=== PATIENT | male | born 1960 | race Caucasian/White ===

== ENCOUNTER → 2016-09-07 | Outpatient (CLI) | payer SELFPAY ==
--- NOTE | 2016-09-07 13:31 | REP ---
Clinical: Shortness of breath. Technique: PA and lateral. Comparison: 05/16/2015. Findings: Mediastinum and cardiac silhouette are stable - mild cardiomegaly again suggested. Lung monsalve demonstrate prominent pulmonary vasculature suggesting the possibility of pulmonary venous congestion versus bronchitis. No focal consolidation, effusion, or pneumothorax. Impression: Increased markings noted bilaterally similar to prior examination. Differential diagnosis would include bronchitis/reactive airway disease as well as mild pulmonary venous congestion. Signed by Charbel Celestin MD 09/07/2016 01:22 P
== END ==
LOC: M WUC 12:48
PROVIDERS: ATTEND Physician Assistant
DX: J20.9 Acute bronchitis, unspecified (principal); R06.02 Shortness of breath; Z72.0 Tobacco use

== ENCOUNTER 2017-07-13 17:06 | Inpatient (IN) | payer SELFPAY ==
[2017-07-13] MEDS: IPRATROPIUM 0.5MG/ALBUTEROL 2.5MG INH SOL UD 3ML (DUONEB)(J7620) NEB ×2 (17:56→19:34)
[2017-07-13 17:59] LABS: ABG BASE EXCESS 12.8 (-2.0-2.0); ABG HCO3 45.9 MEQ/L (22.0-26.0); ABG O2 SATURATION 84.2 % (95.0-99.0); ABG PARTIAL PRESSURE O2 50.2 mmHg (75.0-100.0); ABG STANDARD HCO3 36.2 MEQ/L (22.0-26.0); ABG TOTAL CO2 48.8 MEQ/L (22.0-29.0); ABG pH (ARTERIAL) 7.304 UNITS (7.350-7.450)
[2017-07-13 18:00] LABS: ABG PARTIAL PRESSURE CO2 94.5 mmHg (35.0-45.0)
[2017-07-13] MEDS: methylPREDNISolone INJ 125 MG/2 ML VIAL (J2930) IV (18:09)
[2017-07-13 18:18] LABS: BASO # 0.1 10^3/uL (0.0-0.2); BASO % 0.7 % (0.0-1.0); EOS # 0.1 10^3/uL (0.0-0.50); EOS % 1.2 % (0.0-3.0); HEMATOCRIT 60.3 % (42.0-52.0); HEMOGLOBIN 18.7 g/dl (14.0-18.0); IMMATURE GRANULOCYTE % 0.5 % (0-0); LYMPH # 1.1 10^3/uL (1.5-4.5); MEAN CORPUSCULAR HEMOGLOBIN 29.4 pg (27.0-33.0); MEAN CORPUSCULAR VOLUME 94.8 fl (80.0-96.0); MONO # 0.9 10^3/uL (0.0-0.8); MONO % 10.4 % (0.0-5.0); NEUTROPHILS % 73.2 % (36.0-66.0); PLATELET COUNT, AUTOMATED 116 10^3/uL (150-450); RED BLOOD COUNT 6.36 10^6/uL (4.30-6.10); RED CELL DISTRIBUTION WIDTH 16.9 % (11.5-14.5); WHITE BLOOD COUNT 8.2 10^3/uL (4.0-10.0)
[2017-07-13 18:21] LABS: SUSPECT SAMPLE POS FLAG
[2017-07-13 18:34] LABS: ANION GAP 2 MEQ/L (8-16); BLOOD UREA NITROGEN 64 MG/DL (7-18); CARBON DIOXIDE LEVEL 43 MEQ/L (21-32); CHLORIDE LEVEL 98 MEQ/L (98-107); CREATININE FOR GFR 1.43 MG/DL (0.70-1.30); GLOMERULAR FILTRATION RATE 54.5 (>56); GLUCOSE, FASTING 126 MG/DL (70-105); POTASSIUM SERUM 4.5 MEQ/L (3.5-5.1); SODIUM LEVEL 143 MEQ/L (136-145)
[2017-07-13 18:38] LABS: ALBUMIN 3.1 GM/DL (3.2-5.2); ALBUMIN/GLOBULIN RATIO 1.11 (1.00-1.93); ALKALINE PHOSPHATASE 65 U/L (45-117); ALT/SGPT 25 U/L (12-78); AST/SGOT 17 U/L (7-37); BILIRUBIN,DIRECT 0.1 MG/DL (0.0-0.2); BILIRUBIN,TOTAL 0.5 MG/DL (0.2-1.0); NT-PRO BNP 2943 PG/ML (<125); TOTAL PROTEIN 5.9 GM/DL (6.4-8.2)
[2017-07-13] MEDS ORDERED: ISOVUE-370 76% 100ML VIAL (Q9967) As Ordered (18:40)
[2017-07-13] MEDS: FUROSEMIDE 40 MG/4 ML VIAL (J1940) IV (19:07)
[2017-07-13] MEDS: dexameTHASONE 20 MG/5 ML VIAL (J1100) IV (19:35)
[2017-07-13 21:34] LABS: ABG BASE EXCESS 6.3 (-2.0-2.0); ABG HCO3 38.2 MEQ/L (22.0-26.0); ABG O2 SATURATION 91.9 % (95.0-99.0); ABG PARTIAL PRESSURE O2 64.8 mmHg (75.0-100.0); ABG TOTAL CO2 40.7 MEQ/L (22.0-29.0)
[2017-07-13 21:37] LABS: ABG PARTIAL PRESSURE CO2 83.1 mmHg (35.0-45.0)
[2017-07-13] MEDS ORDERED: GLUCAGON FOR INJ 1 MG VIAL (J1610) SC (23:45)
[2017-07-13] MEDS ORDERED: GLUCOSE 4 GM CHEW TABLET PO (23:45)
[2017-07-13] MEDS ORDERED: DEXTROSE 50% 50 ML SYRINGE IV (23:45)
[2017-07-14] MEDS: IPRATROPIUM 0.5MG/ALBUTEROL 2.5MG INH SOL UD 3ML (DUONEB)(J7620) NEB ×8 (01:50→23:19)
[2017-07-14 05:47] LABS: ALBUMIN 3.5 GM/DL (3.2-5.2); ALKALINE PHOSPHATASE 76 U/L (45-117); ALT/SGPT 28 U/L (12-78); ANION GAP 3 MEQ/L (8-16); AST/SGOT 17 U/L (7-37); BILIRUBIN,TOTAL 0.6 MG/DL (0.2-1.0); BLOOD UREA NITROGEN 55 MG/DL (7-18); CALCIUM LEVEL 7.9 MG/DL (8.5-10.1); CARBON DIOXIDE LEVEL 43 MEQ/L (21-32); CHLORIDE LEVEL 96 MEQ/L (98-107); CREATININE FOR GFR 1.45 MG/DL (0.70-1.30); GLOMERULAR FILTRATION RATE 53.6 (>56); GLUCOSE, FASTING 300 MG/DL (70-105); POTASSIUM SERUM 4.9 MEQ/L (3.5-5.1); SODIUM LEVEL 142 MEQ/L (136-145)
[2017-07-14] MEDS: predniSONE 20 MG TAB PO (08:07)
[2017-07-14] MEDS: PANTOPRAZOLE 40MG TAB (PROTONIX) PO (08:08)
[2017-07-14] MEDS: AZITHROMYCIN 250 MG TAB PO (08:08)
[2017-07-14] MEDS: LISINOPRIL 20 MG TAB PO (08:08)
[2017-07-14] MEDS: hydroCHLOROthiazide 12.5 MG CAPSULE PO (08:08)
[2017-07-14] MEDS: ASPIRIN 81 MG ENTERIC TAB PO (08:08)
[2017-07-14] MEDS: FUROSEMIDE 80 MG TAB PO (08:08)
[2017-07-14] MEDS: HumaLOG INSULIN (NovoLOG) PER UNIT SC ×4 (08:09→21:00)
[2017-07-14 08:19] LABS: ABG BASE EXCESS 12.2 (-2.0-2.0); ABG HCO3 47.3 MEQ/L (22.0-26.0); ABG O2 SATURATION 91.3 % (95.0-99.0); ABG PARTIAL PRESSURE O2 66.9 mmHg (75.0-100.0); ABG STANDARD HCO3 35.9 MEQ/L (22.0-26.0); ABG TOTAL CO2 50.7 MEQ/L (22.0-29.0)
[2017-07-14 08:25] LABS: ABG pH (ARTERIAL) 7.246 UNITS (7.350-7.450)
[2017-07-14 08:26] LABS: ABG PARTIAL PRESSURE CO2 111.4 mmHg (35.0-45.0)
[2017-07-14] MEDS: FUROSEMIDE 100 MG/10 ML VIAL (J1940) IV ×2 (10:41→12:00)
[2017-07-14 11:22] LABS: ABG BASE EXCESS 10.4 (-2.0-2.0); ABG HCO3 44.1 MEQ/L (22.0-26.0); ABG O2 SATURATION 96.2 % (95.0-99.0); ABG PARTIAL PRESSURE O2 88.3 mmHg (75.0-100.0); ABG STANDARD HCO3 34.3 MEQ/L (22.0-26.0); ABG TOTAL CO2 47.1 MEQ/L (22.0-29.0); ABG pH (ARTERIAL) 7.268 UNITS (7.350-7.450)
[2017-07-14 11:24] LABS: ABG PARTIAL PRESSURE CO2 98.6 mmHg (35.0-45.0)
[2017-07-14 12:14] LABS: BEDSIDE GLUCOSE 174 MG/DL (70-105)
[2017-07-14] MEDS: HEPARIN SOD (PORCINE) 5000 UNITS/ML VIAL SC ×2 (14:00→22:10)
[2017-07-14 17:02] LABS: BEDSIDE GLUCOSE 163 MG/DL (70-105)
[2017-07-14 17:07] LABS: BLOOD UREA NITROGEN 49 MG/DL (7-18); CALCIUM LEVEL 8.4 MG/DL (8.5-10.1); CHLORIDE LEVEL 98 MEQ/L (98-107); CREATININE FOR GFR 1.14 MG/DL (0.70-1.30); GLOMERULAR FILTRATION RATE > 60.0 (>56); GLUCOSE, FASTING 180 MG/DL (70-105); POTASSIUM SERUM 4.7 MEQ/L (3.5-5.1); SODIUM LEVEL 144 MEQ/L (136-145)
[2017-07-14 17:24] LABS: ANION GAP 1 MEQ/L (8-16); CARBON DIOXIDE LEVEL 45 MEQ/L (21-32)
[2017-07-14 22:13] LABS: BEDSIDE GLUCOSE 152 MG/DL (70-105)
[2017-07-15] MEDS: IPRATROPIUM 0.5MG/ALBUTEROL 2.5MG INH SOL UD 3ML (DUONEB)(J7620) NEB ×6 (03:24→23:19)
[2017-07-15 05:15] LABS: ALBUMIN 3.1 GM/DL (3.2-5.2); ALBUMIN/GLOBULIN RATIO 1.19 (1.00-1.93); ALKALINE PHOSPHATASE 64 U/L (45-117); ALT/SGPT 24 U/L (12-78); ANION GAP 3 MEQ/L (8-16); AST/SGOT 15 U/L (7-37); BILIRUBIN,TOTAL 0.6 MG/DL (0.2-1.0); BLOOD UREA NITROGEN 39 MG/DL (7-18); CALCIUM LEVEL 8.2 MG/DL (8.5-10.1); CARBON DIOXIDE LEVEL 43 MEQ/L (21-32); CHLORIDE LEVEL 98 MEQ/L (98-107); CREATININE FOR GFR 0.92 MG/DL (0.70-1.30); GLOMERULAR FILTRATION RATE > 60.0 (>56); GLUCOSE, FASTING 157 MG/DL (70-105); POTASSIUM SERUM 4.1 MEQ/L (3.5-5.1); SODIUM LEVEL 144 MEQ/L (136-145); TOTAL PROTEIN 5.7 GM/DL (6.4-8.2)
[2017-07-15] MEDS: HEPARIN SOD (PORCINE) 5000 UNITS/ML VIAL SC ×3 (05:56→21:01)
[2017-07-15 06:27] LABS: ABG BASE EXCESS 14.2 (-2.0-2.0); ABG HCO3 45.2 MEQ/L (22.0-26.0); ABG O2 SATURATION 96.3 % (95.0-99.0); ABG PARTIAL PRESSURE O2 83.1 mmHg (75.0-100.0); ABG STANDARD HCO3 38.3 MEQ/L (22.0-26.0); ABG TOTAL CO2 47.6 MEQ/L (22.0-29.0); ABG pH (ARTERIAL) 7.381 UNITS (7.350-7.450)
[2017-07-15] MEDS: HumaLOG INSULIN (NovoLOG) PER UNIT SC ×4 (07:21→21:00)
[2017-07-15 08:45] LABS: BASO % 0.2 % (0.0-1.0); EOS % 0.3 % (0.0-3.0); IMMATURE GRANULOCYTE # 0.1 10^3/uL (0-0); IMMATURE GRANULOCYTE % 0.6 % (0-0); LYMPH # 1.3 10^3/uL (1.5-4.5); LYMPH % 13.2 % (24.0-44.0); MEAN CORPUSCULAR HEMOGLOBIN 29.2 pg (27.0-33.0); MEAN CORPUSCULAR HGB CONC 30.6 g/dl (32.0-36.5); MEAN CORPUSCULAR VOLUME 95.2 fl (80.0-96.0); MONO # 0.7 10^3/uL (0.0-0.8); NEUTROPHILS % 78.7 % (36.0-66.0); RED BLOOD COUNT 6.51 10^6/uL (4.30-6.10); RED CELL DISTRIBUTION WIDTH 16.9 % (11.5-14.5); WHITE BLOOD COUNT 10.1 10^3/uL (4.0-10.0)
[2017-07-15 08:50] LABS: SUSPECT SAMPLE POS FLAG
[2017-07-15 08:51] LABS: PLATELET COUNT, AUTOMATED 100 10^3/uL (150-450)
[2017-07-15] MEDS: predniSONE 20 MG TAB PO (09:18)
[2017-07-15] MEDS: LISINOPRIL 20 MG TAB PO (09:18)
[2017-07-15] MEDS: PANTOPRAZOLE 40MG TAB (PROTONIX) PO (09:18)
[2017-07-15] MEDS: AZITHROMYCIN 250 MG TAB PO (09:19)
[2017-07-15] MEDS: ASPIRIN 81 MG ENTERIC TAB PO (09:19)
[2017-07-15] MEDS: BUDESONIDE 0.5 MG/2 ML INHALATION SUSPENSION INH ×2 (11:09→19:36)
[2017-07-15 12:15] LABS: BEDSIDE GLUCOSE 228 MG/DL (70-105)
[2017-07-15] MEDS: FUROSEMIDE 100 MG/10 ML VIAL (J1940) IV ×3 (12:41→18:46)
[2017-07-15] MEDS: NICOTINE 14 MG/24 HR TRANSDERMAL TD (12:41)
[2017-07-15 17:22] LABS: BEDSIDE GLUCOSE 189 MG/DL (70-105)
[2017-07-15 18:11] LABS: ALBUMIN 3.3 GM/DL (3.2-5.2); BLOOD UREA NITROGEN 40 MG/DL (7-18); CALCIUM LEVEL 8.7 MG/DL (8.5-10.1); CHLORIDE LEVEL 96 MEQ/L (98-107); CREATININE FOR GFR 1.08 MG/DL (0.70-1.30); GLOMERULAR FILTRATION RATE > 60.0 (>56); GLUCOSE, FASTING 201 MG/DL (70-105); PHOSPHORUS LEVEL 3.6 MG/DL (2.5-4.9); POTASSIUM SERUM 4.6 MEQ/L (3.5-5.1); SODIUM LEVEL 144 MEQ/L (136-145)
[2017-07-15 18:35] LABS: ANION GAP 2 MEQ/L (8-16)
[2017-07-15 21:02] LABS: BEDSIDE GLUCOSE 129 MG/DL (70-105)
[2017-07-16] MEDS: IPRATROPIUM 0.5MG/ALBUTEROL 2.5MG INH SOL UD 3ML (DUONEB)(J7620) NEB ×6 (03:00→23:04)
[2017-07-16 05:13] LABS: HEMATOCRIT 59.9 % (42.0-52.0); HEMOGLOBIN 18.3 g/dl (14.0-18.0); MEAN CORPUSCULAR HEMOGLOBIN 28.5 pg (27.0-33.0); MEAN CORPUSCULAR HGB CONC 30.6 g/dl (32.0-36.5); MEAN CORPUSCULAR VOLUME 93.4 fl (80.0-96.0); PLATELET COUNT, AUTOMATED 103 10^3/uL (150-450); RED BLOOD COUNT 6.41 10^6/uL (4.30-6.10); RED CELL DISTRIBUTION WIDTH 15.8 % (11.5-14.5); WHITE BLOOD COUNT 8.9 10^3/uL (4.0-10.0)
[2017-07-16 05:15] LABS: SUSPECT SAMPLE POS FLAG
[2017-07-16 05:23] LABS: BLOOD UREA NITROGEN 30 MG/DL (7-18); CALCIUM LEVEL 8.2 MG/DL (8.5-10.1); CHLORIDE LEVEL 95 MEQ/L (98-107); CREATININE FOR GFR 0.89 MG/DL (0.70-1.30); GLUCOSE, FASTING 157 MG/DL (70-105); POTASSIUM SERUM 4.1 MEQ/L (3.5-5.1); SODIUM LEVEL 142 MEQ/L (136-145)
[2017-07-16 05:32] LABS: ANION GAP 2 MEQ/L (8-16); CARBON DIOXIDE LEVEL 45 MEQ/L (21-32)
[2017-07-16] MEDS: HEPARIN SOD (PORCINE) 5000 UNITS/ML VIAL SC ×3 (06:33→21:09)
[2017-07-16] MEDS: HumaLOG INSULIN (NovoLOG) PER UNIT SC ×4 (07:40→21:00)
[2017-07-16] MEDS: BUDESONIDE 0.5 MG/2 ML INHALATION SUSPENSION INH ×2 (08:35→23:04)
[2017-07-16] MEDS: AZITHROMYCIN 250 MG TAB PO (08:50)
[2017-07-16] MEDS: NICOTINE 14 MG/24 HR TRANSDERMAL TD (08:50)
[2017-07-16] MEDS: PANTOPRAZOLE 40MG TAB (PROTONIX) PO (08:50)
[2017-07-16] MEDS: ASPIRIN 81 MG ENTERIC TAB PO (08:50)
[2017-07-16] MEDS: predniSONE 20 MG TAB PO (08:50)
[2017-07-16] MEDS: LISINOPRIL 20 MG TAB PO (08:52)
[2017-07-16 11:48] LABS: BEDSIDE GLUCOSE 135 MG/DL (70-105)
[2017-07-16] MEDS: FUROSEMIDE 100 MG/10 ML VIAL (J1940) IV ×2 (12:00→12:43)
[2017-07-16] MEDS: SENOKOT S TAB PO ×2 (12:43→21:09)
[2017-07-16 14:39] LABS: BEDSIDE GLUCOSE 209 MG/DL (70-105)
[2017-07-16 17:38] LABS: BEDSIDE GLUCOSE 247 MG/DL (70-105)
[2017-07-16] MEDS: predniSONE 10 MG TAB PO (21:09)
[2017-07-16 21:11] LABS: BEDSIDE GLUCOSE 149 MG/DL (70-105)
[2017-07-17] MEDS: IPRATROPIUM 0.5MG/ALBUTEROL 2.5MG INH SOL UD 3ML (DUONEB)(J7620) NEB ×6 (03:50→23:40)
[2017-07-17 04:32] LABS: HEMATOCRIT 60.8 % (42.0-52.0); HEMOGLOBIN 18.7 g/dl (14.0-18.0); MEAN CORPUSCULAR HEMOGLOBIN 28.8 pg (27.0-33.0); MEAN CORPUSCULAR HGB CONC 30.8 g/dl (32.0-36.5); MEAN CORPUSCULAR VOLUME 93.7 fl (80.0-96.0); RED BLOOD COUNT 6.49 10^6/uL (4.30-6.10); RED CELL DISTRIBUTION WIDTH 15.2 % (11.5-14.5)
[2017-07-17 04:44] LABS: ANION GAP 2 MEQ/L (8-16); BLOOD UREA NITROGEN 28 MG/DL (7-18); CALCIUM LEVEL 8.4 MG/DL (8.5-10.1); CARBON DIOXIDE LEVEL 42 MEQ/L (21-32); CHLORIDE LEVEL 99 MEQ/L (98-107); CREATININE FOR GFR 0.76 MG/DL (0.70-1.30); GLOMERULAR FILTRATION RATE > 60.0 (>56); GLUCOSE, FASTING 133 MG/DL (70-105); POTASSIUM SERUM 4.7 MEQ/L (3.5-5.1); SODIUM LEVEL 143 MEQ/L (136-145)
[2017-07-17 04:49] LABS: PLATELET COUNT, AUTOMATED 112 10^3/uL (150-450); PLT CLUMPS? POS FLAG; POS COUNT POS FLAG; SUSPECT SAMPLE POS FLAG
[2017-07-17 04:56] LABS: CHOLESTEROL LEVEL 138 MG/DL (<200); CHOLESTEROL RISK RATIO 3.285 (<5); HDL CHOLESTEROL 42 MG/DL (>40); LDL CHOLESTEROL 80.4 MG/DL (<100); NON-HDL-C 96 MG/DL; TRIGLYCERIDES LEVEL 78 MG/DL (<150)
[2017-07-17 05:28] LABS: ABG BASE EXCESS 13.8 (-2.0-2.0); ABG HCO3 45.1 MEQ/L (22.0-26.0); ABG O2 SATURATION 94.3 % (95.0-99.0); ABG PARTIAL PRESSURE O2 73.2 mmHg (75.0-100.0); ABG STANDARD HCO3 37.7 MEQ/L (22.0-26.0); ABG TOTAL CO2 47.6 MEQ/L (22.0-29.0); ABG pH (ARTERIAL) 7.369 UNITS (7.350-7.450)
[2017-07-17] MEDS: HEPARIN SOD (PORCINE) 5000 UNITS/ML VIAL SC ×3 (05:29→21:17)
[2017-07-17] MEDS: BUDESONIDE 0.5 MG/2 ML INHALATION SUSPENSION INH ×2 (07:43→19:33)
[2017-07-17] MEDS: HumaLOG INSULIN (NovoLOG) PER UNIT SC ×4 (08:12→21:00)
[2017-07-17] MEDS: PANTOPRAZOLE 40MG TAB (PROTONIX) PO (09:36)
[2017-07-17] MEDS: LISINOPRIL 20 MG TAB PO (09:37)
[2017-07-17] MEDS: ASPIRIN 81 MG ENTERIC TAB PO (09:37)
[2017-07-17] MEDS: SENOKOT S TAB PO ×2 (09:37→21:16)
[2017-07-17] MEDS: predniSONE 20 MG TAB PO (09:38)
[2017-07-17] MEDS: AZITHROMYCIN 250 MG TAB PO (09:38)
[2017-07-17] MEDS: NICOTINE 14 MG/24 HR TRANSDERMAL TD (09:39)
[2017-07-17 12:15] LABS: BEDSIDE GLUCOSE 168 MG/DL (70-105)
[2017-07-17] MEDS: FUROSEMIDE 100 MG/10 ML VIAL (J1940) IV ×2 (13:13)
[2017-07-17 17:34] LABS: BEDSIDE GLUCOSE 201 MG/DL (70-105)
[2017-07-17 21:06] LABS: BEDSIDE GLUCOSE 212 MG/DL (70-105)
[2017-07-17] MEDS: CARVedilol 3.125 MG TAB PO (21:17)
[2017-07-18] MEDS: FUROSEMIDE 100 MG/10 ML VIAL (J1940) IV
[2017-07-18] MEDS: IPRATROPIUM 0.5MG/ALBUTEROL 2.5MG INH SOL UD 3ML (DUONEB)(J7620) NEB ×6 (04:15→23:19)
[2017-07-18 04:27] LABS: HEMATOCRIT 60.9 % (42.0-52.0); HEMOGLOBIN 18.7 g/dl (14.0-18.0); MEAN CORPUSCULAR HEMOGLOBIN 28.5 pg (27.0-33.0); MEAN CORPUSCULAR HGB CONC 30.7 g/dl (32.0-36.5); MEAN CORPUSCULAR VOLUME 92.8 fl (80.0-96.0); PLATELET COUNT, AUTOMATED 102 10^3/uL (150-450); RED BLOOD COUNT 6.56 10^6/uL (4.30-6.10); RED CELL DISTRIBUTION WIDTH 15.9 % (11.5-14.5); WHITE BLOOD COUNT 8.7 10^3/uL (4.0-10.0)
[2017-07-18 04:43] LABS: ANION GAP 3 MEQ/L (8-16); BLOOD UREA NITROGEN 34 MG/DL (7-18); CALCIUM LEVEL 8.2 MG/DL (8.5-10.1); CARBON DIOXIDE LEVEL 41 MEQ/L (21-32); CHLORIDE LEVEL 101 MEQ/L (98-107); CREATININE FOR GFR 0.74 MG/DL (0.70-1.30); GLOMERULAR FILTRATION RATE > 60.0 (>56); GLUCOSE, FASTING 122 MG/DL (70-105); POTASSIUM SERUM 4.2 MEQ/L (3.5-5.1); SODIUM LEVEL 145 MEQ/L (136-145)
[2017-07-18] MEDS: HEPARIN SOD (PORCINE) 5000 UNITS/ML VIAL SC ×3 (05:49→21:30)
[2017-07-18] MEDS: BUDESONIDE 0.5 MG/2 ML INHALATION SUSPENSION INH ×2 (08:04→20:16)
[2017-07-18] MEDS: NICOTINE 14 MG/24 HR TRANSDERMAL TD (08:27)
[2017-07-18] MEDS: predniSONE 10 MG TAB PO (08:27)
[2017-07-18] MEDS: HumaLOG INSULIN (NovoLOG) PER UNIT SC ×4 (08:27→20:59)
[2017-07-18] MEDS: LISINOPRIL 10 MG TAB PO (08:28)
[2017-07-18] MEDS: PANTOPRAZOLE 40MG TAB (PROTONIX) PO (08:28)
[2017-07-18] MEDS: CARVedilol 3.125 MG TAB PO (08:28)
[2017-07-18] MEDS: ASPIRIN 81 MG ENTERIC TAB PO (08:28)
[2017-07-18] MEDS: SENOKOT S TAB PO ×2 (08:29→21:30)
[2017-07-18 12:01] LABS: BEDSIDE GLUCOSE 203 MG/DL (70-105)
[2017-07-18] MEDS: FUROSEMIDE 40 MG/4 ML VIAL (J1940) IV (14:30)
[2017-07-18 17:13] LABS: BEDSIDE GLUCOSE 150 MG/DL (70-105)
[2017-07-18] MEDS: TORSEMIDE 20 MG TAB PO (17:35)
[2017-07-18 20:48] LABS: BEDSIDE GLUCOSE 160 MG/DL (70-105)
[2017-07-19] MEDS: IPRATROPIUM 0.5MG/ALBUTEROL 2.5MG INH SOL UD 3ML (DUONEB)(J7620) NEB ×6 (03:53→23:32)
[2017-07-19 05:00] LABS: HEMOGLOBIN 18.9 g/dl (14.0-18.0); MEAN CORPUSCULAR HEMOGLOBIN 28.5 pg (27.0-33.0); MEAN CORPUSCULAR HGB CONC 30.5 g/dl (32.0-36.5); MEAN CORPUSCULAR VOLUME 93.5 fl (80.0-96.0); RED BLOOD COUNT 6.63 10^6/uL (4.30-6.10); RED CELL DISTRIBUTION WIDTH 15.9 % (11.5-14.5); WHITE BLOOD COUNT 8.6 10^3/uL (4.0-10.0)
[2017-07-19 05:14] LABS: ANION GAP 5 MEQ/L (8-16); BLOOD UREA NITROGEN 41 MG/DL (7-18); CALCIUM LEVEL 8.3 MG/DL (8.5-10.1); CARBON DIOXIDE LEVEL 41 MEQ/L (21-32); CHLORIDE LEVEL 99 MEQ/L (98-107); CREATININE FOR GFR 0.87 MG/DL (0.70-1.30); GLOMERULAR FILTRATION RATE > 60.0 (>56); GLUCOSE, FASTING 114 MG/DL (70-105); POTASSIUM SERUM 4.1 MEQ/L (3.5-5.1); SODIUM LEVEL 145 MEQ/L (136-145)
[2017-07-19 05:52] LABS: PLATELET COUNT, AUTOMATED 92 10^3/uL (150-450)
[2017-07-19 05:53] LABS: IMMATURE PLATELET FRACTION % 8.5 % (0.0-10.9)
[2017-07-19] MEDS: HEPARIN SOD (PORCINE) 5000 UNITS/ML VIAL SC (06:22)
[2017-07-19] MEDS: BUDESONIDE 0.5 MG/2 ML INHALATION SUSPENSION INH ×2 (08:10→19:58)
[2017-07-19] MEDS: NICOTINE 14 MG/24 HR TRANSDERMAL TD (08:49)
[2017-07-19] MEDS: TORSEMIDE 20 MG TAB PO (08:50)
[2017-07-19] MEDS: LISINOPRIL 10 MG TAB PO (08:50)
[2017-07-19] MEDS: SENOKOT S TAB PO ×2 (08:50→20:41)
[2017-07-19] MEDS: ASPIRIN 81 MG ENTERIC TAB PO (08:50)
[2017-07-19] MEDS: HumaLOG INSULIN (NovoLOG) PER UNIT SC ×4 (08:50→20:41)
[2017-07-19] MEDS: predniSONE 10 MG TAB PO (08:50)
[2017-07-19] MEDS: PANTOPRAZOLE 40MG TAB (PROTONIX) PO (08:50)
[2017-07-19] MEDS: FUROSEMIDE 100 MG/10 ML VIAL (J1940) IV (09:29)
[2017-07-19 09:54] LABS: ABG BASE EXCESS 6.7 (-2.0-2.0); ABG HCO3 33.7 MEQ/L (22.0-26.0); ABG O2 SATURATION 84.3 % (95.0-99.0); ABG PARTIAL PRESSURE CO2 53.7 mmHg (35.0-45.0); ABG STANDARD HCO3 30.1 MEQ/L (22.0-26.0); ABG TOTAL CO2 35.3 MEQ/L (22.0-29.0); ABG pH (ARTERIAL) 7.415 UNITS (7.350-7.450)
[2017-07-19 09:56] LABS: ABG PARTIAL PRESSURE O2 46.3 mmHg (75.0-100.0)
[2017-07-19 10:41] LABS: ABG BASE EXCESS 5.8 (-2.0-2.0); ABG HCO3 33.3 MEQ/L (22.0-26.0); ABG O2 SATURATION 84.2 % (95.0-99.0); ABG PARTIAL PRESSURE CO2 56.4 mmHg (35.0-45.0); ABG STANDARD HCO3 29.2 MEQ/L (22.0-26.0); ABG pH (ARTERIAL) 7.389 UNITS (7.350-7.450)
[2017-07-19 10:43] LABS: ABG PARTIAL PRESSURE O2 47.8 mmHg (75.0-100.0)
[2017-07-19 12:04] LABS: BEDSIDE GLUCOSE 232 MG/DL (70-105)
[2017-07-19 17:51] LABS: BEDSIDE GLUCOSE 169 MG/DL (70-105)
[2017-07-19 20:55] LABS: BEDSIDE GLUCOSE 110 MG/DL (70-105)
[2017-07-20] MEDS: IPRATROPIUM 0.5MG/ALBUTEROL 2.5MG INH SOL UD 3ML (DUONEB)(J7620) NEB ×6 (04:27→23:45)
[2017-07-20 04:40] LABS: HEMATOCRIT 61.2 % (42.0-52.0); HEMOGLOBIN 18.7 g/dl (14.0-18.0); MEAN CORPUSCULAR HEMOGLOBIN 28.2 pg (27.0-33.0); MEAN CORPUSCULAR HGB CONC 30.6 g/dl (32.0-36.5); MEAN CORPUSCULAR VOLUME 92.2 fl (80.0-96.0); RED BLOOD COUNT 6.64 10^6/uL (4.30-6.10); RED CELL DISTRIBUTION WIDTH 15.4 % (11.5-14.5)
[2017-07-20 04:59] LABS: ANION GAP 3 MEQ/L (8-16); BLOOD UREA NITROGEN 52 MG/DL (7-18); CALCIUM LEVEL 8.6 MG/DL (8.5-10.1); CARBON DIOXIDE LEVEL 39 MEQ/L (21-32); CHLORIDE LEVEL 102 MEQ/L (98-107); CREATININE FOR GFR 0.86 MG/DL (0.70-1.30); GLOMERULAR FILTRATION RATE > 60.0 (>56); GLUCOSE, FASTING 126 MG/DL (70-105); POTASSIUM SERUM 3.8 MEQ/L (3.5-5.1); SODIUM LEVEL 144 MEQ/L (136-145)
[2017-07-20 05:12] LABS: PLATELET COUNT, AUTOMATED 96 10^3/uL (150-450)
[2017-07-20 05:52] LABS: CPK CREATINE PHOSPHOKINASE 34 U/L (39-308); MAGNESIUM LEVEL 2.3 MG/DL (1.8-2.4)
[2017-07-20] MEDS: POTASSIUM CHLORIDE 10 MEQ SR TABLET PO (05:58)
[2017-07-20 06:08] LABS: CK-MB VALUE MASS 1.9 NG/ML (0.0-3.6); MB/CK RELATIVE INDEX 5.58 (< OR =4); TROPONIN I 0.03 NG/ML (< 0.10)
[2017-07-20] MEDS: BUDESONIDE 0.5 MG/2 ML INHALATION SUSPENSION INH ×2 (07:22→19:30)
[2017-07-20] MEDS: HumaLOG INSULIN (NovoLOG) PER UNIT SC ×4 (07:30→21:00)
[2017-07-20] MEDS: ASPIRIN 81 MG ENTERIC TAB PO (08:55)
[2017-07-20] MEDS: NICOTINE 14 MG/24 HR TRANSDERMAL TD (08:55)
[2017-07-20] MEDS: PANTOPRAZOLE 40MG TAB (PROTONIX) PO (08:56)
[2017-07-20] MEDS: SENOKOT S TAB PO ×2 (08:56→21:33)
[2017-07-20] MEDS: TORSEMIDE 20 MG TAB PO (08:56)
[2017-07-20] MEDS: LISINOPRIL 10 MG TAB PO (08:56)
[2017-07-20] MEDS: SPIRONOLACTONE 12.5MG PER 1/2 TABLET PO (09:34)
[2017-07-20 11:41] LABS: BEDSIDE GLUCOSE 251 MG/DL (70-105)
[2017-07-20 17:15] LABS: BEDSIDE GLUCOSE 138 MG/DL (70-105)
[2017-07-21] MEDS: IPRATROPIUM 0.5MG/ALBUTEROL 2.5MG INH SOL UD 3ML (DUONEB)(J7620) NEB ×6 (03:13→23:10)
[2017-07-21 04:19] LABS: BEDSIDE GLUCOSE 211 MG/DL (70-105)
[2017-07-21] MEDS: FUROSEMIDE 40 MG/4 ML VIAL (J1940) IV (04:52)
[2017-07-21 06:06] LABS: HEMATOCRIT 62.5 % (42.0-52.0); HEMOGLOBIN 18.7 g/dl (14.0-18.0); MEAN CORPUSCULAR HEMOGLOBIN 28.2 pg (27.0-33.0); MEAN CORPUSCULAR HGB CONC 29.9 g/dl (32.0-36.5); MEAN CORPUSCULAR VOLUME 94.4 fl (80.0-96.0); RED BLOOD COUNT 6.62 10^6/uL (4.30-6.10); RED CELL DISTRIBUTION WIDTH 15.7 % (11.5-14.5); WHITE BLOOD COUNT 8.5 10^3/uL (4.0-10.0)
[2017-07-21 06:09] LABS: PLATELET COUNT, AUTOMATED 88 10^3/uL (150-450); SUSPECT SAMPLE POS FLAG
[2017-07-21 06:10] LABS: IMMATURE PLATELET FRACTION % 10.1 % (0.0-10.9)
[2017-07-21 06:25] LABS: ANION GAP 3 MEQ/L (8-16); BLOOD UREA NITROGEN 41 MG/DL (7-18); CALCIUM LEVEL 8.2 MG/DL (8.5-10.1); CARBON DIOXIDE LEVEL 40 MEQ/L (21-32); CHLORIDE LEVEL 103 MEQ/L (98-107); CREATININE FOR GFR 0.83 MG/DL (0.70-1.30); GLOMERULAR FILTRATION RATE > 60.0 (>56); GLUCOSE, FASTING 111 MG/DL (70-105); MAGNESIUM LEVEL 2.4 MG/DL (1.8-2.4); POTASSIUM SERUM 4.5 MEQ/L (3.5-5.1); SODIUM LEVEL 146 MEQ/L (136-145)
[2017-07-21] MEDS: BUDESONIDE 0.5 MG/2 ML INHALATION SUSPENSION INH ×2 (07:30→20:02)
[2017-07-21] MEDS: SENOKOT S TAB PO ×3 (08:11→21:00)
[2017-07-21] MEDS: SPIRONOLACTONE 12.5MG PER 1/2 TABLET PO (08:11)
[2017-07-21] MEDS: PANTOPRAZOLE 40MG TAB (PROTONIX) PO (08:11)
[2017-07-21] MEDS: TORSEMIDE 20 MG TAB PO (08:11)
[2017-07-21] MEDS: HumaLOG INSULIN (NovoLOG) PER UNIT SC ×4 (08:11→21:00)
[2017-07-21] MEDS: NICOTINE 14 MG/24 HR TRANSDERMAL TD (08:12)
[2017-07-21] MEDS: ASPIRIN 81 MG ENTERIC TAB PO (08:12)
[2017-07-21] MEDS: LISINOPRIL 10 MG TAB PO (08:12)
[2017-07-21] MEDS: HEPARIN SOD (PORCINE) 5000 UNITS/ML VIAL SQ ×3 (09:55→21:22)
[2017-07-21 10:17] LABS: FERRITIN 369 NG/ML (26-388)
[2017-07-21 12:00] LABS: BEDSIDE GLUCOSE 143 MG/DL (70-105)
[2017-07-21 18:24] LABS: BEDSIDE GLUCOSE 137 MG/DL (70-105)
[2017-07-21 22:30] LABS: BEDSIDE GLUCOSE 213 MG/DL (70-105)
[2017-07-22] MEDS: IPRATROPIUM 0.5MG/ALBUTEROL 2.5MG INH SOL UD 3ML (DUONEB)(J7620) NEB ×6 (03:15→23:58)
[2017-07-22 04:26] LABS: HEMATOCRIT 60.2 % (42.0-52.0); HEMOGLOBIN 18.4 g/dl (14.0-18.0); MEAN CORPUSCULAR HEMOGLOBIN 28.7 pg (27.0-33.0); MEAN CORPUSCULAR HGB CONC 30.6 g/dl (32.0-36.5); MEAN CORPUSCULAR VOLUME 93.8 fl (80.0-96.0); RED BLOOD COUNT 6.42 10^6/uL (4.30-6.10); RED CELL DISTRIBUTION WIDTH 15.8 % (11.5-14.5); WHITE BLOOD COUNT 8.8 10^3/uL (4.0-10.0)
[2017-07-22 04:31] LABS: PLATELET COUNT, AUTOMATED 86 10^3/uL (150-450)
[2017-07-22 04:41] LABS: ANION GAP 5 MEQ/L (8-16); BLOOD UREA NITROGEN 50 MG/DL (7-18); CALCIUM LEVEL 8.4 MG/DL (8.5-10.1); CARBON DIOXIDE LEVEL 38 MEQ/L (21-32); CHLORIDE LEVEL 103 MEQ/L (98-107); CREATININE FOR GFR 0.93 MG/DL (0.70-1.30); GLOMERULAR FILTRATION RATE > 60.0 (>56); GLUCOSE, FASTING 140 MG/DL (70-105); MAGNESIUM LEVEL 2.3 MG/DL (1.8-2.4); POTASSIUM SERUM 4.6 MEQ/L (3.5-5.1); SODIUM LEVEL 146 MEQ/L (136-145)
[2017-07-22] MEDS: HEPARIN SOD (PORCINE) 5000 UNITS/ML VIAL SQ ×3 (05:08→20:38)
[2017-07-22] MEDS: BUDESONIDE 0.5 MG/2 ML INHALATION SUSPENSION INH ×2 (07:47→19:45)
[2017-07-22] MEDS: HumaLOG INSULIN (NovoLOG) PER UNIT SC ×4 (07:52→20:39)
[2017-07-22 07:55] LABS: BEDSIDE GLUCOSE 133 MG/DL (70-105)
[2017-07-22] MEDS: PANTOPRAZOLE 40MG TAB (PROTONIX) PO (08:36)
[2017-07-22] MEDS: TORSEMIDE 20 MG TAB PO (08:36)
[2017-07-22] MEDS: NICOTINE 14 MG/24 HR TRANSDERMAL TD (08:36)
[2017-07-22] MEDS: ASPIRIN 81 MG ENTERIC TAB PO (08:36)
[2017-07-22] MEDS: LISINOPRIL 10 MG TAB PO (08:37)
[2017-07-22] MEDS: SPIRONOLACTONE 12.5MG PER 1/2 TABLET PO (08:37)
[2017-07-22] MEDS: SENOKOT S TAB PO ×4 (08:37→20:44)
[2017-07-22 11:41] LABS: BEDSIDE GLUCOSE 188 MG/DL (70-105)
[2017-07-22 17:24] LABS: BEDSIDE GLUCOSE 137 MG/DL (70-105)
[2017-07-22 20:41] LABS: BEDSIDE GLUCOSE 199 MG/DL (70-105)
[2017-07-23] MEDS: IPRATROPIUM 0.5MG/ALBUTEROL 2.5MG INH SOL UD 3ML (DUONEB)(J7620) NEB ×4 (03:14→15:04)
[2017-07-23 05:31] LABS: ANION GAP 3 MEQ/L (8-16); BLOOD UREA NITROGEN 49 MG/DL (7-18); CALCIUM LEVEL 8.9 MG/DL (8.5-10.1); CARBON DIOXIDE LEVEL 41 MEQ/L (21-32); CHLORIDE LEVEL 99 MEQ/L (98-107); CREATININE FOR GFR 0.96 MG/DL (0.70-1.30); GLOMERULAR FILTRATION RATE > 60.0 (>56); GLUCOSE, FASTING 127 MG/DL (70-105); MAGNESIUM LEVEL 2.5 MG/DL (1.8-2.4); POTASSIUM SERUM 4.4 MEQ/L (3.5-5.1); SODIUM LEVEL 143 MEQ/L (136-145)
[2017-07-23] MEDS: HEPARIN SOD (PORCINE) 5000 UNITS/ML VIAL SQ ×2 (06:24→14:02)
[2017-07-23] MEDS: HumaLOG INSULIN (NovoLOG) PER UNIT SC ×3 (07:19→17:19)
[2017-07-23] MEDS: BUDESONIDE 0.5 MG/2 ML INHALATION SUSPENSION INH (07:48)
[2017-07-23] MEDS: NICOTINE 14 MG/24 HR TRANSDERMAL TD (08:00)
[2017-07-23] MEDS: ASPIRIN 81 MG ENTERIC TAB PO (08:00)
[2017-07-23] MEDS: SENOKOT S TAB PO ×2 (08:01→08:07)
[2017-07-23] MEDS: SPIRONOLACTONE 12.5MG PER 1/2 TABLET PO (08:01)
[2017-07-23] MEDS: LISINOPRIL 10 MG TAB PO (08:01)
[2017-07-23] MEDS: TORSEMIDE 20 MG TAB PO (08:01)
[2017-07-23 14:40] LABS: BEDSIDE GLUCOSE 159 MG/DL (70-105)
[2017-07-23 17:22] LABS: BEDSIDE GLUCOSE 120 MG/DL (70-105)
[2017-07-23 19:58] LABS: BEDSIDE GLUCOSE 223 MG/DL (70-105)
== END 2017-07-23 19:51 | disposition home or self-care (01) | DRG 140 ==
LOC: M PCU 07-14 00:58 → M ED 17:06 → M ICU 07-14 09:29 → M ED INP 23:00
DX: J44.1 Chronic obstructive pulmonary disease with (acute) exacerbation (principal); J96.21 Acute and chronic respiratory failure with hypoxia; I50.43 Acute on chronic combined systolic (congestive) and diastolic (congestive) heart failure; I27.81 Cor pulmonale (chronic); N17.9 Acute kidney failure, unspecified; D69.6 Thrombocytopenia, unspecified; E87.2 Acidosis; E66.2 Morbid (severe) obesity with alveolar hypoventilation; J96.22 Acute and chronic respiratory failure with hypercapnia; I50.810 Right heart failure, unspecified; I11.0 Hypertensive heart disease with heart failure; D75.1 Secondary polycythemia; E11.9 Type 2 diabetes mellitus without complications; R94.31 Abnormal electrocardiogram [ECG] [EKG]; F17.200 Nicotine dependence, unspecified, uncomplicated; R00.0 Tachycardia, unspecified; Z79.84 Long term (current) use of oral hypoglycemic drugs; Z79.82 Long term (current) use of aspirin; Z79.899 Other long term (current) drug therapy

== ENCOUNTER → 2017-07-23 | Outpatient (CLI) | payer MEDICAID, SELFPAY | LOC: M SLEEP 19:58 | DX: G47.33 Obstructive sleep apnea (adult) (pediatric) (principal) | CPT/HCPCS: 95811 ==

== ENCOUNTER 2017-08-05 13:41 | Inpatient (IN) | payer MEDICAID, OTHER ==
[2017-08-05 14:21] LABS: BASO # 0.1 10^3/uL (0.0-0.2); BASO % 0.5 % (0.0-1.0); EOS # 0.3 10^3/uL (0.0-0.50); EOS % 2.7 % (0.0-3.0); HEMATOCRIT 48.8 % (42.0-52.0); HEMOGLOBIN 16.1 g/dl (14.0-18.0); IMMATURE GRANULOCYTE # 0.1 10^3/uL (0-0); IMMATURE GRANULOCYTE % 0.5 % (0-0); LYMPH # 0.9 10^3/uL (1.5-4.5); LYMPH % 8.1 % (24.0-44.0); MEAN CORPUSCULAR HEMOGLOBIN 28.5 pg (27.0-33.0); MEAN CORPUSCULAR VOLUME 86.4 fl (80.0-96.0); MONO % 8.9 % (0.0-5.0); NEUTROPHILS # 9.2 10^3/uL (1.8-7.7); NEUTROPHILS % 79.3 % (36.0-66.0); PLATELET COUNT, AUTOMATED 209 10^3/uL (150-450); RED BLOOD COUNT 5.65 10^6/uL (4.30-6.10); RED CELL DISTRIBUTION WIDTH 14.7 % (11.5-14.5); WHITE BLOOD COUNT 11.6 10^3/uL (4.0-10.0)
[2017-08-05 14:33] LABS: INR 1.04; PROTHROMBIN TIME 13.7 SECONDS (12.4-14.5)
[2017-08-05 14:34] LABS: PARTIAL THROMBOPLASTIN TIME 29.4 SECONDS (26.8-37.9)
[2017-08-05 14:39] LABS: ALBUMIN 2.8 GM/DL (3.2-5.2); ALKALINE PHOSPHATASE 81 U/L (45-117); ALT/SGPT 26 U/L (12-78); ANION GAP 4 MEQ/L (8-16); AST/SGOT 15 U/L (7-37); BILIRUBIN,DIRECT 0.2 MG/DL (0.0-0.2); BILIRUBIN,TOTAL 0.5 MG/DL (0.2-1.0); BLOOD UREA NITROGEN 38 MG/DL (7-18); CALCIUM LEVEL 8.4 MG/DL (8.5-10.1); CARBON DIOXIDE LEVEL 39 MEQ/L (21-32); CHLORIDE LEVEL 95 MEQ/L (98-107); CPK CREATINE PHOSPHOKINASE 41 U/L (39-308); CREATININE FOR GFR 1.25 MG/DL (0.70-1.30); GLOMERULAR FILTRATION RATE > 60.0 (>56); GLUCOSE, FASTING 249 MG/DL (70-105); LIPASE 133 U/L (73-393); MB/CK RELATIVE INDEX 2.43 (< OR =4); POTASSIUM SERUM 3.9 MEQ/L (3.5-5.1); SODIUM LEVEL 138 MEQ/L (136-145); TOTAL PROTEIN 6.3 GM/DL (6.4-8.2); TROPONIN I < 0.02 NG/ML (< 0.10)
[2017-08-05] MEDS ORDERED: ISOVUE-370 76% 100ML VIAL (Q9967) As Ordered (14:49)
[2017-08-05 15:02] LABS: LACTIC ACID SEPSIS PROTOCOL 1.4 MMOL/L (0.4-2.0)
[2017-08-05] MEDS: NS 500 ML IV (15:12)
[2017-08-05] MEDS: ASPIRIN 81 MG CHEW TABLET PO (15:38)
[2017-08-05] MEDS: VANCOMYCIN HCL 1,000 MG, VIAL MATE ADAPTER 1 EACH in D5W 250 ML IV ×3 (15:55→23:00)
[2017-08-05 16:50] LABS: ABG BASE EXCESS 3.9 (-2.0-2.0); ABG HCO3 30.4 MEQ/L (22.0-26.0); ABG O2 SATURATION 90.9 % (95.0-99.0); ABG PARTIAL PRESSURE CO2 51.6 mmHg (35.0-45.0); ABG PARTIAL PRESSURE O2 63.2 mmHg (75.0-100.0); ABG STANDARD HCO3 27.8 MEQ/L (22.0-26.0); ABG pH (ARTERIAL) 7.388 UNITS (7.350-7.450)
[2017-08-05] MEDS: PIPERACILLIN/TAZOBACTAM SOD 3.375 GM in APPROPRIATE DILUENT 1 EA IV (17:11)
[2017-08-05] MEDS ORDERED: ONDANSETRON 4MG/2ML VIAL (J2405) IV (17:30)
[2017-08-05] MEDS ORDERED: SENOKOT S TAB PO (17:30)
[2017-08-05] MEDS ORDERED: GLUCAGON FOR INJ 1 MG VIAL (J1610) SC (17:30)
[2017-08-05] MEDS: HumaLOG INSULIN (NovoLOG) PER UNIT SC ×2 (17:30→21:00)
[2017-08-05] MEDS ORDERED: GLUCOSE 4 GM CHEW TABLET PO (17:30)
[2017-08-05] MEDS ORDERED: DEXTROSE 50% 50 ML SYRINGE IV (17:30)
[2017-08-05 18:02] LABS: CPK CREATINE PHOSPHOKINASE 45 U/L (39-308); MB/CK RELATIVE INDEX 2.22 (< OR =4); TROPONIN I < 0.02 NG/ML (< 0.10)
[2017-08-05 18:41] LABS: BEDSIDE GLUCOSE 122 MG/DL (70-105)
[2017-08-05] MEDS: ACETAMINOPHEN TAB 650MG DOSE (2X325MG) PO (19:41)
[2017-08-05] MEDS: AZITHROMYCIN INJ 500 MG, VIAL MATE ADAPTER 1 EACH in D5W 250 ML IV (20:00)
[2017-08-05 20:35] LABS: NT-PRO BNP 1066 PG/ML (<125)
[2017-08-05] MEDS: CEFEPIME HCL 2 GM in APPROPRIATE DILUENT 1 EA IV (21:00)
[2017-08-05] MEDS: HEPARIN SOD (PORCINE) 5000 UNITS/ML VIAL SC (22:00)
[2017-08-05 22:33] LABS: BEDSIDE GLUCOSE 277 MG/DL (70-105)
[2017-08-05] MEDS: BUDESONIDE 0.5 MG/2 ML INHALATION SUSPENSION INH (22:45)
[2017-08-05] MEDS: MORPHINE 2 MG/ML 1ML SYRINGE IV (23:07)
[2017-08-05 23:27] LABS: CK-MB VALUE MASS 1.3 NG/ML (0.0-3.6); CPK CREATINE PHOSPHOKINASE 117 U/L (39-308); MB/CK RELATIVE INDEX 1.11 (< OR =4); TROPONIN I < 0.02 NG/ML (< 0.10)
[2017-08-06] MEDS: GASTROGRAFIN SOLUTION 30ML (Q9963) PO ×2 (00:43)
[2017-08-06] MEDS: PERCOCET 5MG/325MG TAB PO ×3 (00:55→17:32)
[2017-08-06] MEDS: HEPARIN SOD (PORCINE) 5000 UNITS/ML VIAL SC ×3 (05:57→22:20)
[2017-08-06 06:20] LABS: BEDSIDE GLUCOSE 155 MG/DL (70-105)
[2017-08-06] MEDS: MORPHINE 2 MG/ML 1ML SYRINGE IV ×2 (06:42→11:57)
[2017-08-06] MEDS: HumaLOG INSULIN (NovoLOG) PER UNIT SC ×4 (06:43→21:50)
[2017-08-06] MEDS: IPRATROPIUM 0.5MG/ALBUTEROL 2.5MG INH SOL UD 3ML (DUONEB)(J7620) NEB ×5 (06:52→23:41)
[2017-08-06 07:15] LABS: BASO # 0.1 10^3/uL (0.0-0.2); BASO % 0.4 % (0.0-1.0); EOS # 0.4 10^3/uL (0.0-0.50); EOS % 2.9 % (0.0-3.0); HEMOGLOBIN 17.3 g/dl (14.0-18.0); IMMATURE GRANULOCYTE # 0.1 10^3/uL (0-0); IMMATURE GRANULOCYTE % 0.8 % (0-0); LYMPH # 0.4 10^3/uL (1.5-4.5); LYMPH % 3.5 % (24.0-44.0); MEAN CORPUSCULAR HEMOGLOBIN 28.5 pg (27.0-33.0); MEAN CORPUSCULAR VOLUME 88.8 fl (80.0-96.0); MONO % 7.9 % (0.0-5.0); NEUTROPHILS # 10.3 10^3/uL (1.8-7.7); NEUTROPHILS % 84.5 % (36.0-66.0); PLATELET COUNT, AUTOMATED 191 10^3/uL (150-450); RED BLOOD COUNT 6.08 10^6/uL (4.30-6.10); WHITE BLOOD COUNT 12.2 10^3/uL (4.0-10.0)
[2017-08-06] MEDS: BUDESONIDE 0.5 MG/2 ML INHALATION SUSPENSION INH ×2 (07:38→20:43)
[2017-08-06 07:44] LABS: ALBUMIN/GLOBULIN RATIO 0.73 (1.00-1.93); ALKALINE PHOSPHATASE 86 U/L (45-117); ALT/SGPT 31 U/L (12-78); ANION GAP 2 MEQ/L (8-16); AST/SGOT 18 U/L (7-37); BILIRUBIN,TOTAL 0.5 MG/DL (0.2-1.0); BLOOD UREA NITROGEN 28 MG/DL (7-18); CALCIUM LEVEL 8.9 MG/DL (8.5-10.1); CARBON DIOXIDE LEVEL 37 MEQ/L (21-32); CHLORIDE LEVEL 98 MEQ/L (98-107); GLOMERULAR FILTRATION RATE > 60.0 (>56); GLUCOSE, FASTING 156 MG/DL (70-105); POTASSIUM SERUM 5.1 MEQ/L (3.5-5.1); SODIUM LEVEL 137 MEQ/L (136-145); TOTAL PROTEIN 7.1 GM/DL (6.4-8.2)
[2017-08-06] MEDS: VANCOMYCIN HCL 1,000 MG, VIAL MATE ADAPTER 1 EACH in D5W 250 ML IV ×2 (08:13→15:32)
[2017-08-06] MEDS: CEFEPIME HCL 2 GM in APPROPRIATE DILUENT 1 EA IV ×2 (08:55→21:58)
[2017-08-06] MEDS: TORSEMIDE 20 MG TAB PO (08:56)
[2017-08-06] MEDS: SPIRONOLACTONE 12.5MG PER 1/2 TABLET PO (08:56)
[2017-08-06] MEDS: LISINOPRIL 10 MG TAB PO (08:56)
[2017-08-06] MEDS: ASPIRIN 81 MG ENTERIC TAB PO (08:56)
[2017-08-06 12:00] LABS: BEDSIDE GLUCOSE 228 MG/DL (70-105)
[2017-08-06] MEDS ORDERED: ISOVUE-370 76% 100ML VIAL (Q9967) As Ordered (14:51)
[2017-08-06] MEDS: KETOROLAC 30 MG/ML VIAL (J1885) IV (15:39)
[2017-08-06 17:41] LABS: BEDSIDE GLUCOSE 176 MG/DL (70-105)
[2017-08-06] MEDS: AZITHROMYCIN INJ 500 MG, VIAL MATE ADAPTER 1 EACH in D5W 250 ML IV (19:44)
[2017-08-06] MEDS: SODIUM CHLORIDE 0.9% 1000 ML IV ×3 (20:43→23:45)
[2017-08-06 21:46] LABS: BASO # 0.1 10^3/uL (0.0-0.2); BASO % 0.8 % (0.0-1.0); EOS # 0.6 10^3/uL (0.0-0.50); HEMATOCRIT 48.6 % (42.0-52.0); HEMOGLOBIN 15.6 g/dl (14.0-18.0); IMMATURE GRANULOCYTE # 0.1 10^3/uL (0-0); IMMATURE GRANULOCYTE % 0.8 % (0-0); LYMPH % 8.4 % (24.0-44.0); MEAN CORPUSCULAR HEMOGLOBIN 28.7 pg (27.0-33.0); MEAN CORPUSCULAR HGB CONC 32.1 g/dl (32.0-36.5); MEAN CORPUSCULAR VOLUME 89.3 fl (80.0-96.0); MONO # 1.4 10^3/uL (0.0-0.8); NEUTROPHILS # 8.7 10^3/uL (1.8-7.7); PLATELET COUNT, AUTOMATED 189 10^3/uL (150-450); RED BLOOD COUNT 5.44 10^6/uL (4.30-6.10); RED CELL DISTRIBUTION WIDTH 14.9 % (11.5-14.5); WHITE BLOOD COUNT 11.9 10^3/uL (4.0-10.0)
[2017-08-06 21:54] LABS: BEDSIDE GLUCOSE 160 MG/DL (70-105)
[2017-08-06 22:06] LABS: ANION GAP 4 MEQ/L (8-16); BLOOD UREA NITROGEN 39 MG/DL (7-18); CALCIUM LEVEL 8.5 MG/DL (8.5-10.1); CARBON DIOXIDE LEVEL 36 MEQ/L (21-32); CHLORIDE LEVEL 97 MEQ/L (98-107); CREATININE FOR GFR 1.84 MG/DL (0.70-1.30); GLOMERULAR FILTRATION RATE 40.7 (>56); GLUCOSE, FASTING 191 MG/DL (70-105); POTASSIUM SERUM 4.6 MEQ/L (3.5-5.1); SODIUM LEVEL 137 MEQ/L (136-145)
[2017-08-06 22:09] LABS: LACTIC ACID SEPSIS PROTOCOL 1.1 MMOL/L (0.4-2.0)
[2017-08-06] MEDS: methylPREDNISolone INJ 125 MG/2 ML VIAL (J2930) IV (22:20)
[2017-08-06] MEDS: FAMOTIDINE IV BAG 20 MG in APPROPRIATE DILUENT 1 EA IV (22:32)
[2017-08-06] MEDS: diphenhydrAMINE INJ 50MG/ML VIAL (J1200) IV (22:32)
[2017-08-06 22:45] LABS: ABG BASE EXCESS 3.1 (-2.0-2.0); ABG HCO3 31.5 MEQ/L (22.0-26.0); ABG O2 SATURATION 90.9 % (95.0-99.0); ABG PARTIAL PRESSURE O2 61.3 mmHg (75.0-100.0); ABG STANDARD HCO3 27.1 MEQ/L (22.0-26.0); ABG TOTAL CO2 33.5 MEQ/L (22.0-29.0); ABG pH (ARTERIAL) 7.312 UNITS (7.350-7.450)
[2017-08-06 22:46] LABS: ABG PARTIAL PRESSURE CO2 63.7 mmHg (35.0-45.0)
[2017-08-07] MEDS: IPRATROPIUM 0.5MG/ALBUTEROL 2.5MG INH SOL UD 3ML (DUONEB)(J7620) NEB ×4 (01:25→20:00)
[2017-08-07 06:01] LABS: BASO % 0.3 % (0.0-1.0); EOS % 0.4 % (0.0-3.0); HEMATOCRIT 48.6 % (42.0-52.0); HEMOGLOBIN 15.6 g/dl (14.0-18.0); IMMATURE GRANULOCYTE # 0.1 10^3/uL (0-0); IMMATURE GRANULOCYTE % 0.9 % (0-0); LYMPH # 0.3 10^3/uL (1.5-4.5); LYMPH % 2.3 % (24.0-44.0); MEAN CORPUSCULAR HEMOGLOBIN 28.2 pg (27.0-33.0); MEAN CORPUSCULAR HGB CONC 32.1 g/dl (32.0-36.5); MEAN CORPUSCULAR VOLUME 87.7 fl (80.0-96.0); MONO # 0.2 10^3/uL (0.0-0.8); MONO % 1.7 % (0.0-5.0); NEUTROPHILS # 10.4 10^3/uL (1.8-7.7); NEUTROPHILS % 94.4 % (36.0-66.0); PLATELET COUNT, AUTOMATED 208 10^3/uL (150-450); RED BLOOD COUNT 5.54 10^6/uL (4.30-6.10)
[2017-08-07 06:06] LABS: POSITIVE DIFF POS FLAG
[2017-08-07 06:20] LABS: ALBUMIN 2.6 GM/DL (3.2-5.2); ALBUMIN/GLOBULIN RATIO 0.63 (1.00-1.93); ALKALINE PHOSPHATASE 80 U/L (45-117); ALT/SGPT 29 U/L (12-78); ANION GAP 5 MEQ/L (8-16); AST/SGOT 16 U/L (7-37); BILIRUBIN,TOTAL 0.3 MG/DL (0.2-1.0); BLOOD UREA NITROGEN 36 MG/DL (7-18); CALCIUM LEVEL 9.1 MG/DL (8.5-10.1); CARBON DIOXIDE LEVEL 33 MEQ/L (21-32); CHLORIDE LEVEL 98 MEQ/L (98-107); CREATININE FOR GFR 1.57 MG/DL (0.70-1.30); GLOMERULAR FILTRATION RATE 48.9 (>56); GLUCOSE, FASTING 397 MG/DL (70-105); SODIUM LEVEL 136 MEQ/L (136-145); TOTAL PROTEIN 6.7 GM/DL (6.4-8.2)
[2017-08-07 06:28] LABS: POTASSIUM SERUM 5.2 MEQ/L (3.5-5.1)
[2017-08-07] MEDS: HEPARIN SOD (PORCINE) 5000 UNITS/ML VIAL SC ×3 (06:32→21:03)
[2017-08-07] MEDS: BUDESONIDE 0.5 MG/2 ML INHALATION SUSPENSION INH ×2 (07:23→20:39)
[2017-08-07] MEDS: HumaLOG INSULIN (NovoLOG) PER UNIT SC ×4 (07:30→21:03)
[2017-08-07] MEDS: ASPIRIN 81 MG ENTERIC TAB PO (08:53)
[2017-08-07] MEDS: KETOROLAC 30 MG/ML VIAL (J1885) IV (08:53)
[2017-08-07 09:06] LABS: ALBUMIN 2.9 GM/DL (3.2-5.2); ANION GAP 6 MEQ/L (8-16); BLOOD UREA NITROGEN 34 MG/DL (7-18); CALCIUM LEVEL 8.6 MG/DL (8.5-10.1); CARBON DIOXIDE LEVEL 33 MEQ/L (21-32); CHLORIDE LEVEL 99 MEQ/L (98-107); CREATININE FOR GFR 1.39 MG/DL (0.70-1.30); GLOMERULAR FILTRATION RATE 56.3 (>56); GLUCOSE, FASTING 334 MG/DL (70-105); PHOSPHORUS LEVEL 3.2 MG/DL (2.5-4.9); POTASSIUM SERUM 4.9 MEQ/L (3.5-5.1); SODIUM LEVEL 138 MEQ/L (136-145)
[2017-08-07 09:07] LABS: BEDSIDE GLUCOSE 375 MG/DL (70-105)
[2017-08-07 11:49] LABS: BEDSIDE GLUCOSE 420 MG/DL (70-105)
[2017-08-07] MEDS: LevoFLOXacin IV 750 MG in APPROPRIATE DILUENT 1 EA IV (12:15)
[2017-08-07 16:58] LABS: BEDSIDE GLUCOSE 274 MG/DL (70-105)
[2017-08-07] MEDS: AZITHROMYCIN INJ 500 MG, VIAL MATE ADAPTER 1 EACH in D5W 250 ML IV (20:48)
[2017-08-07] MEDS: PERCOCET 5MG/325MG TAB PO (21:11)
[2017-08-07 21:22] LABS: BEDSIDE GLUCOSE 254 MG/DL (70-105)
[2017-08-08] MEDS: IPRATROPIUM 0.5MG/ALBUTEROL 2.5MG INH SOL UD 3ML (DUONEB)(J7620) NEB ×4 (01:04→20:00)
[2017-08-08 04:34] LABS: BASO # 0.1 10^3/uL (0.0-0.2); BASO % 0.3 % (0.0-1.0); EOS # 0.1 10^3/uL (0.0-0.50); EOS % 0.4 % (0.0-3.0); IMMATURE GRANULOCYTE # 0.2 10^3/uL (0-0); IMMATURE GRANULOCYTE % 1.2 % (0-0); LYMPH # 0.8 10^3/uL (1.5-4.5); MEAN CORPUSCULAR HEMOGLOBIN 28.4 pg (27.0-33.0); MEAN CORPUSCULAR HGB CONC 31.9 g/dl (32.0-36.5); MEAN CORPUSCULAR VOLUME 88.8 fl (80.0-96.0); MONO # 1.2 10^3/uL (0.0-0.8); NEUTROPHILS # 14.4 10^3/uL (1.8-7.7); NEUTROPHILS % 86.1 % (36.0-66.0); PLATELET COUNT, AUTOMATED 208 10^3/uL (150-450); RED BLOOD COUNT 5.29 10^6/uL (4.30-6.10); RED CELL DISTRIBUTION WIDTH 14.2 % (11.5-14.5); WHITE BLOOD COUNT 16.8 10^3/uL (4.0-10.0)
[2017-08-08 04:54] LABS: ALBUMIN 2.5 GM/DL (3.2-5.2); ALBUMIN/GLOBULIN RATIO 0.66 (1.00-1.93); ALKALINE PHOSPHATASE 76 U/L (45-117); ALT/SGPT 29 U/L (12-78); ANION GAP 4 MEQ/L (8-16); AST/SGOT 16 U/L (7-37); BILIRUBIN,TOTAL 0.2 MG/DL (0.2-1.0); BLOOD UREA NITROGEN 43 MG/DL (7-18); C REACTIVE PROTEIN QUANTITATIV 8.48 MG/DL (0.00-0.30); CALCIUM LEVEL 8.7 MG/DL (8.5-10.1); CARBON DIOXIDE LEVEL 33 MEQ/L (21-32); CHLORIDE LEVEL 101 MEQ/L (98-107); CREATININE FOR GFR 1.15 MG/DL (0.70-1.30); GLOMERULAR FILTRATION RATE > 60.0 (>56); GLUCOSE, FASTING 266 MG/DL (70-105); POTASSIUM SERUM 4.9 MEQ/L (3.5-5.1); SODIUM LEVEL 138 MEQ/L (136-145); TOTAL PROTEIN 6.3 GM/DL (6.4-8.2)
[2017-08-08] MEDS: HEPARIN SOD (PORCINE) 5000 UNITS/ML VIAL SC ×3 (05:30→21:50)
[2017-08-08] MEDS: methylPREDNISolone INJ 125 MG/2 ML VIAL (J2930) IV ×2 (05:30→17:53)
[2017-08-08 07:13] LABS: BEDSIDE GLUCOSE 201 MG/DL (70-105)
[2017-08-08] MEDS: GASTROGRAFIN SOLUTION 30ML PO (07:35)
[2017-08-08] MEDS: ASPIRIN 81 MG ENTERIC TAB PO (07:35)
[2017-08-08] MEDS: PERCOCET 5MG/325MG TAB PO ×2 (07:36→14:35)
[2017-08-08] MEDS: GASTROGRAFIN SOLUTION 30ML (Q9963) PO (08:13)
[2017-08-08] MEDS ORDERED: ISOVUE-370 76% 100ML VIAL (Q9967) As Ordered (08:48)
[2017-08-08] MEDS: HumaLOG INSULIN (NovoLOG) PER UNIT SC ×4 (09:47→21:49)
[2017-08-08 12:10] LABS: BEDSIDE GLUCOSE 304 MG/DL (70-105)
[2017-08-08] MEDS: LevoFLOXacin IV 750 MG in APPROPRIATE DILUENT 1 EA IV (12:25)
[2017-08-08] MEDS: BUDESONIDE 0.5 MG/2 ML INHALATION SUSPENSION INH ×2 (13:43→20:39)
[2017-08-08] MEDS: KETOROLAC 30 MG/ML VIAL (J1885) IV (17:52)
[2017-08-08 17:56] LABS: BEDSIDE GLUCOSE 327 MG/DL (70-105)
[2017-08-08] MEDS: guaiFENesin ER 600 MG TAB PO (21:49)
[2017-08-08 21:50] LABS: BEDSIDE GLUCOSE 334 MG/DL (70-105)
[2017-08-09] MEDS: IPRATROPIUM 0.5MG/ALBUTEROL 2.5MG INH SOL UD 3ML (DUONEB)(J7620) NEB ×4 (02:49→20:49)
[2017-08-09 04:49] LABS: APPEARANCE, URINE CLEAR (CLEAR); BACTERIA, URINE AUTO NEGATIVE (NEGATIVE); BILIRUBIN, URINE AUTO NEGATIVE (NEGATIVE); BLOOD, URINE BLOOD NEGATIVE (NEGATIVE); COLOR, URINE YELLOW (YELLOW); GLUCOSE, URINE (UA) AUTO 3+ mg/dL (NEGATIVE); KETONE, URINE AUTO NEGATIVE (NEGATIVE); LEUKOCYTE ESTERASE, URINE AUTO NEGATIVE (NEGATIVE); MUCUS, URINE SMALL (NEGATIVE); NITRITE, URINE AUTO NEGATIVE (NEGATIVE); PROTEIN, URINE AUTO NEGATIVE (NEGATIVE); RBC, URINE AUTO 0 /HPF (0-3); SPECIFIC GRAVITY URINE AUTO 1.018 (1.002-1.035); SQUAMOUS EPITHELIAL CELL UR AU 0 /HPF (0-6); UROBILINOGEN, URINE AUTO 0.2 mg/dL (0.0-2.0); WBC, URINE AUTO 0 /HPF (0-3)
[2017-08-09 05:28] LABS: BASO % 0.3 % (0.0-1.0); EOS % 0.1 % (0.0-3.0); HEMATOCRIT 47.6 % (42.0-52.0); HEMOGLOBIN 15.3 g/dl (14.0-18.0); IMMATURE GRANULOCYTE # 0.2 10^3/uL (0-0); IMMATURE GRANULOCYTE % 1.6 % (0-0); LYMPH # 0.7 10^3/uL (1.5-4.5); MEAN CORPUSCULAR HEMOGLOBIN 28.2 pg (27.0-33.0); MEAN CORPUSCULAR HGB CONC 32.1 g/dl (32.0-36.5); MEAN CORPUSCULAR VOLUME 87.7 fl (80.0-96.0); MONO # 0.7 10^3/uL (0.0-0.8); MONO % 4.6 % (0.0-5.0); NEUTROPHILS # 13.1 10^3/uL (1.8-7.7); NEUTROPHILS % 88.4 % (36.0-66.0); PLATELET COUNT, AUTOMATED 197 10^3/uL (150-450); RED BLOOD COUNT 5.43 10^6/uL (4.30-6.10); RED CELL DISTRIBUTION WIDTH 14.1 % (11.5-14.5); WHITE BLOOD COUNT 14.8 10^3/uL (4.0-10.0)
[2017-08-09] MEDS: HEPARIN SOD (PORCINE) 5000 UNITS/ML VIAL SC ×3 (05:35→21:32)
[2017-08-09] MEDS: methylPREDNISolone INJ 125 MG/2 ML VIAL (J2930) IV ×2 (05:35→17:06)
[2017-08-09 05:48] LABS: ALBUMIN 2.6 GM/DL (3.2-5.2); ALBUMIN/GLOBULIN RATIO 0.74 (1.00-1.93); ALKALINE PHOSPHATASE 69 U/L (45-117); ALT/SGPT 27 U/L (12-78); ANION GAP 4 MEQ/L (8-16); AST/SGOT 9 U/L (7-37); BILIRUBIN,TOTAL 0.3 MG/DL (0.2-1.0); BLOOD UREA NITROGEN 42 MG/DL (7-18); C REACTIVE PROTEIN QUANTITATIV 4.12 MG/DL (0.00-0.30); CALCIUM LEVEL 9.1 MG/DL (8.5-10.1); CARBON DIOXIDE LEVEL 33 MEQ/L (21-32); CHLORIDE LEVEL 100 MEQ/L (98-107); CREATININE FOR GFR 0.98 MG/DL (0.70-1.30); GLOMERULAR FILTRATION RATE > 60.0 (>56); GLUCOSE, FASTING 288 MG/DL (70-105); SODIUM LEVEL 137 MEQ/L (136-145); TOTAL PROTEIN 6.1 GM/DL (6.4-8.2)
[2017-08-09 05:49] LABS: POTASSIUM SERUM 5.2 MEQ/L (3.5-5.1)
[2017-08-09] MEDS: BUDESONIDE 0.5 MG/2 ML INHALATION SUSPENSION INH ×2 (07:32→20:49)
[2017-08-09] MEDS: ASPIRIN 81 MG ENTERIC TAB PO (08:17)
[2017-08-09] MEDS: guaiFENesin ER 600 MG TAB PO ×2 (08:17→21:31)
[2017-08-09] MEDS: HumaLOG INSULIN (NovoLOG) PER UNIT SC ×5 (08:18→21:33)
[2017-08-09] MEDS: PERCOCET 5MG/325MG TAB PO ×2 (08:19→17:55)
[2017-08-09] MEDS: KETOROLAC 30 MG/ML VIAL (J1885) IV ×2 (09:17→18:40)
[2017-08-09 12:05] LABS: BEDSIDE GLUCOSE 329 MG/DL (70-105)
[2017-08-09] MEDS: LevoFLOXacin IV 750 MG in APPROPRIATE DILUENT 1 EA IV (12:54)
[2017-08-09] MEDS: SOD POLYSTYRENE SULFONATE SUSP 15 GM/60 ML UD PO (13:36)
[2017-08-09] MEDS: TORSEMIDE 20 MG TAB PO (13:36)
[2017-08-09 17:39] LABS: BEDSIDE GLUCOSE 395 MG/DL (70-105)
[2017-08-09 20:15] LABS: BEDSIDE GLUCOSE 319 MG/DL (70-105)
[2017-08-10] MEDS: IPRATROPIUM 0.5MG/ALBUTEROL 2.5MG INH SOL UD 3ML (DUONEB)(J7620) NEB ×4 (00:17→20:00)
[2017-08-10] MEDS: PERCOCET 5MG/325MG TAB PO ×2 (00:20→08:28)
[2017-08-10 05:33] LABS: BASO % 0.3 % (0.0-1.0); HEMATOCRIT 48.1 % (42.0-52.0); HEMOGLOBIN 15.8 g/dl (14.0-18.0); IMMATURE GRANULOCYTE # 0.2 10^3/uL (0-0); IMMATURE GRANULOCYTE % 1.8 % (0-0); LYMPH # 0.9 10^3/uL (1.5-4.5); LYMPH % 7.4 % (24.0-44.0); MEAN CORPUSCULAR HEMOGLOBIN 28.4 pg (27.0-33.0); MEAN CORPUSCULAR HGB CONC 32.8 g/dl (32.0-36.5); MEAN CORPUSCULAR VOLUME 86.5 fl (80.0-96.0); MONO # 0.5 10^3/uL (0.0-0.8); MONO % 4.5 % (0.0-5.0); NEUTROPHILS # 9.8 10^3/uL (1.8-7.7); PLATELET COUNT, AUTOMATED 176 10^3/uL (150-450); RED BLOOD COUNT 5.56 10^6/uL (4.30-6.10); WHITE BLOOD COUNT 11.5 10^3/uL (4.0-10.0)
[2017-08-10] MEDS: KETOROLAC 30 MG/ML VIAL (J1885) IV (05:38)
[2017-08-10] MEDS: LevoFLOXacin 750 MG TABLET PO (05:38)
[2017-08-10] MEDS: HEPARIN SOD (PORCINE) 5000 UNITS/ML VIAL SC ×3 (05:39→21:40)
[2017-08-10] MEDS: methylPREDNISolone INJ 125 MG/2 ML VIAL (J2930) IV ×2 (05:39→17:18)
[2017-08-10 05:56] LABS: ALBUMIN 2.7 GM/DL (3.2-5.2); ALBUMIN/GLOBULIN RATIO 0.82 (1.00-1.93); ALKALINE PHOSPHATASE 67 U/L (45-117); ALT/SGPT 31 U/L (12-78); ANION GAP 6 MEQ/L (8-16); AST/SGOT 11 U/L (7-37); BILIRUBIN,TOTAL 0.2 MG/DL (0.2-1.0); BLOOD UREA NITROGEN 51 MG/DL (7-18); C REACTIVE PROTEIN QUANTITATIV 2.35 MG/DL (0.00-0.30); CARBON DIOXIDE LEVEL 33 MEQ/L (21-32); CHLORIDE LEVEL 96 MEQ/L (98-107); CREATININE FOR GFR 1.11 MG/DL (0.70-1.30); GLOMERULAR FILTRATION RATE > 60.0 (>56); GLUCOSE, FASTING 387 MG/DL (70-105); POTASSIUM SERUM 4.6 MEQ/L (3.5-5.1); SODIUM LEVEL 135 MEQ/L (136-145)
[2017-08-10] MEDS: BUDESONIDE 0.5 MG/2 ML INHALATION SUSPENSION INH ×2 (07:50→20:00)
[2017-08-10] MEDS: HumaLOG INSULIN (NovoLOG) PER UNIT SC ×4 (08:27→21:38)
[2017-08-10] MEDS: SPIRONOLACTONE 12.5MG PER 1/2 TABLET PO (08:27)
[2017-08-10] MEDS: ASPIRIN 81 MG ENTERIC TAB PO (08:28)
[2017-08-10] MEDS: guaiFENesin ER 600 MG TAB PO ×2 (08:28→21:36)
[2017-08-10] MEDS: TORSEMIDE 20 MG TAB PO (08:28)
[2017-08-10 09:33] LABS: ERYTHROCYTE SEDIMENTATION RATE 8 mm/hr (0-20)
[2017-08-10] MEDS: SODIUM CHLORIDE NASAL 0.65% SPRAY BTL (OCEAN) ×3 (10:45→21:40)
[2017-08-10 11:27] LABS: BEDSIDE GLUCOSE 390 MG/DL (70-105)
[2017-08-10] MEDS: INFLUENZA QUADRIVALENT PF VACCINE 0.5ML SYRINGE (90686) IM (11:47)
[2017-08-10] MEDS: LEVEMIR (INSULIN DETEMIR) 1 UNITS/0.01ML SC ×2 (11:47→21:39)
[2017-08-10] MEDS: PNEUMOCOCCAL VACCINE 0.5ML SYRINGE(90732) PNEUMOVAX 23 IM (11:48)
[2017-08-10 16:44] LABS: BEDSIDE GLUCOSE 391 MG/DL (70-105)
[2017-08-10 20:18] LABS: BEDSIDE GLUCOSE 397 MG/DL (70-105)
[2017-08-11] MEDS: IPRATROPIUM 0.5MG/ALBUTEROL 2.5MG INH SOL UD 3ML (DUONEB)(J7620) NEB ×4 (02:48→20:27)
[2017-08-11] MEDS: LevoFLOXacin 750 MG TABLET PO (05:52)
[2017-08-11] MEDS: HEPARIN SOD (PORCINE) 5000 UNITS/ML VIAL SC ×3 (05:52→22:33)
[2017-08-11] MEDS: methylPREDNISolone INJ 125 MG/2 ML VIAL (J2930) IV ×2 (05:52→17:46)
[2017-08-11 06:33] LABS: BASO % 0.2 % (0.0-1.0); EOS % 0.1 % (0.0-3.0); HEMATOCRIT 49.8 % (42.0-52.0); HEMOGLOBIN 16.3 g/dl (14.0-18.0); IMMATURE GRANULOCYTE # 0.3 10^3/uL (0-0); IMMATURE GRANULOCYTE % 2.4 % (0-0); LYMPH # 1.1 10^3/uL (1.5-4.5); MEAN CORPUSCULAR HGB CONC 32.7 g/dl (32.0-36.5); MEAN CORPUSCULAR VOLUME 85.4 fl (80.0-96.0); MONO # 0.7 10^3/uL (0.0-0.8); MONO % 5.8 % (0.0-5.0); NEUTROPHILS # 10.3 10^3/uL (1.8-7.7); NEUTROPHILS % 82.5 % (36.0-66.0); PLATELET COUNT, AUTOMATED 184 10^3/uL (150-450); RED BLOOD COUNT 5.83 10^6/uL (4.30-6.10); WHITE BLOOD COUNT 12.5 10^3/uL (4.0-10.0)
[2017-08-11 06:56] LABS: ALBUMIN 2.7 GM/DL (3.2-5.2); ALBUMIN/GLOBULIN RATIO 0.82 (1.00-1.93); ALKALINE PHOSPHATASE 66 U/L (45-117); ALT/SGPT 31 U/L (12-78); ANION GAP 6 MEQ/L (8-16); AST/SGOT 14 U/L (7-37); BILIRUBIN,TOTAL 0.4 MG/DL (0.2-1.0); BLOOD UREA NITROGEN 48 MG/DL (7-18); C REACTIVE PROTEIN QUANTITATIV 1.46 MG/DL (0.00-0.30); CALCIUM LEVEL 9.1 MG/DL (8.5-10.1); CARBON DIOXIDE LEVEL 36 MEQ/L (21-32); CHLORIDE LEVEL 97 MEQ/L (98-107); CREATININE FOR GFR 0.97 MG/DL (0.70-1.30); GLOMERULAR FILTRATION RATE > 60.0 (>56); GLUCOSE, FASTING 272 MG/DL (70-100); POTASSIUM SERUM 4.6 MEQ/L (3.5-5.1); SODIUM LEVEL 139 MEQ/L (136-145)
[2017-08-11] MEDS: BUDESONIDE 0.5 MG/2 ML INHALATION SUSPENSION INH ×2 (07:09→20:27)
[2017-08-11] MEDS: SPIRONOLACTONE 12.5MG PER 1/2 TABLET PO (08:43)
[2017-08-11] MEDS: guaiFENesin ER 600 MG TAB PO ×2 (08:44→22:30)
[2017-08-11] MEDS: ASPIRIN 81 MG ENTERIC TAB PO (08:44)
[2017-08-11] MEDS: HumaLOG INSULIN (NovoLOG) PER UNIT SC ×4 (08:44→22:34)
[2017-08-11] MEDS: TORSEMIDE 20 MG TAB PO (08:44)
[2017-08-11] MEDS: LEVEMIR (INSULIN DETEMIR) 1 UNITS/0.01ML SC ×2 (08:45→22:31)
[2017-08-11] MEDS: SODIUM CHLORIDE NASAL 0.65% SPRAY BTL (OCEAN) ×3 (08:45→22:32)
[2017-08-11 13:23] LABS: BEDSIDE GLUCOSE 448 MG/DL (70-105)
[2017-08-11 17:40] LABS: BEDSIDE GLUCOSE 365 MG/DL (70-105)
[2017-08-11 20:42] LABS: BEDSIDE GLUCOSE 356 MG/DL (70-105)
[2017-08-12] MEDS: PERCOCET 5MG/325MG TAB PO (00:36)
[2017-08-12] MEDS: IPRATROPIUM 0.5MG/ALBUTEROL 2.5MG INH SOL UD 3ML (DUONEB)(J7620) NEB ×2 (03:03→07:22)
[2017-08-12] MEDS: LevoFLOXacin 750 MG TABLET PO (05:17)
[2017-08-12] MEDS: HEPARIN SOD (PORCINE) 5000 UNITS/ML VIAL SC (05:17)
[2017-08-12] MEDS: methylPREDNISolone INJ 125 MG/2 ML VIAL (J2930) IV (05:18)
[2017-08-12 06:33] LABS: BASO % 0.3 % (0.0-1.0); EOS % 0.1 % (0.0-3.0); HEMATOCRIT 51.8 % (42.0-52.0); HEMOGLOBIN 16.9 g/dl (14.0-18.0); IMMATURE GRANULOCYTE # 0.4 10^3/uL (0-0); IMMATURE GRANULOCYTE % 2.9 % (0-0); LYMPH % 8.3 % (24.0-44.0); MEAN CORPUSCULAR HEMOGLOBIN 27.9 pg (27.0-33.0); MEAN CORPUSCULAR HGB CONC 32.6 g/dl (32.0-36.5); MEAN CORPUSCULAR VOLUME 85.6 fl (80.0-96.0); MONO # 0.6 10^3/uL (0.0-0.8); MONO % 4.8 % (0.0-5.0); NEUTROPHILS # 9.9 10^3/uL (1.8-7.7); NEUTROPHILS % 83.6 % (36.0-66.0); PLATELET COUNT, AUTOMATED 170 10^3/uL (150-450); RED BLOOD COUNT 6.05 10^6/uL (4.30-6.10); WHITE BLOOD COUNT 11.9 10^3/uL (4.0-10.0)
[2017-08-12 06:52] LABS: ANION GAP 4 MEQ/L (8-16); BLOOD UREA NITROGEN 50 MG/DL (7-18); CARBON DIOXIDE LEVEL 39 MEQ/L (21-32); CHLORIDE LEVEL 94 MEQ/L (98-107); CREATININE FOR GFR 1.09 MG/DL (0.70-1.30); GLOMERULAR FILTRATION RATE > 60.0 (>56); GLUCOSE, FASTING 297 MG/DL (70-100); POTASSIUM SERUM 4.4 MEQ/L (3.5-5.1); SODIUM LEVEL 137 MEQ/L (136-145)
[2017-08-12 06:53] LABS: ALBUMIN 2.9 GM/DL (3.2-5.2); ALBUMIN/GLOBULIN RATIO 0.88 (1.00-1.93); ALKALINE PHOSPHATASE 66 U/L (45-117); ALT/SGPT 35 U/L (12-78); AST/SGOT 13 U/L (7-37); BILIRUBIN,TOTAL 0.3 MG/DL (0.2-1.0); CALCIUM LEVEL 9.1 MG/DL (8.5-10.1); TOTAL PROTEIN 6.2 GM/DL (6.4-8.2)
[2017-08-12] MEDS: BUDESONIDE 0.5 MG/2 ML INHALATION SUSPENSION INH (07:22)
[2017-08-12] MEDS: HumaLOG INSULIN (NovoLOG) PER UNIT SC ×2 (08:00→12:25)
[2017-08-12] MEDS: guaiFENesin ER 600 MG TAB PO (08:00)
[2017-08-12] MEDS: SPIRONOLACTONE 12.5MG PER 1/2 TABLET PO (08:00)
[2017-08-12] MEDS: SODIUM CHLORIDE NASAL 0.65% SPRAY BTL (OCEAN) (08:01)
[2017-08-12] MEDS: LEVEMIR (INSULIN DETEMIR) 1 UNITS/0.01ML SC (08:01)
[2017-08-12] MEDS: ASPIRIN 81 MG ENTERIC TAB PO (08:01)
[2017-08-12] MEDS: TORSEMIDE 20 MG TAB PO (08:01)
[2017-08-12 08:51] LABS: ESTIMATED AVERAGE GLUCOSE 180 MG/DL (60-110); HEMOGLOBIN A1c 7.9 %
[2017-08-12 11:55] LABS: BEDSIDE GLUCOSE 395 MG/DL (70-105)
[2017-08-12] MEDS ORDERED: predniSONE 20 MG TAB PO (21:00)
== END 2017-08-12 13:18 | disposition home or self-care (01) | DRG 139 ==
LOC: M PCU 08-07 00:13 → M MSPAV 08-10 19:08 → M ED 13:41 → M ED INP 18:54
DX: J18.9 Pneumonia, unspecified organism (principal); J96.21 Acute and chronic respiratory failure with hypoxia; I50.43 Acute on chronic combined systolic (congestive) and diastolic (congestive) heart failure; N17.9 Acute kidney failure, unspecified; J96.22 Acute and chronic respiratory failure with hypercapnia; I11.0 Hypertensive heart disease with heart failure; J44.9 Chronic obstructive pulmonary disease, unspecified; E11.9 Type 2 diabetes mellitus without complications; Z87.891 Personal history of nicotine dependence; Z79.82 Long term (current) use of aspirin; Z79.84 Long term (current) use of oral hypoglycemic drugs; Y95 Nosocomial condition; Z79.899 Other long term (current) drug therapy

== ENCOUNTER → 2017-08-18 | Outpatient (REF) | payer OTHER ==
[2017-08-18 14:38] LABS: ESTIMATED AVERAGE GLUCOSE 209 MG/DL (60-110); HEMOGLOBIN A1c 8.9 %
== END ==
LOC: M SFHCPLAZ 10:41
DX: E11.9 Type 2 diabetes mellitus without complications (principal)
CPT/HCPCS: 83036

== ENCOUNTER → 2017-10-20 | Outpatient (REF) | payer OTHER ==
[2017-10-20 16:12] LABS: CREATININE, URINE < 13.0 MG/DL; MALB URINE SIEMENS < 5.0 MG/L
== END ==
LOC: M SFHCPLAZ 15:21
DX: E11.9 Type 2 diabetes mellitus without complications (principal)
CPT/HCPCS: 82043

== ENCOUNTER → 2018-01-18 | Outpatient (CLI) | payer OTHER ==
[2018-01-18 14:42] LABS: ESTIMATED AVERAGE GLUCOSE 148 MG/DL (60-110); HEMOGLOBIN A1c 6.8 %
[2018-01-18 14:58] LABS: CHOLESTEROL LEVEL 156 MG/DL (<200); CHOLESTEROL RISK RATIO 4.105 (<5); HDL CHOLESTEROL 38 MG/DL (>40); LDL CHOLESTEROL 80.8 MG/DL (<100); NON-HDL-C 118 MG/DL; TRIGLYCERIDES LEVEL 186 MG/DL (<150)
[2018-01-18 15:06] LABS: VITAMIN B12 LEVEL 624 PG/ML (247-911)
== END ==
LOC: M LAB 13:45
DX: E11.9 Type 2 diabetes mellitus without complications (principal); Z13.220 Encounter for screening for lipoid disorders
CPT/HCPCS: 82607

== ENCOUNTER → 2018-01-18 | Outpatient (CLI) | payer OTHER ==
[2018-01-18 14:22] LABS: BASO # 0.1 10^3/uL (0.0-0.2); BASO % 0.7 % (0.0-1.0); EOS # 0.2 10^3/uL (0.0-0.50); EOS % 2.6 % (0.0-3.0); HEMATOCRIT 44.7 % (42.0-52.0); HEMOGLOBIN 15.8 g/dl (13.5-17.5); IMMATURE GRANULOCYTE % 0.7 % (0-3.0); LYMPH # 1.3 10^3/uL (1.5-4.5); LYMPH % 17.3 % (24.0-44.0); MEAN CORPUSCULAR HEMOGLOBIN 32.1 pg (27.0-33.0); MEAN CORPUSCULAR HGB CONC 35.3 g/dl (32.0-36.5); MEAN CORPUSCULAR VOLUME 90.9 fl (80.0-96.0); MONO # 0.6 10^3/uL (0.0-0.8); MONO % 8.2 % (0.0-5.0); NEUTROPHILS # 5.3 10^3/uL (1.8-7.7); NEUTROPHILS % 70.5 % (36.0-66.0); PLATELET COUNT, AUTOMATED 121 10^3/uL (150-450); RED BLOOD COUNT 4.92 10^6/uL (4.30-6.10); RED CELL DISTRIBUTION WIDTH 12.7 % (11.5-14.5); WHITE BLOOD COUNT 7.6 10^3/uL (4.0-10.0)
[2018-01-18 14:57] LABS: ANION GAP 8 MEQ/L (8-16); BLOOD UREA NITROGEN 15 MG/DL (7-18); CALCIUM LEVEL 8.6 MG/DL (8.5-10.1); CARBON DIOXIDE LEVEL 30 MEQ/L (21-32); CHLORIDE LEVEL 105 MEQ/L (98-107); CREATININE FOR GFR 0.97 MG/DL (0.70-1.30); GLOMERULAR FILTRATION RATE > 60.0 (>56); GLUCOSE, FASTING 145 MG/DL (70-100); SODIUM LEVEL 143 MEQ/L (136-145)
== END ==
LOC: M LAB 13:42
DX: I42.9 Cardiomyopathy, unspecified (principal)
CPT/HCPCS: 80048

== ENCOUNTER 2018-02-01 13:38 | Outpatient (RCR) | payer OTHER | END 2018-02-16 | LOC: M PT 13:38 | DX: Z51.89 Encounter for other specified aftercare (principal); S39.012A Strain of muscle, fascia and tendon of lower back, initial encounter | CPT/HCPCS: 97110 ==

== ENCOUNTER → 2018-02-02 | Outpatient (CLI) | payer OTHER | LOC: M CARPUL 13:05 | DX: G47.33 Obstructive sleep apnea (adult) (pediatric) (principal) | CPT/HCPCS: 94060 ==

== ENCOUNTER 2018-02-17 11:31 | Outpatient (RCR) | payer OTHER | END 2018-03-19 | LOC: M PT 02-24 11:15 | DX: Z51.89 Encounter for other specified aftercare (principal); S39.012A Strain of muscle, fascia and tendon of lower back, initial encounter | CPT/HCPCS: 97010 ==

== ENCOUNTER → 2018-03-02 | Outpatient (CLI) | payer OTHER ==
[2018-03-02 10:30] LABS: BASO # 0.1 10^3/uL (0.0-0.2); BASO % 0.9 % (0.0-1.0); EOS # 0.3 10^3/uL (0.0-0.50); EOS % 2.7 % (0.0-3.0); HEMATOCRIT 44.4 % (42.0-52.0); HEMOGLOBIN 15.6 g/dl (13.5-17.5); IMMATURE GRANULOCYTE % 0.6 % (0-3.0); LYMPH # 1.7 10^3/uL (1.5-4.5); MEAN CORPUSCULAR HGB CONC 35.1 g/dl (32.0-36.5); MONO % 9.2 % (0.0-5.0); NEUTROPHILS # 7.4 10^3/uL (1.8-7.7); NEUTROPHILS % 70.6 % (36.0-66.0); PLATELET COUNT, AUTOMATED 142 10^3/uL (150-450); RED BLOOD COUNT 4.88 10^6/uL (4.30-6.10); RED CELL DISTRIBUTION WIDTH 13.3 % (11.5-14.5); WHITE BLOOD COUNT 10.5 10^3/uL (4.0-10.0)
[2018-03-02 10:53] LABS: ANION GAP 6 MEQ/L (8-16); BLOOD UREA NITROGEN 26 MG/DL (7-18); CARBON DIOXIDE LEVEL 33 MEQ/L (21-32); CHLORIDE LEVEL 101 MEQ/L (98-107); CREATININE FOR GFR 1.39 MG/DL (0.70-1.30); GLOMERULAR FILTRATION RATE 56.3 (>56); GLUCOSE, FASTING 162 MG/DL (70-100); POTASSIUM SERUM 4.5 MEQ/L (3.5-5.1); SODIUM LEVEL 140 MEQ/L (136-145)
== END ==
LOC: M LAB 10:06
DX: I42.9 Cardiomyopathy, unspecified (principal)
CPT/HCPCS: 80048

== ENCOUNTER 2018-03-24 10:35 | Outpatient (RCR) | payer OTHER | END 2018-04-18 | LOC: M PT 10:35 | DX: S39.012D Strain of muscle, fascia and tendon of lower back, subsequent encounter (principal) | CPT/HCPCS: 97010 ==

== ENCOUNTER → 2018-04-07 | Outpatient (CLI) | payer OTHER ==
[2018-04-07 15:55] LABS: ESTIMATED AVERAGE GLUCOSE 143 MG/DL (60-110); HEMOGLOBIN A1c 6.6 %
== END ==
LOC: M LAB 14:59
DX: E11.9 Type 2 diabetes mellitus without complications (principal)
CPT/HCPCS: 83036

== ENCOUNTER 2018-04-28 11:17 | Outpatient (RCR) | payer OTHER | END 2018-05-19 | LOC: M PT 11:17 | DX: S39.012A Strain of muscle, fascia and tendon of lower back, initial encounter (principal) | CPT/HCPCS: 97010 ==

== ENCOUNTER 2018-10-28 11:31 | Emergency (ER) | payer OTHER ==
[~2018-10-28] VITALS: Ht 185.4 cm; Wt 136.4 kg
[~2018-10-28 11:31] MED LIST: ALBU83IN INH; ALDA25TA2 PO; ASPI81TA26 PO; ASPI81TAEC PO; BUDE0.5S6 INH; DEMA20TA6 PO; FURO80TA2 PO; IPRA0.00 INH; IPRA0.00 NEB; LEVA750T7 PO; LISI-542 PO; LISI10TA4 PO; LISI20TA; LISI20TA PO; METF-839 PO; METF10004 PO; METF500T4 PO; MUCI600T37 PO; PRED10TA2 PO; PROAAER10 INH; SENN-50 PO; SENN1TAB40 PO; SPIR-10 PO; TORS20TA2 PO; VENTAER IN
[2018-10-28] MEDS ORDERED: ENTR1TAB PO (11:39)
[2018-10-28] MEDS ORDERED: INCR1INH (11:39)
[2018-10-28] MEDS ORDERED: FLUT1INH3 (11:39)
[2018-10-28] MEDS ORDERED: ATOR1TAB21 (11:39)
[2018-10-28] MEDS ORDERED: VITA500045 (11:39)
[2018-10-28] MEDS ORDERED: MONT10TA2 (11:39)
[2018-10-28] MEDS ORDERED: CARV3.12 (11:39)
[2018-10-28] MEDS ORDERED: MORPHINE 4 MG/ML 1ML VIAL/SYRINGE (J2270) IV ONE (12:45)
--- NOTE | 2018-10-28 13:34 | REP ---
Left foot four views: There are no comparisons. There is a fracture at the base of the fifth digit proximal phalange laterally, age indeterminate. This should be correlated with clinical point tenderness. The joint spaces are unremarkable. There are no calcifications or foreign bodies. There are calcaneal plantar and Achilles spurs. Impression: Age indeterminate fracture at the base of the fifth digit proximal phalange. Calcaneal spurs. Electronically Signed by Brandon Cedillo MD 10/28/2018 01:26 P
--- NOTE | 2018-10-28 13:36 | REP ---
PA and lateral chest: Comparison is the portable chest dated 08/06/2017. There has been placement of a triple lead biventricular pacemaker. The previous cardiomegaly is no longer identified. The previous left lung infiltrate has resolved. Lung monsalve are clear. Cardiac size is normal. The karla, mediastinum, and skeletal structures are unremarkable. Impression: There are no acute cardiopulmonary findings. There is a triple lead biventricular pacemaker. Electronically Signed by Brandon Cedillo MD 10/28/2018 01:27 P
[2018-10-28 13:54] LABS: BASO # 0.1 10^3/uL (0.0-0.2); BASO % 0.5 % (0.0-1.0); EOS # 0.2 10^3/uL (0.0-0.50); EOS % 1.6 % (0.0-3.0); HEMATOCRIT 43.1 % (42.0-52.0); LYMPH # 1.3 10^3/uL (1.5-4.5); LYMPH % 9.5 % (24.0-44.0); MEAN CORPUSCULAR HGB CONC 34.8 g/dl (32.0-36.5); MEAN CORPUSCULAR VOLUME 91.9 fl (80.0-96.0); MONO % 7.1 % (0.0-5.0); NEUTROPHILS # 11.1 10^3/uL (1.8-7.7); NEUTROPHILS % 80.7 % (36.0-66.0); PLATELET COUNT, AUTOMATED 145 10^3/uL (150-450); RED BLOOD COUNT 4.69 10^6/uL (4.30-6.10); WHITE BLOOD COUNT 13.7 10^3/uL (4.0-10.0)
[2018-10-28 14:25] LABS: BLOOD UREA NITROGEN 16 MG/DL (7-18); CARBON DIOXIDE LEVEL 31 MEQ/L (21-32); CHLORIDE LEVEL 99 MEQ/L (98-107); CPK CREATINE PHOSPHOKINASE 92 U/L (39-308); CREATININE FOR GFR 1.19 MG/DL (0.70-1.30); GLOMERULAR FILTRATION RATE > 60.0 (>56); GLUCOSE, FASTING 209 MG/DL (70-100); POTASSIUM SERUM 3.7 MEQ/L (3.5-5.1); SODIUM LEVEL 137 MEQ/L (136-145)
[2018-10-28 14:26] LABS: NT-PRO BNP 201 PG/ML (<125); TROPONIN I < 0.02 NG/ML (< 0.10); URIC ACID 10.2 MG/DL (3.5-7.2)
[2018-10-28] MEDS ORDERED: NORCO, ANEXSIA 5/325MG TABLET (HYDROcodone/ACETAMINOPHEN) PO ONE (14:45)
[2018-10-28] MEDS ORDERED: COLC1TAB13 PO (14:46)
[2018-10-28] MEDS ORDERED: NORC1TAB7 PO (14:47)
[2018-10-28] MEDS ORDERED: COLCHICINE 0.6 MG TAB PO ONE (15:00)
[2018-10-28 15:15] VITALS: BP 110/54
--- NOTE | 2018-10-28 16:00 | ECGEPIP ---
Stationary ECG Study [facility] - ED Test Date: 2018-10-28 Pat Name: MELE BANKS Department: Room: - Gender: M Market Research Assistant: annita : 1960 Requested By: YASSINE BECERRA Order Number: [id number] Reading MD: Yassine Sin Measurements Intervals [place] Rate: 99 P: 51 AL: 177 QRS: -28 QRSD: 138 T: 76 QT: 375 QTc: 481 Interpretive Statements ELECTRONIC VENTRICULAR PACEMAKER ABNORMAL RHYTHM ECG Electronically Signed On 10-28-2018 16:00:12 EDT by Yassine Sin
--- NOTE | 2018-10-29 07:28 | REP ---
Left lower extremity deep vein duplex ultrasound: The deep veins demonstrate normal compression, normal Doppler color flow and normal Doppler waveforms with respiration and augmentation from the popliteal vein to the common femoral vein. Impression: There is no left lower extremity deep vein thrombus. Electronically Signed by Brandon Cedillo MD 10/28/2018 01:47 P
== END 2018-10-28 15:35 | disposition home or self-care (01) ==
LOC: M ED 11:31
DX: M10.9 Gout, unspecified (principal); J44.9 Chronic obstructive pulmonary disease, unspecified; E11.9 Type 2 diabetes mellitus without complications; I50.20 Unspecified systolic (congestive) heart failure; F17.210 Nicotine dependence, cigarettes, uncomplicated; I10 Essential (primary) hypertension; M54.9 Dorsalgia, unspecified; Z79.82 Long term (current) use of aspirin; Z79.84 Long term (current) use of oral hypoglycemic drugs; Z79.899 Other long term (current) drug therapy
CPT/HCPCS: 36415; 71046; 73630; 80048; 82550; 82553; 83880; 84550; 85025; 93005; 93971; 96374; 99284; J2270

== ENCOUNTER → 2018-11-15 | Outpatient (CLI) | payer OTHER ==
[~2018-11-15] MED LIST changes: +ATOR1TAB21; +CARV3.12; +COLC1TAB13 PO; +ENTR1TAB PO; +FLUT1INH3; +INCR1INH; +MONT10TA2; +NORC1TAB7 PO; +VITA500045
[2018-11-15 16:49] LABS: BLOOD UREA NITROGEN 25 MG/DL (7-18); CREATININE FOR GFR 1.25 MG/DL (0.70-1.30); GLOMERULAR FILTRATION RATE > 60.0 (>56)
== END ==
LOC: M LAB 15:55
PROVIDERS: ATTEND Internal Medicine Pulmonary Disease
DX: Z01.812 Encounter for preprocedural laboratory examination (principal); R91.8 Other nonspecific abnormal finding of lung field

== ENCOUNTER → 2018-11-24 | Outpatient (CLI) | payer OTHER ==
[~2018-11-24] MED LIST changes: +ISOVUE-370 76% 100ML VIAL (Q9967) As Ordered ONE
--- NOTE | 2018-11-26 07:42 | REP ---
Clinical: Follow up abnormal lung findings. Technique: Axial contrast enhanced images from the thoracic inlet to the upper abdomen with coronal and sagittal re-formations using 100 ml Isovue 370 intravenous contrast material. Comparison: 08/05/2017. Findings: The bilateral lung monsalve are relatively well aerated. Minimal scattered chronic-appearing interstitial changes are identified including trace right medial apical of and left basilar scarring. No consolidation, significant nodule, or mass lesion. Previously noted scattered infiltrates have resolved. No effusion. No pneumothorax. Tracheobronchial tree is patent. The mediastinum demonstrates normal thoracic aorta, pulmonary vasculature and heart/pericardium. Pacemaker identified. Musculoskeletal structures demonstrate age-related degenerative change without focal osseous abnormality. Impression: Minimal scattered chronic changes. No acute mediastinal or pleuroparenchymal process. Previously identified adenopathy and infiltrates have resolved. Electronically Signed by Charbel Celestin MD 11/26/2018 07:34 A
== END ==
LOC: M RAD 14:41
PROVIDERS: ATTEND Physician Assistant
DX: R91.8 Other nonspecific abnormal finding of lung field (principal)
CPT/HCPCS: 71260; Q9967

== ENCOUNTER → 2018-12-24 | Outpatient (CLI) | payer OTHER ==
[~2018-12-24] MED LIST changes: -ISOVUE-370 76% 100ML VIAL (Q9967) As Ordered ONE
--- NOTE | 2018-12-27 22:27 | SLEEPCENT ---
DATE OF PROCEDURE: 12/24/2018 ORDERED BY: Dr. Banuelos Nocturnal polysomnography was performed for titration of pressure therapy in this patient with severe obstructive sleep apnea syndrome. For testing a ResMed Quattro full face mask of large size was used. An initial bilevel pressure of 18 inspiratory, 14 expiratory was applied to the circuit and the lights were extinguished. 6 hours and 34 minutes of data were reviewed. There were 330.5 minutes of sleep identified. Sleep latency was mildly prolonged at 17 minutes. Rapid eye movement (REM) latency mildly prolonged at 123 minutes. Sleep architecture was fairly good. There were three REM cycles noted. Overall sleep efficiency was 85.8%. The patient's electrocardiogram showed a sinus rhythm with premature ventricular contractions (PVCs), small complexes, average heart rate 80 beats per minute. EEG showed reasonably normal waveforms for awake and sleep. Respiratory events were fully palliated with bilevel pressure therapy inspiratory 19 over expiratory 15. Some limb activity was also appreciated. However, limb movement arousal index was only 6.3. IMPRESSION: Obstructive sleep apnea syndrome (G47.33). RECOMMENDATIONS: Nightly use of bilevel pressure therapy inspiratory 19 over expiratory 15.
== END ==
LOC: M SLEEP 20:00
PROVIDERS: ATTEND Physician Assistant
DX: G47.33 Obstructive sleep apnea (adult) (pediatric) (principal)

== ENCOUNTER → 2019-01-12 | Outpatient (CLI) | payer OTHER ==
[2019-01-12 14:24] LABS: HEMOGLOBIN A1c 7.3 %
[2019-01-12 14:38] LABS: ALBUMIN 3.9 GM/DL (3.2-5.2); BILIRUBIN,DIRECT 0.2 MG/DL (0.0-0.2); BILIRUBIN,TOTAL 0.7 MG/DL (0.2-1.0); CALCIUM LEVEL 8.9 MG/DL (8.5-10.1); CHOLESTEROL RISK RATIO 3.906 (<5); CREATININE FOR GFR 1.52 MG/DL (0.70-1.30); GLOMERULAR FILTRATION RATE 50.6 (>56); POTASSIUM SERUM 3.6 MEQ/L (3.5-5.1); TOTAL PROTEIN 6.6 GM/DL (6.4-8.2)
[2019-01-12 14:44] LABS: TOTAL 25(OH) VITAMIN D 48.8 NG/ML (30.0-100.0)
== END ==
LOC: M LAB 13:41
PROVIDERS: ATTEND Obstetrics & Gynecology
DX: I10 Essential (primary) hypertension (principal); E11.9 Type 2 diabetes mellitus without complications; E55.9 Vitamin D deficiency, unspecified; K76.89 Other specified diseases of liver; E78.5 Hyperlipidemia, unspecified

== ENCOUNTER → 2019-01-19 | Outpatient (CLI) | payer OTHER ==
--- NOTE | 2019-01-19 11:06 | REP ---
ABDOMINAL ULTRASOUND: Real-time sonographic evaluation of abdomen performed. Gallbladder demonstrates no evidence of intraluminal sludge or calculi, wall thickening, or pericholecystic fluid. There is no intrahepatic or extrahepatic biliary dilatation, common bile duct measuring 6 mm. Liver demonstrates increased echotexture diffusely, suggesting diffuse fibrofatty infiltration. There appears to be a cyst in the superior aspect of the right lobe of the liver 9 mm in diameter. Visualized pancreas is grossly unremarkable. Spleen is enlarged measuring 16.8 x 13.2 x 6.0 cm. No intrinsic abnormality is seen. Kidneys are normal in size and echotexture, right kidney measuring 11.5 x 6.3 x 5.3 cm and left kidney 11.4 x 6.0 x 6.2 cm. There is no hydronephrosis bilaterally. Right renal cyst laterally measures 1.1 cm in diameter. Suspected cortical lobulations are seen of the left kidney with an exophytic nodule 1.6 cm in diameter, which was previously shown to represent a hyperdense cyst on the CT of 08/08/2017. Diameter at that time was 2 cm. Abdominal aorta could not be visualized due to overlying bowel gas. No ascites is seen. Please note the study is very limited due to patient body habitus and bowel gas. IMPRESSION: Diffuse fibrofatty infiltration of the liver. 9 mm cyst right lobe of liver superiorly. Moderate splenomegaly. Right renal cyst. Left kidney demonstrates cortical lobulations with an exophytic hypoechoic nodule 1.6 cm in diameter, previously shown to represent a hyperdense cyst on the CT of 08/08/2017. No gross new renal abnormalities, although the study is quite limited due to patient body habitus and bowel gas. Electronically Signed by Brandon Zimmerman MD 01/19/2019 04:22 P
== END ==
LOC: M RAD 07:51
PROVIDERS: ATTEND Obstetrics & Gynecology
DX: K76.89 Other specified diseases of liver (principal); N28.89 Other specified disorders of kidney and ureter

== ENCOUNTER 2019-02-02 09:55 | Emergency (ER) | payer OTHER ==
[~2019-02-02] VITALS: Ht 185.4 cm; Wt 134.1 kg
[2019-02-02 11:14] LABS: C REACTIVE PROTEIN QUANTITATIV 7.78 MG/DL (0.00-0.30)
--- NOTE | 2019-02-02 11:30 | REP ---
LEFT FOOT: Four views. HISTORY: Left foot pain. History of gout. Comparison left foot radiographs are from October 28, 2018. FINDINGS: There is no established Achilles and plantar calcaneal spurring again noted. Old post-traumatic deformity is seen at the base of the proximal phalanx of the 5th toe. Overall mineralization pattern is normal. No soft tissue calcification or gas is seen. No acute erosive change is seen. IMPRESSION: No evidence of erosive arthropathy seen. Old post-traumatic deformity of the 5th proximal phalanx. Fairly prominent heel spurs. Electronically Signed by Duke Skelton MD 02/02/2019 11:48 A
[2019-02-02 11:46] VITALS: BP 134/56
[2019-02-02] MEDS ORDERED: PRED10TA2 PO (11:55)
== END 2019-02-02 12:32 | disposition home or self-care (01) ==
LOC: M ED 09:55
DX: M10.9 Gout, unspecified (principal); M77.32 Calcaneal spur, left foot; M79.672 Pain in left foot; I50.9 Heart failure, unspecified; E11.9 Type 2 diabetes mellitus without complications; I10 Essential (primary) hypertension; E78.5 Hyperlipidemia, unspecified; J44.9 Chronic obstructive pulmonary disease, unspecified; G89.29 Other chronic pain; M54.9 Dorsalgia, unspecified; G47.30 Sleep apnea, unspecified; Z95.0 Presence of cardiac pacemaker; Z72.0 Tobacco use; F12.10 Cannabis abuse, uncomplicated; Z87.81 Personal history of (healed) traumatic fracture; Z79.82 Long term (current) use of aspirin; Z79.84 Long term (current) use of oral hypoglycemic drugs; Z79.899 Other long term (current) drug therapy

== ENCOUNTER → 2019-02-28 | Outpatient (REF) | payer OTHER ==
[~2019-02-28] MED LIST changes: -LISI20TA; -LISI20TA PO; +LISI20TA18; +LISI20TA18 PO
== END ==
LOC: M SFHCPLAZ 10:35
DX: Z53.9 Procedure and treatment not carried out, unspecified reason (principal); E11.9 Type 2 diabetes mellitus without complications

== ENCOUNTER → 2019-03-26 | Outpatient (CLI) | payer OTHER ==
[~2019-03-26] MED LIST changes: -LISI20TA18; -LISI20TA18 PO; +LISI20TA19; +LISI20TA19 PO; +METF-791 PO; -METF500T4 PO
--- NOTE | 2019-03-26 17:58 | REP ---
Clinical: Contusion. Technique: AP, lateral, bilateral oblique views of the right third digit. Findings: Mild osteoarthritic degenerative changes at the proximal interphalangeal joint and distal interphalangeal joint noted without evidence for acute fracture or dislocation. Lateral view demonstrates significant focal swelling overlying the PIP joint. No subcutaneous emphysema or foreign body identified. Impression: Soft tissue swelling centered at the PIP joint. Electronically Signed by Charbel Celestin MD 03/26/2019 05:50 P
== END ==
LOC: M WUC 17:39
PROVIDERS: ATTEND Physician Assistant
DX: S60.031A Contusion of right middle finger without damage to nail, initial encounter (principal); M79.89 Other specified soft tissue disorders; X58.XXXA Exposure to other specified factors, initial encounter; Y92.9 Unspecified place or not applicable

== ENCOUNTER 2019-04-07 23:46 | Emergency (ER) | payer OTHER ==
[~2019-04-07] VITALS: Ht 185.4 cm; Wt 136.4 kg
[2019-04-08] MEDS: IPRATROPIUM 0.5MG/ALBUTEROL 2.5MG INH SOL UD 3ML (DUONEB)(J7620) NEB SCH ×2 (00:13→00:28)
[2019-04-08] MEDS ORDERED: FUROSEMIDE 100 MG/10 ML VIAL (J1940) IV ONE (00:15)
[2019-04-08] MEDS ORDERED: dexameTHASONE 20 MG/5 ML VIAL (J1100) IV ONE (00:15)
[2019-04-08 00:36] LABS: BASO # 0.1 10^3/uL (0.0-0.2); BASO % 0.5 % (0.0-1.0); EOS # 0.3 10^3/uL (0.0-0.5); EOS % 2.2 % (0.0-3.0); HEMATOCRIT 44.6 % (42.0-52.0); HEMOGLOBIN 15.2 g/dl (13.5-17.5); LYMPH # 1.8 10^3/uL (1.5-5.0); LYMPH % 11.5 % (24.0-44.0); MEAN CORPUSCULAR HEMOGLOBIN 32.1 pg (27.0-33.0); MEAN CORPUSCULAR HGB CONC 34.1 g/dl (32.0-36.5); MEAN CORPUSCULAR VOLUME 94.3 fl (80.0-96.0); MONO # 1.3 10^3/uL (0.0-0.8); MONO % 8.8 % (0.0-5.0); NEUTROPHILS # 11.6 10^3/uL (1.5-8.5); NEUTROPHILS % 76.4 % (36.0-66.0); PLATELET COUNT, AUTOMATED 141 10^3/uL (150-450); RED BLOOD COUNT 4.73 10^6/uL (4.30-6.10); WHITE BLOOD COUNT 15.2 10^3/uL (4.0-10.0)
[2019-04-08 01:00] VITALS: BP_DIAS 60
[2019-04-08 01:01] LABS: BLOOD UREA NITROGEN 33 MG/DL (7-18); CALCIUM LEVEL 8.9 MG/DL (8.5-10.1); CARBON DIOXIDE LEVEL 31 MEQ/L (21-32); CHLORIDE LEVEL 101 MEQ/L (98-107); CK-MB VALUE MASS 1.2 NG/ML (<3.6); CPK CREATINE PHOSPHOKINASE 75 U/L (39-308); CREATININE FOR GFR 1.16 MG/DL (0.70-1.30); GLOMERULAR FILTRATION RATE > 60.0 (>56); GLUCOSE, FASTING 174 MG/DL (70-100); NT-PRO BNP 33 PG/ML (<125); POTASSIUM SERUM 4.3 MEQ/L (3.5-5.1); SODIUM LEVEL 140 MEQ/L (136-145); TROPONIN I < 0.02 NG/ML (< 0.10)
--- NOTE | 2019-04-08 01:13 | REP ---
Clinical: Dyspnea. Technique: Single portable chest x-ray Comparison: 10/28/2018. Findings: Pacemaker in stable position. Cardiac silhouette is within normal limits and stable. Lung monsalve demonstrate chronic-appearing interstitial changes. No focal consolidation, obvious effusion, or pneumothorax. Skeletal structures intact. Impression: Chronic-appearing stable changes. Electronically Signed by Charbel Celestin MD 04/08/2019 01:04 A
[2019-04-08] MEDS ORDERED: PRED20TA PO (01:38)
[2019-04-08 01:55] VITALS: BP_SYST 139
--- NOTE | 2019-04-08 06:29 | ECGEPIP ---
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
== END 2019-04-08 01:56 | disposition home or self-care (01) ==
LOC: M ED 23:46
DX: J44.1 Chronic obstructive pulmonary disease with (acute) exacerbation (principal); E11.9 Type 2 diabetes mellitus without complications; F17.200 Nicotine dependence, unspecified, uncomplicated; I10 Essential (primary) hypertension; K21.9 Gastro-esophageal reflux disease without esophagitis; Z79.51 Long term (current) use of inhaled steroids; Z79.82 Long term (current) use of aspirin; Z79.899 Other long term (current) drug therapy; Z95.0 Presence of cardiac pacemaker; Z99.81 Dependence on supplemental oxygen
CPT/HCPCS: 71045; 80048; 82550; 82553; 83880; 85025; 87040; 93005; 94640; 96374; 96375; 99284; J1100; J1940

== ENCOUNTER → 2019-04-10 | Outpatient (CLI) | payer OTHER ==
[~2019-04-10] MED LIST changes: +PRED20TA PO
[2019-04-10 13:01] LABS: HEMOGLOBIN A1c 8.5 %
== END ==
LOC: M LAB 12:15
PROVIDERS: ATTEND Obstetrics & Gynecology
DX: E11.9 Type 2 diabetes mellitus without complications (principal)

== ENCOUNTER → 2019-04-11 | Outpatient (CLI) | payer OTHER ==
--- NOTE | 2019-04-11 15:47 | REP ---
PA and lateral chest three views including two PA and single lateral projections: Comparisons are 10/28/2018 and 04/08/2019. The lung monsalve are chronically hyperinflated, unchanged from the comparison studies. Lung monsalve otherwise clear. Cardiac size is normal. The karla, mediastinum, skeletal structures are unremarkable. There is a triple lead biventricular pacemaker, unchanged. Impression: There are no acute cardiopulmonary findings. Pacemaker as described. Electronically Signed by Brandon Cedillo MD 04/11/2019 03:38 P
== END ==
LOC: M WUC 14:45
PROVIDERS: ATTEND Obstetrics & Gynecology
DX: R50.9 Fever, unspecified (principal); Z95.0 Presence of cardiac pacemaker

== ENCOUNTER → 2019-05-29 | Outpatient (CLI) | payer OTHER ==
[~2019-05-29] MED LIST changes: +SENN-53 PO; -SENN1TAB40 PO
[2019-05-29 13:06] LABS: BLOOD UREA NITROGEN 13 MG/DL (7-18); CALCIUM LEVEL 8.6 MG/DL (8.5-10.1); CARBON DIOXIDE LEVEL 33 MEQ/L (21-32); CHLORIDE LEVEL 104 MEQ/L (98-107); CREATININE FOR GFR 1.13 MG/DL (0.70-1.30); GLOMERULAR FILTRATION RATE > 60.0 (>56); GLUCOSE, FASTING 221 MG/DL (70-100); POTASSIUM SERUM 3.6 MEQ/L (3.5-5.1); SODIUM LEVEL 143 MEQ/L (136-145)
[2019-05-29 13:17] LABS: CREATININE, URINE < 13.0 MG/DL; MALB URINE SIEMENS < 5.0 MG/L
== END ==
LOC: M LAB 12:02
PROVIDERS: ATTEND Obstetrics & Gynecology
DX: E11.9 Type 2 diabetes mellitus without complications (principal); I10 Essential (primary) hypertension

== ENCOUNTER → 2019-11-24 | Outpatient (CLI) | payer OTHER ==
[~2019-11-24] MED LIST changes: -METF-791 PO; +METF-838 PO; -MONT10TA2; +MONT10TA4
--- NOTE | 2019-11-25 06:00 | REP ---
Clinical: Lung screening. History smoking. Comparison: 11/24/2018, 08/05/2017 Technique: Axial low-dose noncontrast images from the thoracic inlet to the upper abdomen using lung screening technique. Findings: The lung monsalve are well-aerated. No consolidation, significant nodule or mass lesion is appreciated. No pleural effusion/reaction or pneumothorax. Tracheobronchial tree is patent. Mediastinum demonstrates mild atherosclerotic changes of the coronary arteries without cardiomegaly. Impression: Lung-RADS category I. No nodule or suspicious abnormality. Management recommendations include annual low-dose follow-up examination. Electronically Signed by Charbel Celestin MD 11/25/2019 05:51 A
== END ==
LOC: M RAD 13:43
PROVIDERS: ATTEND Physician Assistant
DX: Z87.891 Personal history of nicotine dependence (principal)

== ENCOUNTER → 2019-12-30 | Outpatient (REF) | payer OTHER ==
[2019-12-30 17:30] LABS: CALCIUM LEVEL 9.3 MG/DL (8.5-10.1); CHOLESTEROL RISK RATIO 4.696 (<5); CREATININE FOR GFR 1.32 MG/DL (0.70-1.30); GLOMERULAR FILTRATION RATE 59.3 (>56); POTASSIUM SERUM 4.4 MEQ/L (3.5-5.1); TOTAL 25(OH) VITAMIN D 17.6 NG/ML (30.0-100.0)
[2019-12-30 17:36] LABS: CREATININE, URINE 52.5 MG/DL; MALB URINE SIEMENS < 5.0 MG/L; MAU/CREAT RATIO 9.5 MCG/MG (0.0-30.0)
[2019-12-30 17:52] LABS: HEMOGLOBIN A1c 7.4 %
== END ==
LOC: M SFHCPLAZ 15:09
DX: E11.69 Type 2 diabetes mellitus with other specified complication (principal); I10 Essential (primary) hypertension; E78.5 Hyperlipidemia, unspecified; E55.9 Vitamin D deficiency, unspecified

== ENCOUNTER → 2020-02-13 | Outpatient (CLI) | payer OTHER ==
[~2020-02-13] MED LIST changes: -LISI20TA19; -LISI20TA19 PO; +LISI20TA35; +LISI20TA35 PO
--- NOTE | 2020-04-17 09:44 | REP ---
ABDOMINAL ULTRASOUND HISTORY: Right renal cyst, liver cyst. COMPARISON: 01/19/2019. TECHNIQUE: Real-time sonographic evaluation of abdomen performed. FINDINGS: Gallbladder no evidence of intraluminal sludge or calculi, wall thickening, or pericholecystic fluid. There is no intrahepatic or extrahepatic biliary dilatation. Common bile duct measuring 5 mm. Liver again demonstrates diffuse increased echotexture heterogeneously, consistent with diffuse fibrofatty infiltration. There is mild enlargement of the liver with a length of approximately 21 cm. No gross liver mass is seen. The previously noted cyst in the posterior right lobe of the liver is not visualized on todays exam. Pancreas is not well seen due to overlying bowel gas. Spleen is [id number] enlarged measuring 15.8 x 12.2 x 5.8 cm with a splenic index of 1118. Kidneys are of normal size and echotexture. Right kidney measuring 1.2 x 4.8 x 4.2 cm and left kidney 11.4 x 4.6 x 4.0 cm. No hydronephrosis is visualized. The previously noted hyperdense cyst of the left kidney is not seen on todays exam. Previously, it measured 1.6 cm and was shown to represent a hyperdense cyst on the CT of 08/08/2017. Abdominal aorta could not be visualized due to overlying bowel gas. There is no ascites. IMPRESSION: Limited examination due to patient body habitus and bowel gas. Diffuse fibrofatty infiltration of the liver with hepatomegaly and splenomegaly. Previously noted liver cyst and hyperdense left renal cyst are not visualized on todays exam. [facility]
== END ==
LOC: M RAD 08:00
PROVIDERS: ATTEND Obstetrics & Gynecology
DX: K76.89 Other specified diseases of liver (principal); N28.1 Cyst of kidney, acquired; K76.0 Fatty (change of) liver, not elsewhere classified; R16.2 Hepatomegaly with splenomegaly, not elsewhere classified

== ENCOUNTER → 2020-06-06 | Outpatient (REF) | payer OTHER | LOC: M SFHCPLAZ 11:25 | PROVIDERS: ATTEND Family Medicine | DX: E55.9 Vitamin D deficiency, unspecified (principal) ==

== ENCOUNTER → 2020-06-25 | Outpatient (CLI) | payer OTHER ==
[~2020-06-25] MED LIST changes: +COLC0.6T47 PO; -COLC1TAB13 PO; -MONT10TA4; +MONT5TAB2
== END ==
LOC: M LAB 15:02
PROVIDERS: ATTEND Student in an Organized Health Care Education/Training Program
DX: E55.9 Vitamin D deficiency, unspecified (principal)

== ENCOUNTER → 2020-08-13 | Outpatient (REF) | payer OTHER ==
[~2020-08-13] MED LIST changes: -LISI-542 PO; +LISI-898 PO; +LISI10TA22 PO; -LISI10TA4 PO; +MONT10TA10; -MONT5TAB2
[2020-08-13 15:46] LABS: HEMATOCRIT 53.1 % (42.0-52.0); HEMOGLOBIN 17.9 g/dl (13.5-17.5); MEAN CORPUSCULAR HEMOGLOBIN 30.9 pg (27.0-33.0); MEAN CORPUSCULAR HGB CONC 33.7 g/dl (32.0-36.5); MEAN CORPUSCULAR VOLUME 91.6 fl (80.0-96.0); PLATELET COUNT, AUTOMATED 164 10^3/uL (150-450); WHITE BLOOD COUNT 9.6 10^3/uL (4.0-10.0)
[2020-08-13 16:20] LABS: ALT/SGPT 44 U/L (12-78); BILIRUBIN,TOTAL 0.7 MG/DL (0.2-1.0); BLOOD UREA NITROGEN 28 MG/DL (7-18); CALCIUM LEVEL 9.4 MG/DL (8.5-10.1); CARBON DIOXIDE LEVEL 27 MEQ/L (21-32); CHLORIDE LEVEL 99 MEQ/L (98-107); FERRITIN 167 NG/ML (26-388); GLOMERULAR FILTRATION RATE > 60.0 (>56); GLUCOSE, FASTING 299 MG/DL (70-100); IRON (FE) 162 UG/DL (65-175); PERCENT SATURATION 41.3 % (19.7-50.0); POTASSIUM SERUM 4.4 MEQ/L (3.5-5.1); SODIUM LEVEL 134 MEQ/L (136-145); TOTAL IRON BINDING CAPACITY 392 UG/DL (250-450); TOTAL PROTEIN 6.6 GM/DL (6.4-8.2)
[2020-08-13 16:25] LABS: HEPATITIS B SURFACE ANTIBODY NEGATIVE (POSITIVE)
[2020-08-13 16:35] LABS: HEPATITIS B SURFACE ANTIGEN NEGATIVE (NEGATIVE)
[2020-08-13 17:03] LABS: HEPATITIS C VIRUS ABY INDEX < 0.0 INDEX (<0.8)
[2020-08-15 17:11] LABS: ALPHA 1 ANTITRYPSIN 129 mg/dL (101-187); ANTI DOUBLE STRAND-DNA AB <1 IU/mL (0-9); ANTI-SMOOTH MUSCLE ANTIBODY 6 Units (0-19); ANTINUCLEAR ANTIBODIES DIRECT Positive (Negative); HEPATITIS A IgG TOTAL Negative (Negative); HEPATITIS B CORE ANTIBODY IGG Negative (Negative); SJOGREN'S ANTI SS-A <0.2 AI (0.0-0.9); SJOGREN'S ANTI SS-B <0.2 AI (0.0-0.9); SMITH ANTIBODIES <0.2 AI (0.0-0.9)
== END ==
LOC: M SFHCPLAZ 13:30
PROVIDERS: ATTEND Family Medicine
DX: K76.0 Fatty (change of) liver, not elsewhere classified (principal)

== ENCOUNTER → 2020-08-27 | Outpatient (CLI) | payer OTHER ==
--- NOTE | 2020-08-27 14:50 | REP ---
INDICATION: NONALCOHOLIC FATTY LIVER DX/K76.0 COMPARISON: 02/13/2020 TECHNIQUE: Real time guzman scale ultrasound examination using curved array transducer. FINDINGS: Liver is enlarged measuring 21 cm in craniocaudal length and hyperechoic consistent with fatty infiltration. No focal hepatic lesion identified. Pancreas is incompletely evaluated due to interposed bowel gas. The gallbladder is normal and without gallstones, wall thickening, or pericholecystic fluid. No biliary ductal dilatation is appreciated and the common bile duct measures 5.8 mm diameter. Right kidney is normal in reniform shape without hydronephrosis and measures 11.0 x 6.1 x 4.4 cm. No ascites in the visualized right upper quadrant. IMPRESSION: Hepatomegaly and hepatosteatosis. <Electronically signed by Charbel Celestin > 08/27/20 [id number]
== END ==
LOC: M WHC 08:20
PROVIDERS: ATTEND Student in an Organized Health Care Education/Training Program
DX: K76.0 Fatty (change of) liver, not elsewhere classified (principal)

== ENCOUNTER → 2020-08-27 | Outpatient (REF) | payer OTHER ==
[2020-08-27 18:22] LABS: CALCIUM LEVEL 9.7 MG/DL (8.5-10.1); CREATININE FOR GFR 1.59 MG/DL (0.70-1.30); GLOMERULAR FILTRATION RATE 47.7 (>56); POTASSIUM SERUM 4.6 MEQ/L (3.5-5.1)
[2020-08-27 20:38] LABS: HEMOGLOBIN A1c 8.6 %
== END ==
LOC: M PLALAB 14:36
PROVIDERS: ATTEND Student in an Organized Health Care Education/Training Program
DX: E11.69 Type 2 diabetes mellitus with other specified complication (principal)

== ENCOUNTER → 2020-11-28 | Outpatient (CLI) | payer OTHER ==
[~2020-11-28] MED LIST changes: +ASPI-569 PO; -ASPI81TAEC PO
--- NOTE | 2020-11-29 04:31 | REP ---
INDICATION: LUNG SCREENING COMPARISON: 11/24/2019, 11/24/2018, 08/05/2017 TECHNIQUE: Axial noncontrast images from the thoracic inlet to the upper abdomen using low-dose lung screening technique (LDCT). FINDINGS: The lung monsalve again demonstrate mild chronic interstitial changes. There is a new small somewhat linear/triangular perifissural density at the superior aspect of the left major fissure (image 12) which represents a new finding but likely scarring. No acute consolidation, new suspicious nodule, or mass. No effusion. No pneumothorax. Tracheobronchial tree is patent. IMPRESSION: 1. Lung-RADS category 2. Relatively stable chronic changes. New small presumed chronic perifissural opacity at the apical margin of the left major fissure. 2. Management recommendations include annual low-dose CT surveillance. <Electronically signed by Charbel Celestin > 11/29/20 0427
== END ==
LOC: M RAD 11:15
PROVIDERS: ATTEND Physician Assistant
DX: Z12.2 Encounter for screening for malignant neoplasm of respiratory organs (principal); Z87.891 Personal history of nicotine dependence

== ENCOUNTER → 2020-12-13 | Outpatient (CLI) | payer OTHER ==
[2020-12-13 14:00] LABS: BLOOD UREA NITROGEN 28 MG/DL (7-18); CALCIUM LEVEL 9.2 MG/DL (8.5-10.1); CARBON DIOXIDE LEVEL 30 MEQ/L (21-32); CHLORIDE LEVEL 101 MEQ/L (98-107); CREATININE FOR GFR 1.22 MG/DL (0.70-1.30); GLOMERULAR FILTRATION RATE > 60.0 (>56); GLUCOSE, FASTING 260 MG/DL (70-100); POTASSIUM SERUM 5.1 MEQ/L (3.5-5.1); SODIUM LEVEL 135 MEQ/L (136-145)
[2020-12-13 14:04] LABS: HEMOGLOBIN A1c 10.8 %
== END ==
LOC: M LAB 12:26
PROVIDERS: ATTEND Student in an Organized Health Care Education/Training Program
DX: E11.9 Type 2 diabetes mellitus without complications (principal)

== ENCOUNTER → 2020-12-25 | Outpatient (REF) | payer OTHER | LOC: M SFHCPLAZ 14:49 | PROVIDERS: ATTEND Family Medicine | DX: E11.69 Type 2 diabetes mellitus with other specified complication (principal); E78.5 Hyperlipidemia, unspecified; Z53.9 Procedure and treatment not carried out, unspecified reason ==

== ENCOUNTER → 2021-02-04 | Outpatient (REF) | payer OTHER | LOC: M SFHCPLAZ 14:43 | PROVIDERS: ATTEND Family Medicine | DX: E11.69 Type 2 diabetes mellitus with other specified complication (principal) ==

== ENCOUNTER → 2021-04-10 | Outpatient (CLI) | payer OTHER ==
[2021-04-10 17:54] LABS: CHOLESTEROL RISK RATIO 4.1 (<5)
== END ==
LOC: M LAB 16:41
PROVIDERS: ATTEND Internal Medicine Cardiovascular Disease
DX: I42.9 Cardiomyopathy, unspecified (principal); E11.9 Type 2 diabetes mellitus without complications; E78.5 Hyperlipidemia, unspecified; I10 Essential (primary) hypertension

== ENCOUNTER → 2021-04-10 | Outpatient (CLI) | payer OTHER ==
[2021-04-10 17:54] LABS: ALBUMIN 3.9 GM/DL (3.2-5.2); ALT/SGPT 44 U/L (12-78); BILIRUBIN,TOTAL 0.6 MG/DL (0.2-1.0); BLOOD UREA NITROGEN 22 MG/DL (7-18); CALCIUM LEVEL 9.2 MG/DL (8.5-10.1); CARBON DIOXIDE LEVEL 31 MEQ/L (21-32); CHLORIDE LEVEL 100 MEQ/L (98-107); CREATININE FOR GFR 1.23 MG/DL (0.70-1.30); GLOMERULAR FILTRATION RATE > 60.0 (>56); GLUCOSE, FASTING 238 MG/DL (70-100); POTASSIUM SERUM 4.3 MEQ/L (3.5-5.1); SODIUM LEVEL 137 MEQ/L (136-145); TOTAL PROTEIN 6.7 GM/DL (6.4-8.2)
[2021-04-10 18:03] LABS: CREATININE, URINE 28.9 MG/DL; MALB URINE SIEMENS < 5.0 MG/L; MAU/CREAT RATIO 17.3 MCG/MG (0.0-30.0)
== END ==
LOC: M LAB 16:38
PROVIDERS: ATTEND Student in an Organized Health Care Education/Training Program
DX: E11.69 Type 2 diabetes mellitus with other specified complication (principal)

== ENCOUNTER → 2021-06-03 | Outpatient (REF) | payer OTHER ==
[2021-06-04 11:20] LABS: APPEARANCE, URINE CLEAR (CLEAR); BACTERIA, URINE AUTO NEGATIVE (NEGATIVE); BILIRUBIN, URINE AUTO NEGATIVE (NEGATIVE); BLOOD, URINE BLOOD NEGATIVE (NEGATIVE); COLOR, URINE STRAW (YELLOW); GLUCOSE, URINE (UA) AUTO 3+ mg/dL (NEGATIVE); KETONE, URINE AUTO NEGATIVE (NEGATIVE); LEUKOCYTE ESTERASE, URINE AUTO NEGATIVE (NEGATIVE); MUCUS, URINE SMALL (NEGATIVE); NITRITE, URINE AUTO NEGATIVE (NEGATIVE); PROTEIN, URINE AUTO NEGATIVE (NEGATIVE); RBC, URINE AUTO 0 /HPF (0-3); SPECIFIC GRAVITY URINE AUTO 1.015 (1.002-1.035); SQUAMOUS EPITHELIAL CELL UR AU 1 /HPF (0-6); UROBILINOGEN, URINE AUTO 0.2 mg/dL (0.0-2.0); WBC, URINE AUTO 0 /HPF (0-3)
[2021-06-04 12:11] LABS: GC DNA AMPLIFICATION NEGATIVE (NEGATIVE)
== END ==
LOC: M SFHCPLAZ 10:04
PROVIDERS: ATTEND Student in an Organized Health Care Education/Training Program
DX: N48.1 Balanitis (principal)

== ENCOUNTER 2021-06-22 02:21 | Inpatient (IN) | payer OTHER ==
[2021-06-22] VITALS (9 sets, daily range): BP systolic 115–143; BP diastolic 73–80; O2SAT 92–97
[~2021-06-22] VITALS: Ht 185.4 cm; Wt 125.3 kg
[~2021-06-22 02:21] MED LIST changes: -CARV3.12; +CARV3.12 PO; -FLUT1INH3; +FLUT1INH3 INH; -INCR1INH; +INCR1INH INH; -LISI-898 PO; +LISI5TAB11 PO; -MONT10TA10; +MONT10TA97 PO
[2021-06-22] MEDS ORDERED: LEVALBUTEROL 1.25 MG/0.5 ML CONCENTRATE NEB NEB ONE ×2 (02:35)
[2021-06-22] MEDS ORDERED: ACETAMINOPHEN 325 MG TAB PO ONE (02:45)
[2021-06-22] MEDS ORDERED: NS 1,000 ML IV ONE (02:45)
[2021-06-22 02:55] LABS: ABG BASE EXCESS 3.1 (-2.0-2.0); ABG HCO3 26.9 MEQ/L (22.0-26.0); ABG O2 SATURATION 96.2 % (95.0-99.0); ABG PARTIAL PRESSURE CO2 38.4 mmHg (35.0-45.0); ABG PARTIAL PRESSURE O2 76.4 mmHg (75.0-100.0); ABG STANDARD HCO3 27.2 MEQ/L (22.0-26.0); ABG TOTAL CO2 28.1 MEQ/L (23.0-31.0); ABG pH (ARTERIAL) 7.463 UNITS (7.350-7.450)
[2021-06-22 03:04] LABS: BASO % 0.4 % (0.0-1.0); HEMATOCRIT 49.8 % (42.0-52.0); LYMPH # 0.5 10^3/uL (1.5-5.0); LYMPH % 7.5 % (24.0-44.0); MEAN CORPUSCULAR HEMOGLOBIN 29.9 pg (27.0-33.0); MEAN CORPUSCULAR HGB CONC 34.1 g/dl (32.0-36.5); MEAN CORPUSCULAR VOLUME 87.7 fl (80.0-96.0); MONO # 0.5 10^3/uL (0.0-0.8); MONO % 7.6 % (2.0-8.0); NEUTROPHILS # 5.5 10^3/uL (1.5-8.5); PLATELET COUNT, AUTOMATED 101 10^3/uL (150-450); RED BLOOD COUNT 5.68 10^6/uL (4.30-6.10); WHITE BLOOD COUNT 6.7 10^3/uL (4.0-10.0)
[2021-06-22 03:22] LABS: ALBUMIN 3.3 GM/DL (3.2-5.2); BILIRUBIN,TOTAL 0.7 MG/DL (0.2-1.0); CALCIUM LEVEL 8.1 MG/DL (8.8-10.2); CREATININE FOR GFR 1.34 MG/DL (0.70-1.30); GLOMERULAR FILTRATION RATE 57.9 (>49); MAGNESIUM LEVEL 1.9 MG/DL (1.8-2.4); POTASSIUM SERUM 4.5 MEQ/L (3.5-5.1); TOTAL PROTEIN 6.5 GM/DL (6.4-8.2)
[2021-06-22 03:42] LABS: RSV AMPLIFICATION NEGATIVE (NEGATIVE)
[2021-06-22] MEDS ORDERED: AZITHROMYCIN INJ 500 MG, VIAL MATE ADAPTER 1 EACH in NS 250 ML IV ONE (04:30)
[2021-06-22] MEDS ORDERED: VANCOMYCIN HCL 1,000 MG, VIAL MATE ADAPTER 1 EACH in NS 250 ML IV ONE (04:30)
[2021-06-22] MEDS ORDERED: PIPERACILLIN/TAZOBACTAM SOD 4.5 GM in D5W MINI-BAG PLUS 50 ML IV ONE (04:30)
[2021-06-22] MEDS ORDERED: GLUCAGON INJ 1MG VIAL SC PRN (04:45)
[2021-06-22] MEDS ORDERED: NS 1,000 ML IV SCH (04:45)
[2021-06-22] MEDS ORDERED: guaiFENesin ER 600 MG TAB PO PRN (04:45)
[2021-06-22] MEDS ORDERED: DEXTROSE 50% 50 ML SYRINGE IV PRN (04:45)
[2021-06-22] MEDS ORDERED: GLUCOSE 4GM CHEW TABLET PO PRN (04:45)
[2021-06-22] MEDS ORDERED: ISOVUE-370 76% 100ML VIAL As Ordered ONE (04:47)
[2021-06-22] MEDS ORDERED: MITI1CAP PO (05:12)
[2021-06-22] MEDS ORDERED: ATOR40TA75 PO (05:12)
[2021-06-22] MEDS ORDERED: LISI2.5T9 PO (05:12)
[2021-06-22] MEDS ORDERED: COMBAER6 INH (05:12)
[2021-06-22] MEDS ORDERED: VITA200016 PO (05:12)
[2021-06-22] MEDS ORDERED: TORS10TA3 PO (05:12)
[2021-06-22] MEDS ORDERED: METF-877 PO (05:12)
[2021-06-22] MEDS ORDERED: LATA0.0015 OU (05:12)
[2021-06-22] MEDS ORDERED: STEG15TA PO (05:12)
[2021-06-22] MEDS ORDERED: NESI25TA PO (05:12)
[2021-06-22] MEDS ORDERED: PRED20TA PO (05:14)
[2021-06-22] MEDS ORDERED: DOXY-443 PO (05:16)
[2021-06-22] MEDS ORDERED: HOME MED LIST COMPLETE! XX SCH (05:20)
[2021-06-22] MEDS: HEPARIN SOD (PORCINE) 5000UNITS/ML 1ML VIAL/SYRINGE SC SCH ×3 (07:29→21:56)
[2021-06-22] MEDS: ACETAMINOPHEN TAB 650MG DOSE (2X325MG) PO PRN (07:29)
[2021-06-22] MEDS: methylPREDNISolone 40MG 1ML VIAL IV SCH ×2 (07:29→18:12)
[2021-06-22] MEDS: LEVALBUTEROL 1.25 MG/0.5 ML CONCENTRATE NEB NEB SCH ×4 (07:46→18:26)
[2021-06-22] MEDS: HumaLOG INSULIN (NovoLOG) PER UNIT SC SCH ×4 (07:47→21:55)
[2021-06-22] MEDS: IPRATROPIUM 0.02% SOLN 0.5MG 2.5ML NEB NEB SCH ×3 (08:00→18:25)
[2021-06-22] MEDS ORDERED: LEVALBUTEROL 1.25 MG/0.5 ML CONCENTRATE NEB NEB SCH (08:00)
[2021-06-22] MEDS ORDERED: BUDESONIDE 0.5 MG/2 ML INHALATION SUSPENSION INH SCH (08:00)
[2021-06-22] MEDS: LACTOBACILLUS ACIDOPHILUS CAP (BACID) PO SCH (09:00)
[2021-06-22] MEDS: FLUTICASONE PROP 0.05% NASAL SPRAY 16 GM (FLONASE) NARES SCH ×2 (09:00→21:00)
[2021-06-22] MEDS ORDERED: VANCOMYCIN HCL 1,000 MG, VIAL MATE ADAPTER 1 EACH in NS 250 ML IV SCH (10:00)
[2021-06-22] MEDS: PIPERACILLIN/TAZOBACTAM SOD 3.375 GM in D5W MINI-BAG PLUS 50 ML IV SCH ×2 (13:14→18:12)
[2021-06-22] MEDS: VANCOMYCIN HCL 1,000 MG, VIAL MATE ADAPTER 1 EACH in NS 250 ML IV SCH ×2 (14:46→21:54)
[2021-06-22] MEDS: SPIRONOLACTONE 12.5MG PER 1/2 TABLET PO SCH (18:28)
[2021-06-22] MEDS: LISINOPRIL *2.5 MG* TAB PO SCH (18:28)
[2021-06-22] MEDS: TORSEMIDE 10 MG TABLET PO SCH (18:29)
[2021-06-22] MEDS: ADVAIR HFA 230/21MCG INHALER INH SCH (20:00)
[2021-06-22] MEDS: CARVedilol 3.125 MG TAB PO SCH (21:55)
[2021-06-22] MEDS: LATANOPROST 0.005% OPHTH SOLN 2.5 ML OU SCH (21:56)
[2021-06-23] VITALS (9 sets, daily range): BP systolic 103–120; BP diastolic 61–80; O2SAT 90–94
[2021-06-23] MEDS: methylPREDNISolone 40MG 1ML VIAL IV SCH ×3 (00:08→21:11)
[2021-06-23] MEDS: PIPERACILLIN/TAZOBACTAM SOD 3.375 GM in D5W MINI-BAG PLUS 50 ML IV SCH ×4 (00:08→18:05)
[2021-06-23] MEDS: IPRATROPIUM 0.02% SOLN 0.5MG 2.5ML NEB NEB SCH ×4 (01:40→20:38)
[2021-06-23] MEDS: LEVALBUTEROL 1.25 MG/0.5 ML CONCENTRATE NEB NEB SCH ×6 (03:22→20:38)
[2021-06-23] MEDS: ACETAMINOPHEN TAB 650MG DOSE (2X325MG) PO PRN ×2 (03:35→10:22)
[2021-06-23] MEDS: HEPARIN SOD (PORCINE) 5000UNITS/ML 1ML VIAL/SYRINGE SC SCH ×3 (06:08→21:12)
[2021-06-23] MEDS: VANCOMYCIN HCL 1,000 MG, VIAL MATE ADAPTER 1 EACH in NS 250 ML IV SCH ×3 (06:08→21:13)
[2021-06-23 06:29] LABS: BASO % 0.1 % (0.0-1.0); HEMATOCRIT 46.7 % (42.0-52.0); HEMOGLOBIN 15.8 g/dl (13.5-17.5); LYMPH # 0.5 10^3/uL (1.5-5.0); LYMPH % 5.9 % (24.0-44.0); MEAN CORPUSCULAR HEMOGLOBIN 30.2 pg (27.0-33.0); MEAN CORPUSCULAR HGB CONC 33.8 g/dl (32.0-36.5); MEAN CORPUSCULAR VOLUME 89.1 fl (80.0-96.0); MONO # 0.4 10^3/uL (0.0-0.8); MONO % 4.2 % (2.0-8.0); NEUTROPHILS # 8.1 10^3/uL (1.5-8.5); NEUTROPHILS % 89.1 % (36.0-66.0); PLATELET COUNT, AUTOMATED 114 10^3/uL (150-450); RED BLOOD COUNT 5.24 10^6/uL (4.30-6.10)
[2021-06-23 06:56] LABS: CALCIUM LEVEL 8.3 MG/DL (8.8-10.2); CREATININE FOR GFR 1.32 MG/DL (0.70-1.30); GLOMERULAR FILTRATION RATE 58.9 (>49); POTASSIUM SERUM 4.3 MEQ/L (3.5-5.1)
[2021-06-23] MEDS ORDERED: CEFD300C41 PO (08:12)
[2021-06-23] MEDS ORDERED: DOXY-350 PO (08:12)
[2021-06-23] MEDS ORDERED: PRED10TA2 PO (08:12)
[2021-06-23] MEDS ORDERED: CARE1KIT XX (08:19)
[2021-06-23] MEDS ORDERED: [UNRECOGNIZED DRUG - CODE] XX (08:19)
[2021-06-23] MEDS ORDERED: QC A650T3 PO (08:24)
[2021-06-23] MEDS: ADVAIR HFA 230/21MCG INHALER INH SCH ×2 (09:16→20:38)
[2021-06-23] MEDS: HumaLOG INSULIN (NovoLOG) PER UNIT SC SCH ×4 (09:37→21:12)
[2021-06-23] MEDS: LACTOBACILLUS ACIDOPHILUS CAP (BACID) PO SCH (09:43)
[2021-06-23] MEDS: SPIRONOLACTONE 12.5MG PER 1/2 TABLET PO SCH (09:43)
[2021-06-23] MEDS: MONTELUKAST 10 MG TAB PO SCH (09:43)
[2021-06-23] MEDS: TORSEMIDE 10 MG TABLET PO SCH (09:44)
[2021-06-23] MEDS: ASPIRIN 81MG ENTERIC TABLET PO SCH (09:44)
[2021-06-23] MEDS: LISINOPRIL *2.5 MG* TAB PO SCH (09:44)
[2021-06-23] MEDS: CARVedilol 3.125 MG TAB PO SCH ×2 (09:45→21:11)
[2021-06-23] MEDS: ATORVASTATIN 20 MG TAB PO SCH (09:45)
[2021-06-23] MEDS: FLUTICASONE PROP 0.05% NASAL SPRAY 16 GM (FLONASE) NARES SCH ×2 (10:08→21:12)
[2021-06-23] MEDS ORDERED: IPRATROPIUM 0.5MG/ALBUTEROL 2.5MG INH SOL UD 3ML (DUONEB) NEB ONE (10:10)
[2021-06-23] MEDS: RAMELTEON 8 MG TAB (ROZEREM) PO SCH (21:11)
[2021-06-23] MEDS: LATANOPROST 0.005% OPHTH SOLN 2.5 ML OU SCH (21:12)
[2021-06-24] VITALS (18 sets, daily range): BP systolic 108–142; BP diastolic 62–87; O2SAT 88–95
[2021-06-24] MEDS: PIPERACILLIN/TAZOBACTAM SOD 3.375 GM in D5W MINI-BAG PLUS 50 ML IV SCH ×5 (00:21→23:23)
[2021-06-24] MEDS: IPRATROPIUM 0.02% SOLN 0.5MG 2.5ML NEB NEB SCH ×4 (00:34→19:48)
[2021-06-24] MEDS: LEVALBUTEROL 1.25 MG/0.5 ML CONCENTRATE NEB NEB SCH ×6 (00:34→19:48)
[2021-06-24 05:47] LABS: BASO % 0.2 % (0.0-1.0); HEMATOCRIT 47.5 % (42.0-52.0); LYMPH # 0.5 10^3/uL (1.5-5.0); LYMPH % 6.1 % (24.0-44.0); MEAN CORPUSCULAR HGB CONC 33.7 g/dl (32.0-36.5); MONO # 0.4 10^3/uL (0.0-0.8); MONO % 4.1 % (2.0-8.0); NEUTROPHILS # 7.8 10^3/uL (1.5-8.5); NEUTROPHILS % 88.5 % (36.0-66.0); PLATELET COUNT, AUTOMATED 117 10^3/uL (150-450); RED BLOOD COUNT 5.34 10^6/uL (4.30-6.10); WHITE BLOOD COUNT 8.8 10^3/uL (4.0-10.0)
[2021-06-24 06:09] LABS: BLOOD UREA NITROGEN 39 MG/DL (7-18); CALCIUM LEVEL 7.5 MG/DL (8.8-10.2); CARBON DIOXIDE LEVEL 28 MEQ/L (21-32); CHLORIDE LEVEL 94 MEQ/L (98-107); GLOMERULAR FILTRATION RATE > 60.0 (>49); GLUCOSE, FASTING 332 MG/DL (70-100); POTASSIUM SERUM 4.8 MEQ/L (3.5-5.1); SODIUM LEVEL 130 MEQ/L (136-145)
[2021-06-24] MEDS: HEPARIN SOD (PORCINE) 5000UNITS/ML 1ML VIAL/SYRINGE SC SCH ×3 (06:23→21:55)
[2021-06-24] MEDS: ADVAIR HFA 230/21MCG INHALER INH SCH ×2 (07:49→19:48)
[2021-06-24] MEDS: VANCOMYCIN HCL 1,000 MG, VIAL MATE ADAPTER 1 EACH in NS 250 ML IV SCH (08:14)
[2021-06-24] MEDS: SPIRONOLACTONE 12.5MG PER 1/2 TABLET PO SCH (08:51)
[2021-06-24] MEDS: ASPIRIN 81MG ENTERIC TABLET PO SCH (08:51)
[2021-06-24] MEDS: ATORVASTATIN 20 MG TAB PO SCH (08:52)
[2021-06-24] MEDS: MONTELUKAST 10 MG TAB PO SCH (08:52)
[2021-06-24] MEDS: LISINOPRIL *2.5 MG* TAB PO SCH (08:52)
[2021-06-24] MEDS: TORSEMIDE 10 MG TABLET PO SCH (08:52)
[2021-06-24] MEDS: LACTOBACILLUS ACIDOPHILUS CAP (BACID) PO SCH (08:53)
[2021-06-24] MEDS: HumaLOG INSULIN (NovoLOG) PER UNIT SC SCH ×4 (08:53→20:13)
[2021-06-24] MEDS: CARVedilol 3.125 MG TAB PO SCH ×2 (08:53→20:04)
[2021-06-24] MEDS: FLUTICASONE PROP 0.05% NASAL SPRAY 16 GM (FLONASE) NARES SCH ×2 (08:54→20:06)
[2021-06-24] MEDS ORDERED: LEVEMIR (INSULIN DETEMIR) 1 UNITS/0.01ML SC SCH (09:00)
[2021-06-24] MEDS: methylPREDNISolone 40MG 1ML VIAL IV SCH ×2 (10:16→20:03)
[2021-06-24 12:30] LABS: ABG BASE EXCESS 3.4 (-2.0-2.0); ABG HCO3 27.7 MEQ/L (22.0-26.0); ABG O2 SATURATION 92.5 % (95.0-99.0); ABG PARTIAL PRESSURE CO2 40.9 mmHg (35.0-45.0); ABG PARTIAL PRESSURE O2 59.8 mmHg (75.0-100.0); ABG STANDARD HCO3 27.3 MEQ/L (22.0-26.0); ABG TOTAL CO2 28.9 MEQ/L (23.0-31.0); ABG pH (ARTERIAL) 7.448 UNITS (7.350-7.450)
[2021-06-24] MEDS: FUROSEMIDE 40MG/4ML VIAL (J1940) IV SCH ×2 (13:14→20:03)
[2021-06-24 13:39] LABS: NT-PRO BNP 523 PG/ML (<125)
[2021-06-24] MEDS ORDERED: LEVEMIR (INSULIN DETEMIR) 1 UNITS/0.01ML SC ONE (15:50)
[2021-06-24] MEDS ORDERED: HumaLOG INSULIN (NovoLOG) PER UNIT SC ONE (15:50)
[2021-06-24] MEDS: RAMELTEON 8 MG TAB (ROZEREM) PO SCH (20:04)
[2021-06-24] MEDS: LATANOPROST 0.005% OPHTH SOLN 2.5 ML OU SCH (20:06)
[2021-06-25] VITALS (24 sets, daily range): BP systolic 104–124; BP diastolic 60–80; O2SAT 86–95
[2021-06-25] MEDS: IPRATROPIUM 0.02% SOLN 0.5MG 2.5ML NEB NEB SCH ×4 (00:29→20:00)
[2021-06-25] MEDS: LEVALBUTEROL 1.25 MG/0.5 ML CONCENTRATE NEB NEB SCH ×6 (00:29→20:00)
[2021-06-25] MEDS: FUROSEMIDE 40MG/4ML VIAL (J1940) IV SCH (04:48)
[2021-06-25] MEDS: PIPERACILLIN/TAZOBACTAM SOD 3.375 GM in D5W MINI-BAG PLUS 50 ML IV SCH ×3 (05:22→18:07)
[2021-06-25] MEDS: HEPARIN SOD (PORCINE) 5000UNITS/ML 1ML VIAL/SYRINGE SC SCH ×3 (05:22→20:44)
[2021-06-25 05:51] LABS: BASO % 0.1 % (0.0-1.0); HEMATOCRIT 49.2 % (42.0-52.0); LYMPH # 0.4 10^3/uL (1.5-5.0); LYMPH % 4.7 % (24.0-44.0); MEAN CORPUSCULAR HEMOGLOBIN 30.1 pg (27.0-33.0); MEAN CORPUSCULAR HGB CONC 34.6 g/dl (32.0-36.5); MEAN CORPUSCULAR VOLUME 87.2 fl (80.0-96.0); MONO # 0.4 10^3/uL (0.0-0.8); MONO % 5.1 % (2.0-8.0); NEUTROPHILS # 6.8 10^3/uL (1.5-8.5); NEUTROPHILS % 89.1 % (36.0-66.0); PLATELET COUNT, AUTOMATED 123 10^3/uL (150-450); RED BLOOD COUNT 5.64 10^6/uL (4.30-6.10); WHITE BLOOD COUNT 7.7 10^3/uL (4.0-10.0)
[2021-06-25 06:17] LABS: CALCIUM LEVEL 8.3 MG/DL (8.8-10.2); CREATININE FOR GFR 1.44 MG/DL (0.70-1.30); GLOMERULAR FILTRATION RATE 53.3 (>49); POTASSIUM SERUM 4.5 MEQ/L (3.5-5.1)
[2021-06-25] MEDS: ADVAIR HFA 230/21MCG INHALER INH SCH ×2 (08:05→20:10)
[2021-06-25] MEDS: HumaLOG INSULIN (NovoLOG) PER UNIT SC SCH ×4 (08:26→20:44)
[2021-06-25] MEDS: ASPIRIN 81MG ENTERIC TABLET PO SCH (08:27)
[2021-06-25] MEDS: methylPREDNISolone 40MG 1ML VIAL IV SCH (08:27)
[2021-06-25] MEDS ORDERED: ONDANSETRON 4MG/2ML VIAL IV PRN (08:35)
[2021-06-25] MEDS ORDERED: LEVEMIR (INSULIN DETEMIR) 1 UNITS/0.01ML SC SCH ×2 (09:00)
[2021-06-25] MEDS: ATORVASTATIN 20 MG TAB PO SCH (10:23)
[2021-06-25] MEDS: MONTELUKAST 10 MG TAB PO SCH (10:23)
[2021-06-25] MEDS: FLUTICASONE PROP 0.05% NASAL SPRAY 16 GM (FLONASE) NARES SCH ×2 (10:24→20:44)
[2021-06-25] MEDS: LACTOBACILLUS ACIDOPHILUS CAP (BACID) PO SCH (10:24)
[2021-06-25] MEDS: CARVedilol 3.125 MG TAB PO SCH ×2 (10:35→20:43)
[2021-06-25 11:15] LABS: CK-MB VALUE MASS < 1.0 NG/ML (<3.6); CPK CREATINE PHOSPHOKINASE 82 U/L (39-308); MB/CK RELATIVE INDEX 1.22 (< OR =4)
[2021-06-25] MEDS: ACETAMINOPHEN TAB 650MG DOSE (2X325MG) PO PRN (15:15)
[2021-06-25] MEDS ORDERED: HumaLOG INSULIN (NovoLOG) PER UNIT SC ONE (16:00)
[2021-06-25] MEDS: AZITHROMYCIN INJ 500 MG, VIAL MATE ADAPTER 1 EACH in NS 250 ML IV SCH (16:13)
[2021-06-25] MEDS: RAMELTEON 8 MG TAB (ROZEREM) PO SCH (20:43)
[2021-06-25] MEDS: LATANOPROST 0.005% OPHTH SOLN 2.5 ML OU SCH (20:44)
[2021-06-26] VITALS (18 sets, daily range): BP systolic 102–132; BP diastolic 66–76; O2SAT 81–92
[2021-06-26] MEDS: PIPERACILLIN/TAZOBACTAM SOD 3.375 GM in D5W MINI-BAG PLUS 50 ML IV SCH ×4 (00:30→18:05)
[2021-06-26] MEDS: IPRATROPIUM 0.02% SOLN 0.5MG 2.5ML NEB NEB SCH ×2 (01:20→08:33)
[2021-06-26] MEDS: LEVALBUTEROL 1.25 MG/0.5 ML CONCENTRATE NEB NEB SCH ×3 (01:20→08:00)
[2021-06-26 05:25] LABS: BASO % 0.1 % (0.0-1.0); HEMATOCRIT 48.1 % (42.0-52.0); HEMOGLOBIN 16.5 g/dl (13.5-17.5); LYMPH # 0.5 10^3/uL (1.5-5.0); MEAN CORPUSCULAR HEMOGLOBIN 29.7 pg (27.0-33.0); MEAN CORPUSCULAR HGB CONC 34.3 g/dl (32.0-36.5); MEAN CORPUSCULAR VOLUME 86.7 fl (80.0-96.0); MONO # 0.4 10^3/uL (0.0-0.8); MONO % 5.2 % (2.0-8.0); NEUTROPHILS # 6.7 10^3/uL (1.5-8.5); NEUTROPHILS % 86.1 % (36.0-66.0); PLATELET COUNT, AUTOMATED 119 10^3/uL (150-450); RED BLOOD COUNT 5.55 10^6/uL (4.30-6.10); WHITE BLOOD COUNT 7.7 10^3/uL (4.0-10.0)
[2021-06-26] MEDS: HEPARIN SOD (PORCINE) 5000UNITS/ML 1ML VIAL/SYRINGE SC SCH ×3 (05:36→22:51)
[2021-06-26 05:51] LABS: BLOOD UREA NITROGEN 42 MG/DL (7-18); CALCIUM LEVEL 7.9 MG/DL (8.8-10.2); CARBON DIOXIDE LEVEL 32 MEQ/L (21-32); CHLORIDE LEVEL 91 MEQ/L (98-107); CREATININE FOR GFR 1.28 MG/DL (0.70-1.30); GLOMERULAR FILTRATION RATE > 60.0 (>49); GLUCOSE, FASTING 365 MG/DL (70-100); SODIUM LEVEL 130 MEQ/L (136-145)
[2021-06-26] MEDS: ASPIRIN 81MG ENTERIC TABLET PO SCH (08:23)
[2021-06-26] MEDS: LACTOBACILLUS ACIDOPHILUS CAP (BACID) PO SCH (08:23)
[2021-06-26] MEDS: MONTELUKAST 10 MG TAB PO SCH (08:23)
[2021-06-26] MEDS: CARVedilol 3.125 MG TAB PO SCH ×2 (08:24→21:00)
[2021-06-26] MEDS: ATORVASTATIN 20 MG TAB PO SCH (08:24)
[2021-06-26] MEDS: HumaLOG INSULIN (NovoLOG) PER UNIT SC SCH ×4 (08:25→21:00)
[2021-06-26] MEDS: LEVEMIR (INSULIN DETEMIR) 1 UNITS/0.01ML SC SCH (08:25)
[2021-06-26] MEDS: FLUTICASONE PROP 0.05% NASAL SPRAY 16 GM (FLONASE) NARES SCH ×2 (08:26→21:00)
[2021-06-26] MEDS: ADVAIR HFA 230/21MCG INHALER INH SCH ×2 (08:33→20:01)
[2021-06-26] MEDS: IPRATROPIUM 0.5MG/ALBUTEROL 2.5MG INH SOL UD 3ML (DUONEB) NEB SCH ×2 (14:08→20:00)
[2021-06-26] MEDS: TIOTROPIUM INHALER/CAPSULE (SPIRIVA) INH SCH (14:08)
[2021-06-26] MEDS: AZITHROMYCIN INJ 500 MG, VIAL MATE ADAPTER 1 EACH in NS 250 ML IV SCH (16:28)
[2021-06-26] MEDS: RAMELTEON 8 MG TAB (ROZEREM) PO SCH (21:00)
[2021-06-26] MEDS: LATANOPROST 0.005% OPHTH SOLN 2.5 ML OU SCH (21:00)
[2021-06-27] VITALS (24 sets, daily range): BP systolic 100–116; BP diastolic 55–89; O2SAT 79–96
[2021-06-27] MEDS: PIPERACILLIN/TAZOBACTAM SOD 3.375 GM in D5W MINI-BAG PLUS 50 ML IV SCH ×2 (00:11→06:04)
[2021-06-27] MEDS: IPRATROPIUM 0.5MG/ALBUTEROL 2.5MG INH SOL UD 3ML (DUONEB) NEB SCH ×4 (01:07→20:00)
[2021-06-27] MEDS: HEPARIN SOD (PORCINE) 5000UNITS/ML 1ML VIAL/SYRINGE SC SCH ×3 (06:04→21:17)
[2021-06-27 06:28] LABS: HEMOGLOBIN 15.6 g/dl (13.5-17.5); MEAN CORPUSCULAR HEMOGLOBIN 29.7 pg (27.0-33.0); MEAN CORPUSCULAR HGB CONC 34.7 g/dl (32.0-36.5); MEAN CORPUSCULAR VOLUME 85.6 fl (80.0-96.0); PLATELET COUNT, AUTOMATED 130 10^3/uL (150-450); RED BLOOD COUNT 5.26 10^6/uL (4.30-6.10)
[2021-06-27 06:46] LABS: BLOOD UREA NITROGEN 36 MG/DL (7-18); CALCIUM LEVEL 7.8 MG/DL (8.8-10.2); CARBON DIOXIDE LEVEL 31 MEQ/L (21-32); CHLORIDE LEVEL 91 MEQ/L (98-107); CREATININE FOR GFR 1.17 MG/DL (0.70-1.30); GLOMERULAR FILTRATION RATE > 60.0 (>49); GLUCOSE, FASTING 362 MG/DL (70-100); POTASSIUM SERUM 3.9 MEQ/L (3.5-5.1); SODIUM LEVEL 128 MEQ/L (136-145)
[2021-06-27 06:47] LABS: ANISOCYTOSIS 1+; ATYPICAL LYMPH 5 % (0-5); LYMPHOCYTES 8 % (16-44); MONOCYTES 11 % (0-5); NEUTROPHILS 76 % (28-66); PLATELET ESTIMATE DECREASED (NORMAL); POIKILOCYTOSIS 1+
[2021-06-27] MEDS: TIOTROPIUM INHALER/CAPSULE (SPIRIVA) INH SCH (07:36)
[2021-06-27] MEDS: ADVAIR HFA 230/21MCG INHALER INH SCH ×2 (07:36→20:34)
[2021-06-27 08:38] LABS: ABG BASE EXCESS 6.7 (-2.0-2.0); ABG HCO3 31.9 MEQ/L (22.0-26.0); ABG O2 SATURATION 92.3 % (95.0-99.0); ABG PARTIAL PRESSURE CO2 46.8 mmHg (35.0-45.0); ABG PARTIAL PRESSURE O2 61.3 mmHg (75.0-100.0); ABG STANDARD HCO3 30.4 MEQ/L (22.0-26.0); ABG TOTAL CO2 33.3 MEQ/L (23.0-31.0); ABG pH (ARTERIAL) 7.451 UNITS (7.350-7.450)
[2021-06-27] MEDS: HumaLOG INSULIN (NovoLOG) PER UNIT SC SCH ×4 (09:10→21:14)
[2021-06-27] MEDS: LEVEMIR (INSULIN DETEMIR) 1 UNITS/0.01ML SC SCH (09:11)
[2021-06-27] MEDS: ASPIRIN 81MG ENTERIC TABLET PO SCH (09:11)
[2021-06-27] MEDS: FLUTICASONE PROP 0.05% NASAL SPRAY 16 GM (FLONASE) NARES SCH ×2 (09:12→21:00)
[2021-06-27] MEDS: ATORVASTATIN 20 MG TAB PO SCH (09:12)
[2021-06-27] MEDS: MONTELUKAST 10 MG TAB PO SCH (09:12)
[2021-06-27] MEDS: CARVedilol 3.125 MG TAB PO SCH ×2 (09:12→21:15)
[2021-06-27] MEDS: LACTOBACILLUS ACIDOPHILUS CAP (BACID) PO SCH (09:12)
[2021-06-27] MEDS: cefTRIAXone SOD 1 GM in D5W MINI-BAG PLUS 50 ML IV SCH (12:29)
[2021-06-27] MEDS: BARICITINIB 2MG TABLET (OLUMIANT) FOR EUA PO SCH (14:49)
[2021-06-27] MEDS: dexameTHASONE 4 MG/ML 1ML VIAL (J1100 PER 1MG) IV SCH (14:50)
[2021-06-27 16:09] LABS: BODY FLUID CULTURE Not indicated. (.); LEGIONELLA ANTIGEN URINE Negative (Negative); ORGANISM ID Not indicated. (.); SPECIMEN SOURCE Urine (.); URINE STREP PNEUMONIAE ANTIGEN Negative (Negative)
[2021-06-27] MEDS: AZITHROMYCIN INJ 500 MG, VIAL MATE ADAPTER 1 EACH in NS 250 ML IV SCH (16:32)
[2021-06-27] MEDS ORDERED: REMDESIVIR 200 MG in NS 250 ML IV ONE (18:00)
[2021-06-27] MEDS ORDERED: SODIUM CHLORIDE 0.9% INJ 10 ML SYR IV ONE (19:00)
[2021-06-27] MEDS: RAMELTEON 8 MG TAB (ROZEREM) PO SCH (21:15)
[2021-06-27] MEDS: LATANOPROST 0.005% OPHTH SOLN 2.5 ML OU SCH (21:28)
[2021-06-28] VITALS (14 sets, daily range): BP systolic 105–122; BP diastolic 63–70; O2SAT 91–95
[2021-06-28] MEDS: cefTRIAXone SOD 1 GM in D5W MINI-BAG PLUS 50 ML IV SCH ×2 (00:14→12:32)
[2021-06-28] MEDS: IPRATROPIUM 0.5MG/ALBUTEROL 2.5MG INH SOL UD 3ML (DUONEB) NEB SCH ×4 (01:24→20:34)
[2021-06-28] MEDS: HEPARIN SOD (PORCINE) 5000UNITS/ML 1ML VIAL/SYRINGE SC SCH ×3 (05:03→20:22)
[2021-06-28 05:28] LABS: HEMATOCRIT 41.8 % (42.0-52.0); HEMOGLOBIN 14.4 g/dl (13.5-17.5); MEAN CORPUSCULAR HEMOGLOBIN 30.1 pg (27.0-33.0); MEAN CORPUSCULAR HGB CONC 34.4 g/dl (32.0-36.5); MEAN CORPUSCULAR VOLUME 87.4 fl (80.0-96.0); PLATELET COUNT, AUTOMATED 172 10^3/uL (150-450); RED BLOOD COUNT 4.78 10^6/uL (4.30-6.10); WHITE BLOOD COUNT 6.8 10^3/uL (4.0-10.0)
[2021-06-28 05:57] LABS: BLOOD UREA NITROGEN 39 MG/DL (7-18); CALCIUM LEVEL 7.8 MG/DL (8.8-10.2); CARBON DIOXIDE LEVEL 35 MEQ/L (21-32); CHLORIDE LEVEL 93 MEQ/L (98-107); CREATININE FOR GFR 1.11 MG/DL (0.70-1.30); GLOMERULAR FILTRATION RATE > 60.0 (>49); GLUCOSE, FASTING 372 MG/DL (70-100); POTASSIUM SERUM 4.7 MEQ/L (3.5-5.1); SODIUM LEVEL 133 MEQ/L (136-145)
[2021-06-28 06:07] LABS: ATYPICAL LYMPH 4 % (0-5); LYMPHOCYTES 9 % (16-44); MONOCYTES 5 % (0-5); NEUTROPHILS 72 % (28-66); PLATELET ESTIMATE NORMAL (NORMAL)
[2021-06-28] MEDS: HumaLOG INSULIN (NovoLOG) PER UNIT SC SCH ×4 (08:04→20:21)
[2021-06-28] MEDS: TIOTROPIUM INHALER/CAPSULE (SPIRIVA) INH SCH (08:55)
[2021-06-28] MEDS: ADVAIR HFA 230/21MCG INHALER INH SCH ×2 (08:55→20:35)
[2021-06-28] MEDS: CARVedilol 3.125 MG TAB PO SCH ×2 (09:00→20:21)
[2021-06-28] MEDS: ASPIRIN 81MG ENTERIC TABLET PO SCH (09:06)
[2021-06-28] MEDS: dexameTHASONE 4 MG/ML 1ML VIAL (J1100 PER 1MG) IV SCH (09:06)
[2021-06-28] MEDS: BARICITINIB 2MG TABLET (OLUMIANT) FOR EUA PO SCH (09:07)
[2021-06-28] MEDS: LACTOBACILLUS ACIDOPHILUS CAP (BACID) PO SCH (09:07)
[2021-06-28] MEDS: ATORVASTATIN 20 MG TAB PO SCH (09:07)
[2021-06-28] MEDS: FLUTICASONE PROP 0.05% NASAL SPRAY 16 GM (FLONASE) NARES SCH ×2 (09:08→20:21)
[2021-06-28] MEDS: LEVEMIR (INSULIN DETEMIR) 1 UNITS/0.01ML SC SCH (09:08)
[2021-06-28] MEDS: MONTELUKAST 10 MG TAB PO SCH (09:08)
[2021-06-28] MEDS: AZITHROMYCIN 250MG TABLET PO SCH (16:50)
[2021-06-28] MEDS: REMDESIVIR 100 MG in NS 250 ML IV SCH (18:01)
[2021-06-28] MEDS: SODIUM CHLORIDE 0.9% INJ 10 ML SYR IV SCH (19:52)
[2021-06-28] MEDS: RAMELTEON 8 MG TAB (ROZEREM) PO SCH (20:21)
[2021-06-28] MEDS: LATANOPROST 0.005% OPHTH SOLN 2.5 ML OU SCH (20:21)
[2021-06-29] VITALS: BP 118/73
[2021-06-29] MEDS: cefTRIAXone SOD 1 GM in D5W MINI-BAG PLUS 50 ML IV SCH ×2 (00:41→12:41)
[2021-06-29] MEDS: IPRATROPIUM 0.5MG/ALBUTEROL 2.5MG INH SOL UD 3ML (DUONEB) NEB SCH ×4 (02:01→19:58)
[2021-06-29 04:00] VITALS: BP 118/70
[2021-06-29 04:18] LABS: HEMATOCRIT 40.4 % (42.0-52.0); HEMOGLOBIN 13.6 g/dl (13.5-17.5); MEAN CORPUSCULAR HEMOGLOBIN 29.7 pg (27.0-33.0); MEAN CORPUSCULAR HGB CONC 33.7 g/dl (32.0-36.5); MEAN CORPUSCULAR VOLUME 88.2 fl (80.0-96.0); PLATELET COUNT, AUTOMATED 203 10^3/uL (150-450); RED BLOOD COUNT 4.58 10^6/uL (4.30-6.10); WHITE BLOOD COUNT 9.7 10^3/uL (4.0-10.0)
[2021-06-29 04:45] LABS: BLOOD UREA NITROGEN 33 MG/DL (7-18); CALCIUM LEVEL 8.2 MG/DL (8.8-10.2); CARBON DIOXIDE LEVEL 35 MEQ/L (21-32); CHLORIDE LEVEL 95 MEQ/L (98-107); CREATININE FOR GFR 1.12 MG/DL (0.70-1.30); GLOMERULAR FILTRATION RATE > 60.0 (>49); GLUCOSE, FASTING 431 MG/DL (70-100); POTASSIUM SERUM 4.2 MEQ/L (3.5-5.1); SODIUM LEVEL 134 MEQ/L (136-145)
[2021-06-29 05:18] LABS: ATYPICAL LYMPH 6 % (0-5); LYMPHOCYTES 10 % (16-44); MONOCYTES 10 % (0-5); NEUTROPHILS 74 % (28-66); PLATELET CLUMPS SMALL AMT; PLATELET ESTIMATE NORMAL (NORMAL)
[2021-06-29] MEDS: HEPARIN SOD (PORCINE) 5000UNITS/ML 1ML VIAL/SYRINGE SC SCH ×3 (06:06→21:11)
[2021-06-29] MEDS: HumaLOG INSULIN (NovoLOG) PER UNIT SC SCH ×4 (06:07→20:54)
[2021-06-29] MEDS: TIOTROPIUM INHALER/CAPSULE (SPIRIVA) INH SCH (07:35)
[2021-06-29] MEDS: ADVAIR HFA 230/21MCG INHALER INH SCH ×2 (07:36→20:08)
[2021-06-29 08:00] VITALS: BP 135/69
[2021-06-29] MEDS ORDERED: LEVEMIR (INSULIN DETEMIR) 1 UNITS/0.01ML SC SCH ×2 (09:00)
[2021-06-29] MEDS: dexameTHASONE 4 MG/ML 1ML VIAL (J1100 PER 1MG) IV SCH (09:39)
[2021-06-29] MEDS: LACTOBACILLUS ACIDOPHILUS CAP (BACID) PO SCH (09:39)
[2021-06-29] MEDS: ASPIRIN 81MG ENTERIC TABLET PO SCH (09:39)
[2021-06-29] MEDS: ATORVASTATIN 20 MG TAB PO SCH (09:40)
[2021-06-29] MEDS: MONTELUKAST 10 MG TAB PO SCH (09:40)
[2021-06-29] MEDS: FLUTICASONE PROP 0.05% NASAL SPRAY 16 GM (FLONASE) NARES SCH ×2 (09:40→20:56)
[2021-06-29] MEDS: CARVedilol 3.125 MG TAB PO SCH ×2 (09:40→20:56)
[2021-06-29] MEDS: BARICITINIB 2MG TABLET (OLUMIANT) FOR EUA PO SCH (09:43)
[2021-06-29 12:00] VITALS: BP 117/64
[2021-06-29] MEDS ORDERED: HumaLOG INSULIN (NovoLOG) PER UNIT SC STA (14:45)
[2021-06-29 16:00] VITALS: BP 131/68
[2021-06-29] MEDS: AZITHROMYCIN 250MG TABLET PO SCH (17:39)
[2021-06-29] MEDS: REMDESIVIR 100 MG in NS 250 ML IV SCH (17:39)
[2021-06-29 20:00] VITALS: BP 117/62
[2021-06-29] MEDS ORDERED: LEVEMIR (INSULIN DETEMIR) 1 UNITS/0.01ML SC ONE (20:30)
[2021-06-29] MEDS: SODIUM CHLORIDE 0.9% INJ 10 ML SYR IV SCH (20:53)
[2021-06-29] MEDS: RAMELTEON 8 MG TAB (ROZEREM) PO SCH (20:55)
[2021-06-29] MEDS: LATANOPROST 0.005% OPHTH SOLN 2.5 ML OU SCH (20:56)
[2021-06-30] VITALS: BP 119/75
[2021-06-30] MEDS: cefTRIAXone SOD 1 GM in D5W MINI-BAG PLUS 50 ML IV SCH ×3 (00:22→23:20)
[2021-06-30] MEDS: IPRATROPIUM 0.5MG/ALBUTEROL 2.5MG INH SOL UD 3ML (DUONEB) NEB SCH ×4 (02:02→18:55)
[2021-06-30 04:00] VITALS: BP 116/71
[2021-06-30] MEDS: HEPARIN SOD (PORCINE) 5000UNITS/ML 1ML VIAL/SYRINGE SC SCH ×3 (06:21→20:40)
[2021-06-30 07:43] LABS: BASO # 0.1 10^3/uL (0.0-0.2); BASO % 0.5 % (0.0-1.0); EOS # 0.1 10^3/uL (0.0-0.5); EOS % 0.9 % (0.0-3.0); HEMATOCRIT 42.1 % (42.0-52.0); LYMPH # 1.2 10^3/uL (1.5-5.0); LYMPH % 10.9 % (24.0-44.0); MEAN CORPUSCULAR HEMOGLOBIN 29.6 pg (27.0-33.0); MEAN CORPUSCULAR HGB CONC 33.3 g/dl (32.0-36.5); MONO # 0.9 10^3/uL (0.0-0.8); MONO % 8.6 % (2.0-8.0); NEUTROPHILS % 74.4 % (36.0-66.0); PLATELET COUNT, AUTOMATED 227 10^3/uL (150-450); RED BLOOD COUNT 4.73 10^6/uL (4.30-6.10); WHITE BLOOD COUNT 10.7 10^3/uL (4.0-10.0)
[2021-06-30] MEDS: TIOTROPIUM INHALER/CAPSULE (SPIRIVA) INH SCH (07:48)
[2021-06-30] MEDS: ADVAIR HFA 230/21MCG INHALER INH SCH ×2 (07:49→18:55)
[2021-06-30 08:00] VITALS: BP 142/67
[2021-06-30 08:22] LABS: ALBUMIN 2.4 GM/DL (3.2-5.2); ALT/SGPT 98 U/L (12-78); BILIRUBIN,TOTAL 0.5 MG/DL (0.2-1.0); BLOOD UREA NITROGEN 30 MG/DL (7-18); CARBON DIOXIDE LEVEL 32 MEQ/L (21-32); CHLORIDE LEVEL 103 MEQ/L (98-107); CREATININE FOR GFR 1.01 MG/DL (0.70-1.30); GLOMERULAR FILTRATION RATE > 60.0 (>49); GLUCOSE, FASTING 262 MG/DL (70-100); MAGNESIUM LEVEL 2.1 MG/DL (1.8-2.4); POTASSIUM SERUM 4.1 MEQ/L (3.5-5.1); SODIUM LEVEL 142 MEQ/L (136-145); TOTAL PROTEIN 5.1 GM/DL (6.4-8.2)
[2021-06-30] MEDS: ATORVASTATIN 20 MG TAB PO SCH (09:26)
[2021-06-30] MEDS: ASPIRIN 81MG ENTERIC TABLET PO SCH (09:26)
[2021-06-30] MEDS: LACTOBACILLUS ACIDOPHILUS CAP (BACID) PO SCH (09:26)
[2021-06-30] MEDS: MONTELUKAST 10 MG TAB PO SCH (09:26)
[2021-06-30] MEDS: dexameTHASONE 4 MG/ML 1ML VIAL (J1100 PER 1MG) IV SCH (09:26)
[2021-06-30] MEDS: BARICITINIB 2MG TABLET (OLUMIANT) FOR EUA PO SCH (09:27)
[2021-06-30] MEDS: HumaLOG INSULIN (NovoLOG) PER UNIT SC SCH ×4 (09:28→20:40)
[2021-06-30] MEDS: LEVEMIR (INSULIN DETEMIR) 1 UNITS/0.01ML SC SCH ×2 (09:28→20:40)
[2021-06-30] MEDS: CARVedilol 3.125 MG TAB PO SCH ×2 (09:30→20:39)
[2021-06-30] MEDS: FLUTICASONE PROP 0.05% NASAL SPRAY 16 GM (FLONASE) NARES SCH ×2 (09:31→20:40)
[2021-06-30 16:00] VITALS: BP 148/66
[2021-06-30] MEDS: AZITHROMYCIN 250MG TABLET PO SCH (17:19)
[2021-06-30] MEDS: REMDESIVIR 100 MG in NS 250 ML IV SCH (17:19)
[2021-06-30] MEDS: SODIUM CHLORIDE 0.9% INJ 10 ML SYR IV SCH (19:20)
[2021-06-30 19:30] VITALS: BP 128/68
[2021-06-30] MEDS: RAMELTEON 8 MG TAB (ROZEREM) PO SCH (20:39)
[2021-06-30] MEDS: LATANOPROST 0.005% OPHTH SOLN 2.5 ML OU SCH (20:40)
[2021-06-30 21:05] VITALS: BP 142/74
[2021-07-01] MEDS: IPRATROPIUM 0.5MG/ALBUTEROL 2.5MG INH SOL UD 3ML (DUONEB) NEB SCH ×2 (02:09→07:57)
[2021-07-01 04:00] VITALS: BP 105/77
[2021-07-01] MEDS: HEPARIN SOD (PORCINE) 5000UNITS/ML 1ML VIAL/SYRINGE SC SCH (06:16)
[2021-07-01 07:25] LABS: HEMATOCRIT 40.8 % (42.0-52.0); HEMOGLOBIN 13.8 g/dl (13.5-17.5); MEAN CORPUSCULAR HEMOGLOBIN 30.1 pg (27.0-33.0); MEAN CORPUSCULAR HGB CONC 33.8 g/dl (32.0-36.5); MEAN CORPUSCULAR VOLUME 89.1 fl (80.0-96.0); PLATELET COUNT, AUTOMATED 240 10^3/uL (150-450); RED BLOOD COUNT 4.58 10^6/uL (4.30-6.10)
[2021-07-01 07:54] LABS: BLOOD UREA NITROGEN 26 MG/DL (7-18); CALCIUM LEVEL 8.6 MG/DL (8.8-10.2); CARBON DIOXIDE LEVEL 34 MEQ/L (21-32); CHLORIDE LEVEL 101 MEQ/L (98-107); CREATININE FOR GFR 0.84 MG/DL (0.70-1.30); GLOMERULAR FILTRATION RATE > 60.0 (>49); GLUCOSE, FASTING 251 MG/DL (70-100); MAGNESIUM LEVEL 2.1 MG/DL (1.8-2.4); POTASSIUM SERUM 3.7 MEQ/L (3.5-5.1); SODIUM LEVEL 138 MEQ/L (136-145)
[2021-07-01] MEDS: TIOTROPIUM INHALER/CAPSULE (SPIRIVA) INH SCH (07:56)
[2021-07-01] MEDS: ADVAIR HFA 230/21MCG INHALER INH SCH (07:56)
[2021-07-01] MEDS: LEVEMIR (INSULIN DETEMIR) 1 UNITS/0.01ML SC SCH (08:41)
[2021-07-01] MEDS: HumaLOG INSULIN (NovoLOG) PER UNIT SC SCH ×2 (08:41→11:41)
[2021-07-01] MEDS: BARICITINIB 2MG TABLET (OLUMIANT) FOR EUA PO SCH (08:42)
[2021-07-01] MEDS: ASPIRIN 81MG ENTERIC TABLET PO SCH (08:42)
[2021-07-01 08:43] VITALS: BP 136/68
[2021-07-01] MEDS: LACTOBACILLUS ACIDOPHILUS CAP (BACID) PO SCH (08:43)
[2021-07-01] MEDS: ATORVASTATIN 20 MG TAB PO SCH (08:43)
[2021-07-01] MEDS: CARVedilol 3.125 MG TAB PO SCH (08:43)
[2021-07-01] MEDS: MONTELUKAST 10 MG TAB PO SCH (08:44)
[2021-07-01] MEDS: dexameTHASONE 4 MG/ML 1ML VIAL (J1100 PER 1MG) IV SCH (08:44)
[2021-07-01] MEDS: FLUTICASONE PROP 0.05% NASAL SPRAY 16 GM (FLONASE) NARES SCH (08:46)
[2021-07-01] MEDS ORDERED: AZIT-12 PO (10:04)
[2021-07-01] MEDS ORDERED: CEFD300C41 PO (10:04)
[2021-07-01] MEDS ORDERED: PRED10TA2 PO (10:04)
== END 2021-07-01 15:05 | disposition home health service (06) | DRG 720 ==
LOC: M ED 02:21 → M ED INP 04:45 → ENRESERV 11:01 → M PCU 11:05 → M ICU 06-27 13:20 → M 4MAIN 06-30 20:49
PROVIDERS: ADMIT Family Medicine; ATTEND Internal Medicine
DX: A41.9 Sepsis, unspecified organism (principal); J96.21 Acute and chronic respiratory failure with hypoxia; U07.1 COVID-19; J12.82 Pneumonia due to coronavirus disease 2019; N17.9 Acute kidney failure, unspecified; I50.32 Chronic diastolic (congestive) heart failure; I11.0 Hypertensive heart disease with heart failure; E66.01 Morbid (severe) obesity due to excess calories; E87.1 Hypo-osmolality and hyponatremia; J44.0 Chronic obstructive pulmonary disease with (acute) lower respiratory infection; Z68.37 Body mass index [BMI] 37.0-37.9, adult; E11.9 Type 2 diabetes mellitus without complications; Z79.899 Other long term (current) drug therapy; Z79.82 Long term (current) use of aspirin; Z79.52 Long term (current) use of systemic steroids; Z95.0 Presence of cardiac pacemaker; G47.33 Obstructive sleep apnea (adult) (pediatric)

== ENCOUNTER → 2021-08-20 | Outpatient (REF) | payer OTHER ==
[~2021-08-20] MED LIST changes: +ATOR40TA75 PO; +AZIT-12 PO; +CARE1KIT XX; +CEFD300C41 PO; +COMBAER6 INH; +DOXY-350 PO; +DOXY-443 PO; +LATA0.0015 OU; +LISI2.5T9 PO; +METF-877 PO; +MITI1CAP PO; +NESI25TA PO; +QC A650T3 PO; +STEG15TA PO; +TORS10TA3 PO; +VITA200016 PO; +[UNRECOGNIZED DRUG - CODE] XX
== END ==
LOC: M SFHCPLAZ 11:51
PROVIDERS: ATTEND Family Medicine
DX: E11.69 Type 2 diabetes mellitus with other specified complication (principal); Z53.8 Procedure and treatment not carried out for other reasons

== ENCOUNTER → 2021-08-20 | Outpatient (CLI) | payer OTHER | LOC: M PLALAB 12:18 | PROVIDERS: ATTEND Student in an Organized Health Care Education/Training Program | DX: E11.69 Type 2 diabetes mellitus with other specified complication (principal) ==

== ENCOUNTER → 2021-11-07 | Outpatient (CLI) | payer OTHER | LOC: M PLAIMG 14:43 | PROVIDERS: ATTEND Internal Medicine Pulmonary Disease | DX: J43.9 Emphysema, unspecified (principal); R59.0 Localized enlarged lymph nodes ==

== ENCOUNTER → 2022-03-11 | Outpatient (REF) | payer OTHER ==
[~2022-03-11] MED LIST changes: +ALBU2.5V10 INH; -ALBU83IN INH
== END ==
LOC: M SFHCPLAZ 17:14
PROVIDERS: ATTEND Physician Assistant
DX: R05.1 Acute cough (principal)

== ENCOUNTER → 2022-03-12 | Outpatient (CLI) | payer OTHER | LOC: M PLAIMG 15:41 | PROVIDERS: ATTEND Physician Assistant | DX: R05.1 Acute cough (principal); J44.9 Chronic obstructive pulmonary disease, unspecified ==

== ENCOUNTER → 2022-06-30 | Outpatient (CLI) | payer OTHER ==
[~2022-06-30] MED LIST changes: -DOXY-350 PO; +DOXY-444 PO
[2022-06-30 15:42] LABS: TOTAL 25(OH) VITAMIN D 30.4 NG/ML (20.0-100.0)
[2022-06-30 15:46] LABS: ALBUMIN 3.9 G/DL (3.2-5.2); ALKALINE PHOSPHATASE 90 U/L (46-116); ALT/SGPT 29 U/L (7.0-40); AST/SGOT 16 U/L (<34); BILIRUBIN,TOTAL 0.8 MG/DL (0.3-1.2); BLOOD UREA NITROGEN 27 MG/DL (9-23); CALCIUM LEVEL 9.3 MG/DL (8.3-10.6); CARBON DIOXIDE LEVEL 31 MMOL/L (20-31); CHLORIDE LEVEL 100 MMOL/L (98-107); CHOLESTEROL LEVEL 138 MG/DL (<200); CHOLESTEROL RISK RATIO 4.52 (<5); CREATININE FOR GFR 0.94 MG/DL (0.70-1.30); GLOMERULAR FILTRATION RATE > 60.0 (>49); GLUCOSE, FASTING 246 MG/DL (74-106); HDL CHOLESTEROL 30.5 MG/DL (>40); LDL CHOLESTEROL 73.9 MG/DL (<100); NON-HDL-C 108 MG/DL; POTASSIUM SERUM 4.9 MMOL/L (3.5-5.1); SODIUM LEVEL 136 MMOL/L (136-145); TOTAL PROTEIN 6.4 G/DL (5.7-8.2); TRIGLYCERIDES LEVEL 168 MG/DL (<150)
[2022-06-30 15:52] LABS: CREATININE, URINE 43.6 MG/DL
[2022-06-30 16:17] LABS: HEMOGLOBIN A1c 10.4 % (4.0-6.0)
== END ==
LOC: M PLALAB 12:50
PROVIDERS: ATTEND Student in an Organized Health Care Education/Training Program
DX: E11.69 Type 2 diabetes mellitus with other specified complication (principal); E78.5 Hyperlipidemia, unspecified; K76.0 Fatty (change of) liver, not elsewhere classified; Z86.39 Personal history of other endocrine, nutritional and metabolic disease

== ENCOUNTER 2022-08-06 18:01 | Emergency (ER) | payer OTHER ==
[~2022-08-06] VITALS: Ht 185.4 cm; Wt 125.0 kg
[2022-08-06 18:02] VITALS: BP 144/78
== END 2022-08-06 21:06 | disposition left against medical advice (07) ==
LOC: M ED 19:27
DX: Z53.21 Procedure and treatment not carried out due to patient leaving prior to being seen by health care provider (principal)

== ENCOUNTER → 2022-08-08 | Outpatient (CLI) | payer OTHER | LOC: M WUC 15:07 | PROVIDERS: ATTEND Physician Assistant | DX: R06.02 Shortness of breath (principal); J44.1 Chronic obstructive pulmonary disease with (acute) exacerbation ==

== ENCOUNTER → 2022-10-21 | Outpatient (CLI) | payer OTHER ==
[2022-10-21 20:22] LABS: HEMOGLOBIN A1c 9.4 % (4.0-6.0)
== END ==
LOC: M PLALAB 16:09
PROVIDERS: ATTEND Student in an Organized Health Care Education/Training Program
DX: E11.69 Type 2 diabetes mellitus with other specified complication (principal)

== ENCOUNTER → 2022-11-19 | Outpatient (CLI) | payer OTHER ==
[2022-11-19 15:26] LABS: HEMOGLOBIN A1c 8.6 % (4.0-6.0)
[2022-11-19 15:40] LABS: BLOOD UREA NITROGEN 15 MG/DL (9-23); CALCIUM LEVEL 8.8 MG/DL (8.3-10.6); CARBON DIOXIDE LEVEL 34 MMOL/L (20-31); CHLORIDE LEVEL 101 MMOL/L (98-107); CREATININE FOR GFR 0.97 MG/DL (0.70-1.30); GLOMERULAR FILTRATION RATE > 60.0 (>49); GLUCOSE, FASTING 139 MG/DL (74-106); POTASSIUM SERUM 4.1 MMOL/L (3.5-5.1); SODIUM LEVEL 140 MMOL/L (136-145)
== END ==
LOC: M PLALAB 11:50
PROVIDERS: ATTEND Student in an Organized Health Care Education/Training Program
DX: I50.32 Chronic diastolic (congestive) heart failure (principal); E11.69 Type 2 diabetes mellitus with other specified complication

== ENCOUNTER → 2022-12-24 | Outpatient (CLI) | payer OTHER | LOC: M RAD 13:03 | PROVIDERS: ATTEND Internal Medicine Pulmonary Disease | DX: Z12.2 Encounter for screening for malignant neoplasm of respiratory organs (principal); F17.218 Nicotine dependence, cigarettes, with other nicotine-induced disorders; J43.9 Emphysema, unspecified; I70.0 Atherosclerosis of aorta; I25.10 Atherosclerotic heart disease of native coronary artery without angina pectoris; J47.9 Bronchiectasis, uncomplicated ==

== ENCOUNTER → 2023-02-11 | Outpatient (CLI) | payer OTHER ==
[2023-02-11 17:41] LABS: HEMATOCRIT 51.3 % (42.0-52.0); HEMOGLOBIN 17.1 g/dl (13.5-17.5); MEAN CORPUSCULAR HEMOGLOBIN 29.9 pg (27.0-33.0); MEAN CORPUSCULAR HGB CONC 33.3 g/dl (32.0-36.5); MEAN CORPUSCULAR VOLUME 89.8 fl (80.0-96.0); PLATELET COUNT, AUTOMATED 139 10^3/uL (150-450); RED BLOOD COUNT 5.71 10^6/uL (4.30-6.10); WHITE BLOOD COUNT 10.9 10^3/uL (4.0-10.0)
[2023-02-11 19:25] LABS: HEMOGLOBIN A1c 8.6 % (4.0-6.0)
== END ==
LOC: M PLALAB 15:31
PROVIDERS: ATTEND Student in an Organized Health Care Education/Training Program
DX: K76.0 Fatty (change of) liver, not elsewhere classified (principal); E11.69 Type 2 diabetes mellitus with other specified complication

== ENCOUNTER → 2023-03-12 | Outpatient (CLI) | payer OTHER ==
[2023-03-12 18:02] LABS: BASO # 0.1 10^3/uL (0.0-0.2); BASO % 1.1 % (0.0-1.0); EOS # 0.3 10^3/uL (0.0-0.5); EOS % 2.5 % (0.0-3.0); HEMATOCRIT 51.7 % (42.0-52.0); HEMOGLOBIN 16.9 g/dl (13.5-17.5); LYMPH % 19.6 % (24.0-44.0); MEAN CORPUSCULAR HEMOGLOBIN 29.9 pg (27.0-33.0); MEAN CORPUSCULAR HGB CONC 32.7 g/dl (32.0-36.5); MEAN CORPUSCULAR VOLUME 91.5 fl (80.0-96.0); MONO # 0.8 10^3/uL (0.0-0.8); MONO % 7.4 % (2.0-8.0); PLATELET COUNT, AUTOMATED 117 10^3/uL (150-450); RED BLOOD COUNT 5.65 10^6/uL (4.30-6.10); WHITE BLOOD COUNT 10.1 10^3/uL (4.0-10.0)
== END ==
LOC: M PLALAB 15:29
PROVIDERS: ATTEND Student in an Organized Health Care Education/Training Program
DX: D69.6 Thrombocytopenia, unspecified (principal)

== ENCOUNTER → 2023-08-18 | Outpatient (CLI) | payer OTHER ==
[~2023-08-18] MED LIST changes: +CEFD1CAP9 PO; -CEFD300C41 PO
== END ==
LOC: M RAD 14:53
PROVIDERS: ATTEND Internal Medicine Pulmonary Disease
DX: R91.8 Other nonspecific abnormal finding of lung field (principal); J98.11 Atelectasis; I25.10 Atherosclerotic heart disease of native coronary artery without angina pectoris; Z95.0 Presence of cardiac pacemaker

== ENCOUNTER → 2024-02-09 | Outpatient (REF) | payer OTHER ==
[~2024-02-09] MED LIST changes: +DOXY-323 PO; +DOXY-440 PO; -DOXY-443 PO; -DOXY-444 PO
== END ==
LOC: M SFHCPLAZ 16:06
PROVIDERS: ATTEND Student in an Organized Health Care Education/Training Program
DX: R05.3 Chronic cough (principal)

== ENCOUNTER → 2024-02-11 | Outpatient (CLI) | payer OTHER ==
[2024-02-11 13:31] LABS: HEMATOCRIT 55.5 % (42.0-52.0)
[2024-02-11 13:33] LABS: BASO # 0.1 10^3/uL (0.0-0.2); BASO % 1.2 % (0.0-1.0); EOS # 0.3 10^3/uL (0.0-0.5); EOS % 3.2 % (0.0-3.0); HEMATOCRIT 55.9 % (42.0-52.0); HEMOGLOBIN 18.4 g/dl (13.5-17.5); LYMPH # 1.5 10^3/uL (1.5-5.0); MEAN CORPUSCULAR HEMOGLOBIN 30.5 pg (27.0-33.0); MEAN CORPUSCULAR HGB CONC 32.9 g/dl (32.0-36.5); MEAN CORPUSCULAR VOLUME 92.5 fl (80.0-96.0); MONO # 0.6 10^3/uL (0.0-0.8); MONO % 7.2 % (2.0-8.0); NEUTROPHILS # 5.9 10^3/uL (1.5-8.5); NEUTROPHILS % 69.9 % (36.0-66.0); PLATELET COUNT, AUTOMATED 119 10^3/uL (150-450); RED BLOOD COUNT 6.04 10^6/uL (4.30-6.10); WHITE BLOOD COUNT 8.5 10^3/uL (4.0-10.0)
[2024-02-11 13:38] LABS: IRON (FE) 114 UG/DL (65-175); PERCENT SATURATION 29.2 % (19.7-50.0); TOTAL IRON BINDING CAPACITY 391 UG/DL (250-425)
[2024-02-11 13:39] LABS: ALKALINE PHOSPHATASE 97 U/L (46-116); ALT/SGPT 44 U/L (7.0-40); AST/SGOT 26 U/L (<34); BLOOD UREA NITROGEN 16 MG/DL (9-23); CALCIUM LEVEL 9.1 MG/DL (8.3-10.6); CARBON DIOXIDE LEVEL 37 MMOL/L (20-31); CHLORIDE LEVEL 96 MMOL/L (98-107); CHOLESTEROL LEVEL 129 MG/DL (<200); CHOLESTEROL RISK RATIO 4.55 (<5); CREATININE FOR GFR 1.03 MG/DL (0.70-1.30); GLOMERULAR FILTRATION RATE > 60.0 (>49); GLUCOSE, FASTING 254 MG/DL (74-106); HDL CHOLESTEROL 28.3 MG/DL (>40); LDL CHOLESTEROL 69.3 MG/DL (<100); NON-HDL-C 100.7 MG/DL; POTASSIUM SERUM 4.7 MMOL/L (3.5-5.1); PSA SCREENING 0.37 NG/ML (< 4.00); SODIUM LEVEL 139 MMOL/L (136-145); TOTAL PROTEIN 6.4 G/DL (5.7-8.2); TRIGLYCERIDES LEVEL 157 MG/DL (<150)
[2024-02-11 13:42] LABS: VITAMIN B12 LEVEL 528 PG/ML (211-911)
[2024-02-11 13:43] LABS: FREE T4 1.18 NG/DL (0.89-1.76); THYROID STIMULATING HORMONE 2.023 uIU/ML (0.55-4.78)
[2024-02-11 13:58] LABS: CREATININE, URINE 69.8 MG/DL; MAU/CREAT RATIO 8.5 MCG/MG (0.0-30.0)
[2024-02-11 14:13] LABS: HIV 1&2 SCREEN NEGATIVE (NEGATIVE)
[2024-02-11 14:21] LABS: HEPATITIS C VIRUS ABY INDEX < 0.02 INDEX (<0.8)
== END ==
LOC: M PLALAB 10:01
PROVIDERS: ATTEND Student in an Organized Health Care Education/Training Program
DX: R05.3 Chronic cough (principal); D69.6 Thrombocytopenia, unspecified; Z76.89 Persons encountering health services in other specified circumstances; K76.0 Fatty (change of) liver, not elsewhere classified; G62.9 Polyneuropathy, unspecified; R53.82 Chronic fatigue, unspecified; E78.5 Hyperlipidemia, unspecified; E55.9 Vitamin D deficiency, unspecified

== ENCOUNTER → 2024-03-25 | Outpatient (CLI) | payer OTHER | LOC: M RAD 15:38 | PROVIDERS: ATTEND Physician Assistant | DX: R91.8 Other nonspecific abnormal finding of lung field (principal); J98.11 Atelectasis; I51.7 Cardiomegaly; I25.10 Atherosclerotic heart disease of native coronary artery without angina pectoris; Z95.0 Presence of cardiac pacemaker; K76.89 Other specified diseases of liver ==

== ENCOUNTER → 2024-04-20 | Outpatient (CLI) | payer OTHER ==
[~2024-04-20] MED LIST changes: -DOXY-323 PO; +DOXY-441 PO
[2024-04-20 14:06] LABS: HEMOGLOBIN A1c 9.3 % (4.0-6.0)
== END ==
LOC: M PLALAB 11:14
PROVIDERS: ATTEND Student in an Organized Health Care Education/Training Program
DX: E11.69 Type 2 diabetes mellitus with other specified complication (principal)

== ENCOUNTER → 2024-08-19 | Outpatient (CLI) | payer OTHER ==
[~2024-08-19] MED LIST changes: +DORZ2SOL4 OU; +GLIP5TAB17 PO; +LEVO1TAB39 PO; +TRUL10IN SC; +XALA0.007 OU
[2024-08-19 17:47] LABS: BASO # 0.1 10^3/uL (0.0-0.2); BASO % 1.3 % (0.0-1.0); EOS # 0.2 10^3/uL (0.0-0.5); EOS % 2.8 % (0.0-3.0); HEMATOCRIT 55.1 % (42.0-52.0); HEMOGLOBIN 17.9 g/dl (13.5-17.5); LYMPH # 0.9 10^3/uL (1.5-5.0); LYMPH % 12.9 % (24.0-44.0); MEAN CORPUSCULAR HEMOGLOBIN 30.1 pg (27.0-33.0); MEAN CORPUSCULAR HGB CONC 32.5 g/dl (32.0-36.5); MEAN CORPUSCULAR VOLUME 92.8 fl (80.0-96.0); MONO % 13.6 % (2.0-8.0); NEUTROPHILS # 4.9 10^3/uL (1.5-8.5); PLATELET COUNT, AUTOMATED 110 10^3/uL (150-450); RED BLOOD COUNT 5.94 10^6/uL (4.30-6.10); WHITE BLOOD COUNT 7.1 10^3/uL (4.0-10.0)
[2024-08-19 18:13] LABS: ALBUMIN 3.5 G/DL (3.2-5.2); ALKALINE PHOSPHATASE 90 U/L (40-129); ALT/SGPT 30 U/L (7.0-40); AST/SGOT 27 U/L (<34); BILIRUBIN,TOTAL 0.9 MG/DL (0.3-1.2); BLOOD UREA NITROGEN 15 MG/DL (9-23); CALCIUM LEVEL 8.9 MG/DL (8.3-10.6); CARBON DIOXIDE LEVEL 35 MMOL/L (20-31); CHLORIDE LEVEL 99 MMOL/L (98-107); CREATININE FOR GFR 0.88 MG/DL (0.70-1.30); GLOMERULAR FILTRATION RATE > 60.0 (>49); GLUCOSE, FASTING 137 MG/DL (74-106); POTASSIUM SERUM 4.3 MMOL/L (3.5-5.1); SODIUM LEVEL 142 MMOL/L (136-145); TOTAL PROTEIN 6.3 G/DL (5.7-8.2)
== END ==
LOC: M PLAIMG 15:58
DX: J06.9 Acute upper respiratory infection, unspecified (principal); I50.40 Unspecified combined systolic (congestive) and diastolic (congestive) heart failure

== ENCOUNTER → 2024-08-19 | Outpatient (REF) | payer OTHER | LOC: M SFHCPLAZ 15:31 | DX: J06.9 Acute upper respiratory infection, unspecified (principal) ==

== ENCOUNTER 2024-08-21 14:17 | Observation (INO) | payer OTHER ==
[~2024-08-21] VITALS: Ht 185.4 cm; Wt 112.7 kg
[~2024-08-21 14:17] MED LIST changes: -DORZ2SOL4 OU; -GLIP5TAB17 PO; -LEVO1TAB39 PO; -TRUL10IN SC; -XALA0.007 OU
[2024-08-21 15:45] LABS: VENOUS HCO3 36.3 MMOL/L (23.0-27.0); VENOUS O2 SATURATION 71.7 % (60.0-80.0); VENOUS PARTIAL PRESSURE CO2 80.2 mmHg (38.0-50.0); VENOUS PARTIAL PRESSURE O2 36.7 mmHg (30.0-50.0); VENOUS PH 7.274 UNITS (7.330-7.430); VENOUS STANDARD HCO3 27.9 MMOL/L; VENOUS TOTAL CO2 38.8 MMOL/L (24.0-28.0)
[2024-08-21] MEDS: methylPREDNISolone 40MG 1ML VIAL IV ONE (15:45)
[2024-08-21 16:14] LABS: CPK CREATINE PHOSPHOKINASE 61 U/L (46-171)
[2024-08-21 16:15] LABS: CK-MB VALUE MASS < 1.0 NG/ML (<3.6); MB/CK RELATIVE INDEX 1.63 (< OR =4)
[2024-08-21 16:16] LABS: BASO # 0.1 10^3/uL (0.0-0.2); BASO % 0.9 % (0.0-1.0); EOS # 0.2 10^3/uL (0.0-0.5); EOS % 2.9 % (0.0-3.0); HEMATOCRIT 56.4 % (42.0-52.0); HEMOGLOBIN 18.3 g/dl (13.5-17.5); LYMPH # 0.9 10^3/uL (1.5-5.0); LYMPH % 14.4 % (24.0-44.0); MEAN CORPUSCULAR HEMOGLOBIN 29.8 pg (27.0-33.0); MEAN CORPUSCULAR HGB CONC 32.4 g/dl (32.0-36.5); MEAN CORPUSCULAR VOLUME 91.7 fl (80.0-96.0); MONO # 0.7 10^3/uL (0.0-0.8); MONO % 11.2 % (2.0-8.0); NEUTROPHILS # 4.5 10^3/uL (1.5-8.5); NEUTROPHILS % 70.4 % (36.0-66.0); PLATELET COUNT, AUTOMATED 115 10^3/uL (150-450); RED BLOOD COUNT 6.15 10^6/uL (4.30-6.10); WHITE BLOOD COUNT 6.5 10^3/uL (4.0-10.0)
[2024-08-21 16:17] LABS: ALKALINE PHOSPHATASE 102 U/L (40-129); ALT/SGPT 28 U/L (7.0-40); AST/SGOT 19 U/L (<34); BILIRUBIN,DIRECT 0.4 MG/DL (<0.4); BLOOD UREA NITROGEN 13 MG/DL (9-23); CALCIUM LEVEL 9.2 MG/DL (8.3-10.6); CARBON DIOXIDE LEVEL 35 MMOL/L (20-31); CHLORIDE LEVEL 101 MMOL/L (98-107); CREATININE FOR GFR 0.77 MG/DL (0.70-1.30); GLOMERULAR FILTRATION RATE > 60.0 (>49); GLUCOSE, FASTING 115 MG/DL (74-106); POTASSIUM SERUM 4.7 MMOL/L (3.5-5.1); SODIUM LEVEL 142 MMOL/L (136-145); TOTAL PROTEIN 7.2 G/DL (5.7-8.2)
[2024-08-21 16:18] LABS: THYROID STIMULATING HORMONE 2.683 uIU/ML (0.55-4.78)
[2024-08-21 16:27] LABS: PROCALCITONIN 0.12 ng/ml
[2024-08-21] MEDS: IPRATROPIUM 0.5MG/ALBUTEROL 2.5MG INH SOL UD 3ML (DUONEB) NEB ONE (16:42)
[2024-08-21] MEDS: ALBUTEROL SULFATE 2.5MG/0.5ML INH NEB SOLN INH ONE (16:43)
[2024-08-21 16:58] LABS: ABG BASE EXCESS 2.3 (-2.0-2.0); ABG HCO3 29.9 MMOL/L (22.0-26.0); ABG PARTIAL PRESSURE CO2 56.2 mmHg (35.0-45.0); ABG PARTIAL PRESSURE O2 68.1 mmHg (75.0-100.0); ABG STANDARD HCO3 26.3 MMOL/L. (22.0-26.0); ABG TOTAL CO2 31.6 MMOL/L (23.0-31.0); ABG pH (ARTERIAL) 7.344 UNITS (7.350-7.450)
[2024-08-21 17:21] LABS: CK-MB VALUE MASS < 1.0 NG/ML (<3.6)
[2024-08-21 17:23] LABS: CPK CREATINE PHOSPHOKINASE 51 U/L (46-171); MB/CK RELATIVE INDEX 1.96 (< OR =4)
[2024-08-21] MEDS ORDERED: MOM 30ML SUSPENSION UDC PO PRN (19:30)
[2024-08-21] MEDS ORDERED: GLUCAGON INJ 1MG VIAL SC PRN (19:30)
[2024-08-21] MEDS ORDERED: ACETAMINOPHEN 325 MG TAB PO PRN (19:30)
[2024-08-21] MEDS ORDERED: MAALOX 30 ML SUSP *UDC PO PRN (19:30)
[2024-08-21] MEDS ORDERED: GLUCOSE 4 GM CHEW PO PRN (19:30)
[2024-08-21] MEDS ORDERED: DEXTROSE 50% 50ML SYRINGE IV PRN (19:30)
[2024-08-21] MEDS: IPRATROPIUM 0.5MG/ALBUTEROL 2.5MG INH SOL UD 3ML (DUONEB) NEB SCH (20:12)
[2024-08-21] MEDS: INSULIN LISPRO (NovoLOG) PER UNIT SC SCH (20:22)
[2024-08-21] MEDS: DOCUSATE SODIUM 100MG CAPSULE PO SCH (20:23)
[2024-08-21] MEDS ORDERED: XALA0.007 OU (20:39)
[2024-08-21] MEDS ORDERED: LEVO1TAB39 PO (20:39)
[2024-08-21] MEDS ORDERED: TRUL10IN SC (20:39)
[2024-08-21] MEDS ORDERED: GLIP5TAB17 PO (20:39)
[2024-08-21] MEDS ORDERED: DORZ2SOL4 OU (20:42)
[2024-08-21] MEDS ORDERED: HOME MED LIST COMPLETE! XX SCH (20:45)
[2024-08-21 21:08] LABS: INR 1.04; PROTHROMBIN TIME 13.9 SECONDS (12.5-14.5)
[2024-08-21 22:15] VITALS: BP 117/70; TEMP 98.2; O2SAT 94
[2024-08-22] VITALS (11 sets, daily range): BP systolic 115–139; BP diastolic 69–73; TEMP 97.2–97.7; O2SAT 84–94
[2024-08-22 05:44] LABS: HEMATOCRIT 54.3 % (42.0-52.0); MEAN CORPUSCULAR HEMOGLOBIN 30.2 pg (27.0-33.0); MEAN CORPUSCULAR HGB CONC 33.1 g/dl (32.0-36.5); PLATELET COUNT, AUTOMATED 106 10^3/uL (150-450); RED BLOOD COUNT 5.97 10^6/uL (4.30-6.10); WHITE BLOOD COUNT 6.9 10^3/uL (4.0-10.0)
[2024-08-22] MEDS: LevoFLOXacin 750 MG TABLET PO SCH (05:51)
[2024-08-22 06:06] LABS: ALBUMIN 3.4 G/DL (3.2-5.2); ALKALINE PHOSPHATASE 89 U/L (40-129); ALT/SGPT 24 U/L (7.0-40); AST/SGOT 14 U/L (<34); BILIRUBIN,TOTAL 0.6 MG/DL (0.3-1.2); BLOOD UREA NITROGEN 23 MG/DL (9-23); CARBON DIOXIDE LEVEL 34 MMOL/L (20-31); CHLORIDE LEVEL 100 MMOL/L (98-107); CREATININE FOR GFR 0.93 MG/DL (0.70-1.30); GLOMERULAR FILTRATION RATE > 60.0 (>49); GLUCOSE, FASTING 262 MG/DL (74-106); MAGNESIUM LEVEL 1.9 MG/DL (1.8-2.4); POTASSIUM SERUM 4.8 MMOL/L (3.5-5.1); SODIUM LEVEL 141 MMOL/L (136-145); TOTAL PROTEIN 6.2 G/DL (5.7-8.2)
[2024-08-22] MEDS: ADVAIR HFA 115/21MCG INHALER INH SCH (06:13)
[2024-08-22] MEDS: DORZOLAMIDE 2% OPHTH SOLN 10 ML BTL OU SCH (08:03)
[2024-08-22] MEDS: ENOXAPARIN 40MG/0.4ML SYRINGE (J1650 PER 10MG) SC SCH (08:05)
[2024-08-22] MEDS: ATORVASTATIN 20 MG TAB PO SCH (08:05)
[2024-08-22] MEDS: INSULIN LISPRO (NovoLOG) PER UNIT SC SCH (08:05)
[2024-08-22] MEDS: ASPIRIN 81MG ENTERIC TABLET PO SCH (08:06)
[2024-08-22] MEDS: predniSONE 20 MG TAB PO SCH (08:06)
[2024-08-22] MEDS: PANTOPRAZOLE 40MG TAB (PROTONIX) PO SCH (08:06)
[2024-08-22] MEDS: CARVedilol 3.125 MG TAB PO SCH (08:07)
[2024-08-22] MEDS ORDERED: [UNRECOGNIZED DRUG - OTHER] INH SCH (09:00)
[2024-08-22] MEDS: TORSEMIDE 10 MG TABLET PO SCH (11:07)
[2024-08-22] MEDS: SPIRONOLACTONE 12.5MG PER 1/2 TABLET PO SCH (11:07)
[2024-08-22] MEDS: ALBUTEROL SULFATE 2.5MG/0.5ML INH NEB SOLN NEB PRN (11:27)
[2024-08-22] MEDS: TIOTROPIUM INHALER/CAPSULE (SPIRIVA) INH SCH (13:44)
[2024-08-22] MEDS: MONTELUKAST 10 MG TAB PO SCH (20:50)
[2024-08-22] MEDS: LATANOPROST 0.005% OPHTH SOLN 2.5 ML OU SCH (20:52)
[2024-08-23] VITALS: BP 137/91; TEMP 97.2; O2SAT 91
[2024-08-23 04:17] VITALS: BP 124/76; TEMP 97.3; O2SAT 87
[2024-08-23 08:00] VITALS: BP 124/76; TEMP 96.8; O2SAT 89
[2024-08-23 08:13] VITALS: BP 124/76
[2024-08-23 12:00] VITALS: BP 126/75; TEMP 97; O2SAT 92
[2024-08-23] MEDS ORDERED: PRED10TA2 PO (13:51)
[2024-08-23] MEDS ORDERED: LEVO1TAB40 PO (13:51)
[2024-08-23] MEDS ORDERED: PRED20TA PO (13:52)
[2024-08-23] MEDS ORDERED: DOXY-440 PO (13:52)
[2024-08-23] MEDS ORDERED: ALBU8.5H INH (13:52)
[2024-08-23] MEDS ORDERED: IPRA0.00 INH (13:52)
[2024-08-23] MEDS ORDERED: MUCI1TAB16 PO (13:53)
== END 2024-08-23 15:42 | disposition home health service (06) ==
LOC: M ED 14:17 → EDBD 14:17 → M ED INP 14:18 → M MSPAV 20:13
PROVIDERS: ADMIT Family Medicine; ATTEND General Practice
DX: J96.01 Acute respiratory failure with hypoxia (principal); J96.12 Chronic respiratory failure with hypercapnia; B97.29 Other coronavirus as the cause of diseases classified elsewhere; D75.1 Secondary polycythemia; E87.3 Alkalosis; Z99.81 Dependence on supplemental oxygen; G47.33 Obstructive sleep apnea (adult) (pediatric); I50.20 Unspecified systolic (congestive) heart failure; I42.9 Cardiomyopathy, unspecified; I44.7 Left bundle-branch block, unspecified; Z95.810 Presence of automatic (implantable) cardiac defibrillator; D69.59 Other secondary thrombocytopenia; E66.9 Obesity, unspecified; E78.5 Hyperlipidemia, unspecified; E11.9 Type 2 diabetes mellitus without complications; Z87.891 Personal history of nicotine dependence; I27.81 Cor pulmonale (chronic); K02.9 Dental caries, unspecified; H40.9 Unspecified glaucoma; H16.223 Keratoconjunctivitis sicca, not specified as Sjogren's, bilateral; K76.0 Fatty (change of) liver, not elsewhere classified; Z79.82 Long term (current) use of aspirin; Z79.84 Long term (current) use of oral hypoglycemic drugs; Z79.2 Long term (current) use of antibiotics; Z79.52 Long term (current) use of systemic steroids
CPT/HCPCS: 36415; 36600; 71045; 80048; 80053; 80076; 82550; 82553; 82803; 83605; 83735; 83880; 84145; 84443; 84484; 85025; 85027; 85610; 85730; 87040; 87070; 87205; 87486; 87581; 87633; 87798; 93005; 93041; 94640; 94660; 94760; 96372; 96374; 97161; 99285; J1650; J1815; J2919; J7512

== ENCOUNTER 2024-10-14 04:04 | Inpatient (IN) | payer OTHER ==
[~2024-10-14] VITALS: Ht 185.4 cm; Wt 122.6 kg
[~2024-10-14 04:04] MED LIST changes: +ALBU8.5H INH; +DORZ2SOL4 OU; +GLIP5TAB17 PO; +LEVO1TAB39 PO; +LEVO1TAB40 PO; +MUCI1TAB16 PO; +TRUL10IN SC; +XALA0.007 OU
[2024-10-14 04:34] LABS: VENOUS BASE EXCESS 4.2 (-2.0-2.0); VENOUS HCO3 33.9 MMOL/L (23.0-27.0); VENOUS PARTIAL PRESSURE CO2 72.5 mmHg (38.0-50.0); VENOUS PARTIAL PRESSURE O2 65.2 mmHg (30.0-50.0); VENOUS PH 7.288 UNITS (7.330-7.430); VENOUS STANDARD HCO3 28.1 MMOL/L; VENOUS TOTAL CO2 36.1 MMOL/L (24.0-28.0)
[2024-10-14] MEDS: IPRATROPIUM 0.5MG/ALBUTEROL 2.5MG INH SOL UD 3ML (DUONEB) NEB ONE (04:36)
[2024-10-14 04:39] LABS: BASO % 0.5 % (0.0-1.0); EOS # 0.4 10^3/uL (0.0-0.5); HEMATOCRIT 49.3 % (42.0-52.0); HEMOGLOBIN 16.5 g/dl (13.5-17.5); LYMPH # 0.9 10^3/uL (1.5-5.0); LYMPH % 10.6 % (24.0-44.0); MEAN CORPUSCULAR HEMOGLOBIN 30.8 pg (27.0-33.0); MEAN CORPUSCULAR HGB CONC 33.5 g/dl (32.0-36.5); MONO # 0.6 10^3/uL (0.0-0.8); MONO % 7.2 % (2.0-8.0); NEUTROPHILS # 6.7 10^3/uL (1.5-8.5); NEUTROPHILS % 77.2 % (36.0-66.0); PLATELET COUNT, AUTOMATED 101 10^3/uL (150-450); RED BLOOD COUNT 5.36 10^6/uL (4.30-6.10); WHITE BLOOD COUNT 8.7 10^3/uL (4.0-10.0)
[2024-10-14 05:08] LABS: ALBUMIN 3.4 G/DL (3.2-5.2); ALKALINE PHOSPHATASE 81 U/L (40-129); ALT/SGPT 18 U/L (7.0-40); AST/SGOT 12 U/L (<34); BILIRUBIN,DIRECT 0.2 MG/DL (<0.4); BILIRUBIN,TOTAL 0.6 MG/DL (0.3-1.2); BLOOD UREA NITROGEN 18 MG/DL (9-23); CALCIUM LEVEL 8.4 MG/DL (8.3-10.6); CARBON DIOXIDE LEVEL 35 MMOL/L (20-31); CHLORIDE LEVEL 101 MMOL/L (98-107); CREATININE FOR GFR 0.83 MG/DL (0.70-1.30); GLOMERULAR FILTRATION RATE > 60.0 (>49); GLUCOSE, FASTING 213 MG/DL (74-106); POTASSIUM SERUM 4.3 MMOL/L (3.5-5.1); SODIUM LEVEL 143 MMOL/L (136-145); TOTAL PROTEIN 6.1 G/DL (5.7-8.2)
[2024-10-14 06:11] LABS: ABG BASE EXCESS -1.3 (-2.0-2.0); ABG HCO3 27.6 MMOL/L (22.0-26.0); ABG O2 SATURATION 92.8 % (95.0-99.0); ABG PARTIAL PRESSURE O2 65.5 mmHg (75.0-100.0); ABG STANDARD HCO3 23.3 MMOL/L. (22.0-26.0); ABG TOTAL CO2 29.6 MMOL/L (23.0-31.0); ABG pH (ARTERIAL) 7.259 UNITS (7.350-7.450)
[2024-10-14 06:17] LABS: ABG PARTIAL PRESSURE CO2 63.1 mmHg (35.0-45.0)
[2024-10-14] MEDS ORDERED: ISOVUE-370 76% 100ML VIAL As Ordered ONE (06:47)
[2024-10-14 07:05] LABS: CK-MB VALUE MASS < 1.0 NG/ML (<3.6)
[2024-10-14 07:06] LABS: CPK CREATINE PHOSPHOKINASE 55 U/L (46-171); MB/CK RELATIVE INDEX 1.81 (< OR =4)
[2024-10-14] MEDS: ALBUTEROL SULFATE 2.5MG/0.5ML INH NEB SOLN INH ONE (07:55)
[2024-10-14 08:08] LABS: ABG BASE EXCESS 1.5 (-2.0-2.0); ABG HCO3 29.4 MMOL/L (22.0-26.0); ABG O2 SATURATION 93.9 % (95.0-99.0); ABG PARTIAL PRESSURE CO2 58.7 mmHg (35.0-45.0); ABG PARTIAL PRESSURE O2 66.3 mmHg (75.0-100.0); ABG STANDARD HCO3 25.7 MMOL/L. (22.0-26.0); ABG TOTAL CO2 31.2 MMOL/L (23.0-31.0); ABG pH (ARTERIAL) 7.317 UNITS (7.350-7.450)
[2024-10-14] MEDS ORDERED: DEXTROSE 50% 50ML SYRINGE IV PRN (09:15)
[2024-10-14] MEDS ORDERED: GLUCAGON INJ 1MG VIAL SC PRN (09:15)
[2024-10-14] MEDS ORDERED: GLUCOSE 4 GM CHEW PO PRN (09:15)
[2024-10-14] MEDS ORDERED: MUCI1TAB16 PO (09:31)
[2024-10-14] MEDS ORDERED: SILD50TA PO (09:32)
[2024-10-14] MEDS ORDERED: HOME MED LIST COMPLETE! XX SCH (09:35)
[2024-10-14] MEDS: LanTUS (INSULIN GLARGINE INJ) 1 UNITS/0.01 ML SC SCH ×2 (10:00→21:38)
[2024-10-14] MEDS: cefTRIAXone SOD 2 GM in DEXTROSE 5% (D5W) ADV/MINI-BAG 50 ML IV ONE (10:00)
[2024-10-14] MEDS: methylPREDNISolone 40MG 1ML VIAL IV SCH (10:01)
[2024-10-14] MEDS: DOXYCYCLINE HYCLATE 100 MG in DEXTROSE 5% (D5W) MINI-BAG PLU 100 ML IV ONE (10:53)
[2024-10-14] MEDS: BUDESONIDE 0.5 MG/2 ML INHALATION SUSPENSION NEB SCH (11:34)
[2024-10-14] MEDS: ALBUTEROL SULFATE 2.5MG/0.5ML INH NEB SOLN NEB SCH (11:34)
[2024-10-14] MEDS: FORMOTEROL FUMARATE 20 MCG/2 ML INHALATION SOLUTION (PERFOROMIST) INH SCH (11:34)
[2024-10-14] MEDS: GLYCOPYRROLATE INJ 0.2 MG/ML 2 ML VIAL NEB SCH (11:35)
[2024-10-14] MEDS: INSULIN LISPRO (NovoLOG) PER UNIT SC SCH ×2 (13:39→21:38)
[2024-10-14 16:57] VITALS: BP 128/67; TEMP 97.1; O2SAT 96
[2024-10-14 19:50] VITALS: BP 130/62; TEMP 97; O2SAT 92
[2024-10-14] MEDS: ATORVASTATIN 20 MG TAB PO SCH (21:39)
[2024-10-14] MEDS: LATANOPROST 0.005% OPHTH SOLN 2.5 ML OU SCH (21:39)
[2024-10-14] MEDS: DORZOLAMIDE 2% OPHTH SOLN 10 ML BTL OU SCH (21:39)
[2024-10-14] MEDS: DOXYCYCLINE HYCLATE 100MG TABLET PO SCH (21:39)
[2024-10-14] MEDS: MONTELUKAST 10 MG TAB PO SCH (21:40)
[2024-10-14] MEDS: CARVedilol 3.125 MG TAB PO SCH (21:40)
[2024-10-14 23:28] VITALS: BP 129/73; TEMP 97.3; O2SAT 92
[2024-10-15 03:48] VITALS: BP 110/61; TEMP 98; O2SAT 97
[2024-10-15 05:46] LABS: VENOUS BASE EXCESS 1.1 (-2.0-2.0); VENOUS HCO3 28.7 MMOL/L (23.0-27.0); VENOUS O2 SATURATION 96.7 % (60.0-80.0); VENOUS PARTIAL PRESSURE CO2 57.8 mmHg (38.0-50.0); VENOUS PARTIAL PRESSURE O2 91.1 mmHg (30.0-50.0); VENOUS PH 7.314 UNITS (7.330-7.430); VENOUS STANDARD HCO3 25.4 MMOL/L; VENOUS TOTAL CO2 30.5 MMOL/L (24.0-28.0)
[2024-10-15 05:51] LABS: BASO % 0.1 % (0.0-1.0); HEMATOCRIT 44.4 % (42.0-52.0); LYMPH # 0.7 10^3/uL (1.5-5.0); MEAN CORPUSCULAR HEMOGLOBIN 30.5 pg (27.0-33.0); MEAN CORPUSCULAR HGB CONC 33.8 g/dl (32.0-36.5); MEAN CORPUSCULAR VOLUME 90.4 fl (80.0-96.0); MONO # 0.4 10^3/uL (0.0-0.8); MONO % 2.9 % (2.0-8.0); NEUTROPHILS # 11.1 10^3/uL (1.5-8.5); NEUTROPHILS % 90.3 % (36.0-66.0); PLATELET COUNT, AUTOMATED 112 10^3/uL (150-450); RED BLOOD COUNT 4.91 10^6/uL (4.30-6.10); WHITE BLOOD COUNT 12.2 10^3/uL (4.0-10.0)
[2024-10-15 06:19] LABS: BLOOD UREA NITROGEN 25 MG/DL (9-23); CARBON DIOXIDE LEVEL 34 MMOL/L (20-31); CHLORIDE LEVEL 99 MMOL/L (98-107); CREATININE FOR GFR 0.78 MG/DL (0.70-1.30); GLOMERULAR FILTRATION RATE > 60.0 (>49); GLUCOSE, FASTING 282 MG/DL (74-106); POTASSIUM SERUM 5.1 MMOL/L (3.5-5.1); SODIUM LEVEL 139 MMOL/L (136-145)
[2024-10-15 07:26] VITALS: BP 123/64; TEMP 98; TEMP 98.6; O2SAT 100
[2024-10-15] MEDS: ASPIRIN 81MG ENTERIC TABLET PO SCH (08:59)
[2024-10-15] MEDS: ENOXAPARIN 40MG/0.4ML SYRINGE (J1650 PER 10MG) SC SCH (08:59)
[2024-10-15] MEDS: cefTRIAXone SOD 2 GM in DEXTROSE 5% (D5W) ADV/MINI-BAG 50 ML IV SCH (09:00)
[2024-10-15] MEDS: glipiZIDE (GLUCOTROL) 5 MG TAB PO SCH (09:03)
[2024-10-15] MEDS: LanTUS (INSULIN GLARGINE INJ) 1 UNITS/0.01 ML SC SCH (09:11)
[2024-10-15] MEDS: guaiFENesin ER TABLET 600 MG TAB PO SCH (11:04)
[2024-10-15] MEDS: FUROSEMIDE 40MG/4ML VIAL IV ONE (12:50)
[2024-10-15] MEDS: INSULIN LISPRO (NovoLOG) PER UNIT SC SCH (12:51)
[2024-10-15 16:00] VITALS: BP 134/62; TEMP 97.4; O2SAT 100
[2024-10-15 17:49] VITALS: BP 132/64; TEMP 98.4; O2SAT 93
[2024-10-15 21:33] VITALS: BP 129/63; TEMP 98.6; O2SAT 94
[2024-10-16 03:58] VITALS: BP 117/71; TEMP 98.1; O2SAT 92
[2024-10-16 05:05] LABS: VENOUS PH 7.325 UNITS (7.330-7.430)
[2024-10-16 05:06] LABS: VENOUS BASE EXCESS 3.8 (-2.0-2.0); VENOUS HCO3 31.8 MMOL/L (23.0-27.0); VENOUS O2 SATURATION 99.1 % (60.0-80.0); VENOUS PARTIAL PRESSURE CO2 62.4 mmHg (38.0-50.0); VENOUS STANDARD HCO3 27.9 MMOL/L; VENOUS TOTAL CO2 33.7 MMOL/L (24.0-28.0)
[2024-10-16 05:10] LABS: BASO % 0.1 % (0.0-1.0); HEMATOCRIT 42.6 % (42.0-52.0); HEMOGLOBIN 14.3 g/dl (13.5-17.5); LYMPH # 1.1 10^3/uL (1.5-5.0); MEAN CORPUSCULAR HEMOGLOBIN 30.5 pg (27.0-33.0); MEAN CORPUSCULAR HGB CONC 33.6 g/dl (32.0-36.5); MEAN CORPUSCULAR VOLUME 90.8 fl (80.0-96.0); MONO # 0.9 10^3/uL (0.0-0.8); MONO % 6.1 % (2.0-8.0); NEUTROPHILS # 11.9 10^3/uL (1.5-8.5); NEUTROPHILS % 84.8 % (36.0-66.0); PLATELET COUNT, AUTOMATED 115 10^3/uL (150-450); RED BLOOD COUNT 4.69 10^6/uL (4.30-6.10)
[2024-10-16 05:39] LABS: BLOOD UREA NITROGEN 33 MG/DL (9-23); CALCIUM LEVEL 8.7 MG/DL (8.3-10.6); CARBON DIOXIDE LEVEL 34 MMOL/L (20-31); CHLORIDE LEVEL 101 MMOL/L (98-107); GLOMERULAR FILTRATION RATE > 60.0 (>49); GLUCOSE, FASTING 259 MG/DL (74-106); POTASSIUM SERUM 4.6 MMOL/L (3.5-5.1); SODIUM LEVEL 141 MMOL/L (136-145)
[2024-10-16 08:15] VITALS: BP 120/61; TEMP 98.4; O2SAT 94
[2024-10-16 12:00] VITALS: BP 119/63; TEMP 98.8; O2SAT 93
[2024-10-16] MEDS: SPIRONOLACTONE 12.5MG PER 1/2 TABLET PO SCH (12:54)
[2024-10-16] MEDS: TORSEMIDE 10 MG TABLET PO SCH (12:54)
[2024-10-16] MEDS: INSULIN LISPRO (NovoLOG) PER UNIT SC SCH (12:55)
[2024-10-16 16:04] VITALS: BP 126/58; TEMP 98.2; O2SAT 91
[2024-10-16] MEDS: methylPREDNISolone 40MG 1ML VIAL IV SCH (18:09)
[2024-10-16 19:40] VITALS: BP 121/56; TEMP 97.5; O2SAT 91
[2024-10-17 04:27] LABS: BASO % 0.2 % (0.0-1.0); HEMATOCRIT 43.5 % (42.0-52.0); HEMOGLOBIN 14.7 g/dl (13.5-17.5); LYMPH # 0.8 10^3/uL (1.5-5.0); LYMPH % 7.2 % (24.0-44.0); MEAN CORPUSCULAR HEMOGLOBIN 30.7 pg (27.0-33.0); MEAN CORPUSCULAR HGB CONC 33.8 g/dl (32.0-36.5); MEAN CORPUSCULAR VOLUME 90.8 fl (80.0-96.0); MONO # 0.6 10^3/uL (0.0-0.8); MONO % 5.7 % (2.0-8.0); NEUTROPHILS # 9.6 10^3/uL (1.5-8.5); NEUTROPHILS % 85.4 % (36.0-66.0); PLATELET COUNT, AUTOMATED 109 10^3/uL (150-450); RED BLOOD COUNT 4.79 10^6/uL (4.30-6.10); WHITE BLOOD COUNT 11.3 10^3/uL (4.0-10.0)
[2024-10-17 04:44] VITALS: BP 116/59; TEMP 97.6; O2SAT 96
[2024-10-17 04:48] LABS: BLOOD UREA NITROGEN 35 MG/DL (9-23); CALCIUM LEVEL 8.6 MG/DL (8.3-10.6); CARBON DIOXIDE LEVEL 35 MMOL/L (20-31); CHLORIDE LEVEL 98 MMOL/L (98-107); CREATININE FOR GFR 0.89 MG/DL (0.70-1.30); GLOMERULAR FILTRATION RATE > 60.0 (>49); GLUCOSE, FASTING 313 MG/DL (74-106); POTASSIUM SERUM 4.3 MMOL/L (3.5-5.1); SODIUM LEVEL 138 MMOL/L (136-145)
[2024-10-17 07:22] VITALS: BP 114/59; TEMP 97.7; O2SAT 95
[2024-10-17] MEDS ORDERED: MUCI600T31 PO (07:35)
[2024-10-17] MEDS ORDERED: PRED10TA2 PO (07:35)
[2024-10-17] MEDS ORDERED: CEFD300CAP PO (07:35)
[2024-10-17] MEDS ORDERED: DOXY100T PO (07:35)
[2024-10-17 08:13] VITALS: BP 114/59
[2024-10-17] MEDS: LanTUS (INSULIN GLARGINE INJ) 1 UNITS/0.01 ML SC SCH (08:17)
== END 2024-10-17 11:12 | disposition home or self-care (01) | DRG 133 ==
LOC: M ED 04:04 → M ED INP 09:12 → M PCU 16:52
PROVIDERS: ADMIT Internal Medicine Nephrology; ATTEND Internal Medicine Nephrology
DX: J96.21 Acute and chronic respiratory failure with hypoxia (principal); J18.9 Pneumonia, unspecified organism; I11.0 Hypertensive heart disease with heart failure; D69.6 Thrombocytopenia, unspecified; I27.20 Pulmonary hypertension, unspecified; E66.2 Morbid (severe) obesity with alveolar hypoventilation; I50.42 Chronic combined systolic (congestive) and diastolic (congestive) heart failure; Z99.81 Dependence on supplemental oxygen; I27.81 Cor pulmonale (chronic); J44.1 Chronic obstructive pulmonary disease with (acute) exacerbation; J43.2 Centrilobular emphysema; K76.0 Fatty (change of) liver, not elsewhere classified; R91.1 Solitary pulmonary nodule; Z79.899 Other long term (current) drug therapy; E11.9 Type 2 diabetes mellitus without complications; Z87.891 Personal history of nicotine dependence; E78.5 Hyperlipidemia, unspecified; H40.9 Unspecified glaucoma; H02.403 Unspecified ptosis of bilateral eyelids; I44.7 Left bundle-branch block, unspecified; J96.22 Acute and chronic respiratory failure with hypercapnia

== ENCOUNTER → 2024-11-03 | Outpatient (REF) | payer OTHER, MEDICAID ==
[~2024-11-03] MED LIST changes: +CEFD300CAP PO; +DOXY100T PO; +MUCI600T31 PO; +SILD50TA PO
[2024-11-03 18:13] LABS: BASO # 0.1 10^3/uL (0.0-0.2); BASO % 0.7 % (0.0-1.0); EOS # 0.4 10^3/uL (0.0-0.5); EOS % 3.7 % (0.0-3.0); HEMATOCRIT 51.6 % (42.0-52.0); HEMOGLOBIN 16.8 g/dl (13.5-17.5); LYMPH # 1.6 10^3/uL (1.5-5.0); MEAN CORPUSCULAR HEMOGLOBIN 30.4 pg (27.0-33.0); MEAN CORPUSCULAR HGB CONC 32.6 g/dl (32.0-36.5); MEAN CORPUSCULAR VOLUME 93.5 fl (80.0-96.0); MONO # 0.8 10^3/uL (0.0-0.8); MONO % 7.2 % (2.0-8.0); NEUTROPHILS # 7.8 10^3/uL (1.5-8.5); NEUTROPHILS % 72.8 % (36.0-66.0); PLATELET COUNT, AUTOMATED 110 10^3/uL (150-450); RED BLOOD COUNT 5.52 10^6/uL (4.30-6.10); WHITE BLOOD COUNT 10.7 10^3/uL (4.0-10.0)
[2024-11-03 18:31] LABS: ALBUMIN 3.7 G/DL (3.2-5.2); ALKALINE PHOSPHATASE 84 U/L (40-129); ALT/SGPT 25 U/L (7.0-40); AST/SGOT < 8 U/L (<34); BLOOD UREA NITROGEN 28 MG/DL (9-23); CARBON DIOXIDE LEVEL 38 MMOL/L (20-31); CHLORIDE LEVEL 97 MMOL/L (98-107); CHOLESTEROL LEVEL 160 MG/DL (<200); CHOLESTEROL RISK RATIO 3.72 (<5); CREATININE FOR GFR 0.98 MG/DL (0.70-1.30); GLOMERULAR FILTRATION RATE 86.7 (>49); GLUCOSE, FASTING 246 MG/DL (74-106); LDL CHOLESTEROL 70.4 MG/DL (<100); POTASSIUM SERUM 4.4 MMOL/L (3.5-5.1); SODIUM LEVEL 141 MMOL/L (136-145); TOTAL PROTEIN 6.5 G/DL (5.7-8.2); TRIGLYCERIDES LEVEL 233 MG/DL (<150)
[2024-11-03 21:15] LABS: HEMOGLOBIN A1c 8.9 % (4.0-6.0)
== END ==
LOC: M PLALAB 17:23
PROVIDERS: ATTEND Student in an Organized Health Care Education/Training Program
DX: Z00.00 Encounter for general adult medical examination without abnormal findings (principal)

== ENCOUNTER → 2025-07-05 | Outpatient (REF) | payer OTHER ==
[~2025-07-05] MED LIST changes: -COLC0.6T47 PO; +COLC0.6T53 PO
== END ==
LOC: M SFHCPLAZ 15:37
PROVIDERS: ATTEND Family Medicine
DX: Z53.9 Procedure and treatment not carried out, unspecified reason (principal)

== ENCOUNTER → 2025-07-05 | Outpatient (CLI) | payer OTHER ==
[2025-07-05 17:45] LABS: PLATELET COUNT, AUTOMATED 150 10^3/uL (150-450)
[2025-07-05 18:12] LABS: IRON (FE) 56 UG/DL (65-175); PERCENT SATURATION 17.3 % (19.7-50.0)
[2025-07-05 18:13] LABS: VITAMIN B12 LEVEL 758 PG/ML (211-911)
[2025-07-05 18:17] LABS: ALT/SGPT 27 U/L (7.0-40); AST/SGOT 21 U/L (<34); CALCIUM LEVEL 9.0 MG/DL (8.3-10.6); CARBON DIOXIDE LEVEL > 40.0 MMOL/L (20-31); CHLORIDE LEVEL 93 MMOL/L (98-107); CHOLESTEROL LEVEL 141 MG/DL (<200); CHOLESTEROL RISK RATIO 5.22 (<5); CREATININE FOR GFR 0.78 MG/DL (0.70-1.30); GLOMERULAR FILTRATION RATE > 90.0 (>49); LDL CHOLESTEROL 69.8 MG/DL (<100); NON-HDL-C 114.0 MG/DL; POTASSIUM SERUM 4.6 MMOL/L (3.5-5.1); SODIUM LEVEL 140 MMOL/L (136-145); TOTAL 25(OH) VITAMIN D 47.2 NG/ML (20.0-100.0); TRIGLYCERIDES LEVEL 221 MG/DL (<150)
[2025-07-05 18:23] LABS: ESTIMATED AVERAGE GLUCOSE 169.0 MG/DL (60-110)
== END ==
LOC: M PLALAB 15:56
PROVIDERS: ATTEND Family Medicine
DX: I12.9 Hypertensive chronic kidney disease with stage 1 through stage 4 chronic kidney disease, or unspecified chronic kidney disease (principal); N18.30 Chronic kidney disease, stage 3 unspecified